=== PATIENT | female | born 1955 | race Caucasian/White ===

== ENCOUNTER 2016-11-29 21:16 | Emergency (ER) | payer MEDICAID ==
--- NOTE | 2016-11-29 21:49 | ED Physician Documentation ---
PD HPI NVD - Stated complaint Stated Complaint: NAUSEA/VOMITING - Chief complaint Chief Complaint: Abd Pain - History obtained from History obtained from: Patient - History of Present Illness Timing - onset: How many days ago (2) Timing - duration: Days (2) Timing - details: Gradual onset, Constant, Waxing and waning Pain level max: 10 Pain level now: 10 Associated symptoms: Abdominal pain. No: Fever Improved by: Laying still Worsened by: Eating, Moving, Palpation Similar symptoms before: Has not had sx before Recently seen: Not recently seen - Additonal information Additional information: c/o nausea, vomiting since 10 AM Tuesday (2 days ago). Today, unable to keep anything down (PO intake results in vomiting and cramping abd. pain). Also c/o epigastric pain Review of Systems Constitutional: denies: Fever, Chills, Sweats Eyes: reports: Reviewed and negative Ears: reports: Reviewed and negative Nose: reports: Reviewed and negative Throat: reports: Reviewed and negative Cardiac: reports: Reviewed and negative Respiratory: reports: Reviewed and negative GI: reports: Abdominal Pain, Nausea, Vomiting. denies: Abdominal Swelling, Constipation, Diarrhea : denies: Dysuria, Frequency Skin: reports: Reviewed and negative Musculoskeletal: reports: Reviewed and negative Neurologic: reports: Reviewed and negative PD PAST MEDICAL HISTORY - Past Medical History Past Medical History: Yes Cardiovascular: Hypertension Psych: Anxiety - Past Surgical History Past Surgical History: Yes - Allergies Allergies/Adverse Reactions: Allergies Allergy/AdvReac Type Severity Reaction Status Date / Time No Known Drug Allergies Allergy Verified 11/29/16 21:30 PD ED PE NORMAL - Vitals Vital signs reviewed: Yes - General General: Alert and oriented X 3, Well developed/nourished, Other (appears uncomfortable; nauseas and painful discomfort) - HEENT HEENT: Other (dry mucous membranes) - Neck Neck: Supple, no meningeal sign - Cardiac Cardiac: RRR, No murmur - Respiratory Respiratory: No respiratory distress, Clear bilaterally - Abdomen Abdomen: Normal bowel sounds, Soft - Back Back: No CVA TTP - Derm Derm: Normal color, Warm and dry - Extremities Extremities: No edema - Neuro Neuro: Alert and oriented X 3 PD ED PE EXPANDED - Abdomen Abdomen: Tender to palpation, Epigastric. No: Rebound Results - Vitals Vitals: Vital Signs - 24 hr 1011/29/16 11/29/16 21:26 22:49 23:23 Temperature 36.1 C L Heart Rate 59 L 58 L 58 L Respiratory 17 19 20 Rate Blood Pressure 91/66 127/81 H 111/67 O2 Saturation 99 99 98 11/30/16 11/30/16 11/30/16 00:01 00:20 00:49 Temperature Heart Rate 57 L 56 L 57 L Respiratory 19 19 19 Rate Blood Pressure 133/74 H 134/77 H 109/70 O2 Saturation 100 100 100 11/30/16 11/30/16 11/30/16 01:07 01:10 01:19 Temperature Heart Rate 57 L 57 L 58 L Respiratory 19 19 19 Rate Blood Pressure 113/82 H 121/67 122/67 O2 Saturation 100 100 100 11/30/16 11/30/16 01:42 02:01 Temperature Heart Rate 60 58 L Respiratory 19 18 Rate Blood Pressure 126/73 125/72 O2 Saturation 99 99 Oxygen O2 Source Nasal cannula - EKG (time done) No standard instances Rate: Rate (enter#) (54) Rhythm: Sinus bradycardia, LAE [place]: Normal Intervals: Normal [place], Prolonged QT QRS: LVH Ischemia: ST elevation c/w ischemia (V2, V3), Q waves (V2, V3), T wave inversion (V2-V6, I, aVL) - Labs Labs: Laboratory Tests 11/29/16 11/29/16 11/29/16 21:40 22:00 22:00 WBC 20.9 H RBC 5.54 H Hgb 17.0 H Hct 51.8 H MCV 93.4 MCH 30.7 MCHC 32.8 RDW 12.8 Plt Count 224 MPV 11.5 H Neut # Not Reportable Lymph # Not Reportable [place] # Not Reportable Eos # Not Reportable Baso # Not Reportable Absolute Nucleated RBC Not Reportable Total Counted 100 Band Neuts % (Manual) 3 Nucleated RBC % Not Reportable Neutrophils # (Manual) 17.3 H Lymphocytes # (Manual) 2.1 Monocytes # (Manual) 1.5 H Differential Comment MANUAL DIFFERENTIAL Manual Slide Review Indicated Platelet Estimate NORMAL (130-450,000) Platelet Morphology NORMAL APPEARANCE RBC Morph Micro Appear NORMAL APPEARANCE VBG pH VBG pCO2 VBG pO2 VBG HCO3 VBG Total CO2 VBG O2 Saturation VBG Base Excess Sodium 125 L Potassium 3.6 Chloride 92 L Carbon Dioxide 9 L* Anion Gap 24.0 H BUN 34 H Creatinine 1.1 H Estimated GFR (MDRD) 51 L Glucose 469 H Calcium 8.7 Total Bilirubin 2.5 H AST 43 H ALT 59 Alkaline Phosphatase 73 Troponin I Total Protein 7.6 Albumin 3.8 Globulin 3.8 Albumin/Globulin Ratio 1.0 Amylase 90 Lipase 20 L Urine Color Urine Clarity Urine pH Ur Specific [place] Urine Protein Urine Glucose (UA) Urine Ketones Urine Occult Blood Urine Nitrite Urine Bilirubin Urine Urobilinogen Ur Leukocyte Esterase Urine RBC Urine WBC Ur Squamous Epith Cells Urine Bacteria Urine Casts Ur Microscopic Review Urine Culture Comments Serum Ketones Group A Strep Rapid Negative 11/29/16 11/29/16 11/29/16 22:00 22:00 22:55 WBC RBC Hgb Hct MCV MCH MCHC RDW Plt Count MPV Neut # Lymph # [place] # Eos # Baso # Absolute Nucleated RBC Total Counted Band Neuts % (Manual) Nucleated RBC % Neutrophils # (Manual) Lymphocytes # (Manual) Monocytes # (Manual) Differential Comment Manual Slide Review Platelet Estimate Platelet Morphology RBC Morph Micro Appear VBG pH 7.254 L VBG pCO2 21.0 L VBG pO2 59.8 H VBG HCO3 9.1 L VBG Total CO2 9.7 L VBG O2 Saturation 90.4 H VBG Base Excess -15.4 L Sodium Potassium Chloride Carbon Dioxide Anion Gap BUN Creatinine Estimated GFR (MDRD) Glucose Calcium Total Bilirubin AST ALT Alkaline Phosphatase Troponin I 1.26 H* Total Protein Albumin Globulin Albumin/Globulin Ratio Amylase Lipase Urine Color Urine Clarity Urine pH Ur Specific [place] Urine Protein Urine Glucose (UA) Urine Ketones Urine Occult Blood Urine Nitrite Urine Bilirubin Urine Urobilinogen Ur Leukocyte Esterase Urine RBC Urine WBC Ur Squamous Epith Cells Urine Bacteria Urine Casts Ur Microscopic Review Urine Culture Comments Serum Ketones MODERATE H Group A Strep Rapid 11/30/16 01:00 WBC RBC Hgb Hct MCV MCH MCHC RDW Plt Count MPV Neut # Lymph # [place] # Eos # Baso # Absolute Nucleated RBC Total Counted Band Neuts % (Manual) Nucleated RBC % Neutrophils # (Manual) Lymphocytes # (Manual) Monocytes # (Manual) Differential Comment Manual Slide Review Platelet Estimate Platelet Morphology RBC Morph Micro Appear VBG pH VBG pCO2 VBG pO2 VBG HCO3 VBG Total CO2 VBG O2 Saturation VBG Base Excess Sodium Potassium Chloride Carbon Dioxide Anion Gap BUN Creatinine Estimated GFR (MDRD) Glucose Calcium Total Bilirubin AST ALT Alkaline Phosphatase Troponin I Total Protein Albumin Globulin Albumin/Globulin Ratio Amylase Lipase Urine Color YELLOW Urine Clarity CLEAR Urine pH 6.0 Ur Specific [place] >=1.030 H Urine Protein 30 H Urine Glucose (UA) 500 H Urine Ketones >=80 H Urine Occult Blood TRACE-INTA Urine Nitrite NEGATIVE Urine Bilirubin NEGATIVE Urine Urobilinogen 0.2 (NORMAL) Ur Leukocyte Esterase NEGATIVE Urine RBC 0-5 Urine WBC 4-5 Ur Squamous Epith Cells MOD Squamous H Urine Bacteria Rare Urine Casts 6-10 Hyaline Casts Ur Microscopic Review INDICATED Urine Culture Comments NOT INDICATED Serum Ketones Group A Strep Rapid PD MEDICAL DECISION MAKING - ED course Complexity details: reviewed results, re-evaluated patient, considered differential, d/w patient ED course: D/W Dr. Garcia (cardiology at [facility]), recommends transfer to [facility] to hospitalist' s service. D/W Dr. Vuong, accepts patient although she asks that I enter both her name and Dr. Garcia as accepting physicians. Dr. Garcia had recommended heparin, aspirin, metoprolol PO, and plavix. Aspirin was given IL, heparin initiated in ED. Patient tolerated the Plavix. I held the metoprolol, as her heart rate was mid/upper 50s. - Critical Care Time(min): 60 Time Includes: Direct patient care, Reassess patient, Document care, Coordinate care, See progress note Data interpretation: Labs, Pulse ox, CXR, See progress note Procedures included in critical care time: See progress note Procedures excluded from critical care time: See progress note Departure - Departure Disposition: 02 Transfer Acute Care Hosp Clinical Impression: STEMI (ST elevation myocardial infarction) Qualifiers: Involved coronary artery: unspecified coronary artery Qualified Code(s): I21.3 - ST elevation (STEMI) myocardial infarction of unspecified site Condition: Stable Discharge Date/Time: 11/30/16 02:40
[2016-11-29 21:56] LABS: RAPID STREP SCREEN REAGENT QC YELLOW (YELLOW)
[2016-11-29] MEDS ORDERED: ONDANSETRON 4 MG/2 ML VIAL IVP STA ×2 (22:05→22:56)
[2016-11-29] MEDS ORDERED: SODIUM CHLORIDE 0.9% 1,000 ML IV STA ×2 (22:05→23:36)
[2016-11-29 22:17] LABS: BASOPHILS % (AUTO) 0.5 %; HCT - HEMATOCRIT 51.8 % (37.0-47.0); LYMPHOCYTES % (AUTO) 10.5 %; MEAN CORPUSCULAR HEMOGLOBIN 30.7 pg (27.0-31.0); MEAN CORPUSCULAR HGB CONC 32.8 g/dL (32.0-36.0); MEAN CORPUSCULAR VOLUME 93.4 fL (81.0-99.0); MEAN PLATELET VOLUME 11.5 fL (7.9-10.8); MONOCYTES % (AUTO) 8.1 %; NEUTROPHILS % (AUTO) 80.9 %; RED BLOOD COUNT 5.54 10^6/uL (4.20-5.40); RED CELL DISTRIBUTION WIDTH 12.8 % (12.0-15.0); UNCORRECTED WHITE BLOOD COUNT 20.9 x10^3/uL; WHITE BLOOD COUNT 20.9 x10^3/uL (4.8-10.8)
[2016-11-29] MEDS ORDERED: ONDANSETRON 4 MG/2 ML VIAL ONE ×2 (22:21→23:05)
[2016-11-29 22:31] LABS: BILIRUBIN,TOTAL 2.5 mg/dL (0.2-1.0); CALCIUM 8.7 mg/dL (8.5-10.3); CREATININE 1.1 mg/dL (0.4-1.0); POTASSIUM 3.6 mmol/L (3.5-5.0); TOTAL PROTEIN 7.6 g/dL (6.7-8.2)
[2016-11-29 22:40] LABS: BAND NEUTROPHILS % (MANUAL) 3 %; LYMPHOCYTES % (MANUAL) 10 %; NEUTROPHILS % (MANUAL) 80 %; NP AUTO DIFFERENTIAL? YES; NP MAN DIFFERENTIAL? NO; PLATELET ESTIMATE, MANUAL NORMAL (130-450,000) (NORMAL); PLATELET MORPHOLOGY NORMAL APPEARANCE (NORMAL); TOTAL CELLS COUNTED 100
[2016-11-29] MEDS ORDERED: MORPHINE 2 MG/ML SYRINGE IVP STA (22:57)
[2016-11-29] MEDS ORDERED: SODIUM CHLORIDE FLUSH 0.9% 10 ML SYRINGE IVP ONE (23:05)
[2016-11-29] MEDS ORDERED: MORPHINE 2 MG/ML SYRINGE ONE (23:05)
[2016-11-29 23:09] LABS: VBG BASE EXCESS -15.4 mmol/L (-2 - +2); VBG OXYGEN SATURATION 90.4 % (60-80); VBG PH 7.254 (7.31-7.41); VBG TOTAL CO2 9.7 mmol/L (24-29)
[2016-11-30] MEDS ORDERED: NITROGLYCERIN 2% PASTE TOP STA (00:20)
[2016-11-30] MEDS ORDERED: NITROGLYCERIN 2% PASTE TOP ONE (00:28)
[2016-11-30] MEDS ORDERED: ONDANSETRON 4 MG/2 ML VIAL IVP STA (00:29)
[2016-11-30] MEDS ORDERED: HEPARIN 5,000 UNIT/ML VIAL IVP STA (00:29)
[2016-11-30] MEDS ORDERED: HEPARIN 25,000 UNITS/500 ML NS 25,000 UNIT/500 ML BAG IV STA (00:30)
[2016-11-30] MEDS ORDERED: ONDANSETRON 4 MG/2 ML VIAL ONE (00:37)
[2016-11-30] MEDS ORDERED: HEPARIN 5,000 UNIT/ML VIAL ONE (00:37)
[2016-11-30] MEDS ORDERED: HEPARIN 25,000 UNITS/500 ML NS 25,000 UNIT/500 ML BAG IV ONE (00:38)
[2016-11-30] MEDS ORDERED: SODIUM CHLORIDE FLUSH 0.9% 10 ML SYRINGE IVP ONE (00:38)
[2016-11-30] MEDS ORDERED: NITROGLYCERIN 50 MG/250 ML 50 MG/250 ML BOTTLE IV STA (00:48)
[2016-11-30] MEDS ORDERED: ASPIRIN 300 MG SUPP PR STA (00:49)
[2016-11-30] MEDS ORDERED: CLOPIDOGREL 300 MG TABLET PO STA (00:49)
--- NOTE | 2016-11-30 00:51 | XRAY Preliminary Report ---
Exam: XR CHEST 1 VIEW IMPRESSION: Normal single view chest. [facility] SITE ID: [id number]
--- NOTE | 2016-11-30 00:54 | XRAY Report ---
EXAM: CHEST RADIOGRAPHY EXAM DATE: 11/30/2016 12:41 AM. CLINICAL HISTORY: Chest pain. COMPARISON: None. TECHNIQUE: 1 view. FINDINGS: Lungs/Pleura: No focal opacities evident. No pleural effusion. No pneumothorax. Mediastinum: Within exam limitations, the cardiomediastinal contour is normal. Other: None. IMPRESSION: Normal single view chest. [facility] Referring Provider Line: [phone] SITE ID: [id number]
[2016-11-30] MEDS ORDERED: NITROGLYCERIN 50 MG/250 ML 50 MG/250 ML BOTTLE IV ONE (00:57)
[2016-11-30] MEDS ORDERED: CLOPIDOGREL 300 MG TABLET PO ONE (00:57)
[2016-11-30] MEDS ORDERED: ASPIRIN 300 MG SUPP PR ONE (00:58)
[2016-11-30 01:08] LABS: BILIRUBIN,URINE NEGATIVE (NEGATIVE); UA w/ MICROSCOPIC CHARGE YES
[2016-11-30 01:11] LABS: UR CULTURE IF IND NOT INDICATED
[2016-11-30 02:02] VITALS: BP 125/72
== END 2016-11-30 02:40 | disposition short-term general hospital (02) ==
LOC: ED 21:16
DX: I21.3 ST elevation (STEMI) myocardial infarction of unspecified site (principal); I10 Essential (primary) hypertension; R94.31 Abnormal electrocardiogram [ECG] [EKG]
CPT/HCPCS: 36415; 71010; 80053; 81001; 82009; 82150; 82803; 83690; 84484; 85025; 87070; 87430; 93005; 96361; 96365; 96368; 96375; 96376; 99285; 99291; A9270; J2270; 81003; 87086

== ENCOUNTER 2016-11-30 02:29 | Outpatient (CLI) | payer MEDICAID | END 2016-11-30 02:30 | disposition short-term general hospital (02) | LOC: EMS 02:29 | PROVIDERS: ATTEND Surgery | DX: I21.3 ST elevation (STEMI) myocardial infarction of unspecified site (principal) | CPT/HCPCS: A0425; A0426 ==

== ENCOUNTER 2017-01-03 14:20 | Outpatient (CLI) | payer MEDICAID | END 2017-01-03 14:21 | disposition home or self-care (01) | LOC: RT.S 14:20 | PROVIDERS: ATTEND Nurse Practitioner Family | DX: I21.3 ST elevation (STEMI) myocardial infarction of unspecified site (principal); I10 Essential (primary) hypertension | CPT/HCPCS: 93005 ==

== ENCOUNTER 2017-05-28 11:52 | Emergency (ER) | payer MEDICAID ==
[2017-05-28] MEDS ORDERED: SODIUM CHLORIDE 0.9% 1,000 ML IV ONE ×2 (12:04)
--- NOTE | 2017-05-28 12:21 | ED Physician Documentation ---
History of Present Illness - Stated complaint Stated Complaint: HIGH BS/VOMITING - Chief complaint Chief Complaint: Abd Pain - History obtained from History obtained from: Patient - History of Present Illness Timing: Today Pain level max: 0 Pain level now: 0 Improved by: nothing Worsened by: nothing - Additonal information Additional information: states blood sugar of 500 this am. Emesis x 1. States had an MT approx 6 months ago, no stents placed. no interventions. Has mild dyspnea over the past few days. States has an inhaler. Mild chest pain with palpation or moving. Takes Lantus 30 units midday. States dx with DM in 11/30. No diarrhea. Doesn' t know her home meds. No urinary symptoms. No headache. No cough. no travel. no recent abx. Review of Systems Ten Systems: 10 systems reviewed and negative Constitutional: denies: Fever, Chills Nose: denies: Rhinorrhea / runny nose, Congestion Throat: denies: Sore throat Cardiac: denies: Palpitations Respiratory: denies: Dyspnea, Cough, Wheezing GI: reports: Vomiting. denies: Diarrhea : denies: Dysuria, Frequency, Hesitancy Skin: denies: Rash Musculoskeletal: denies: Neck pain, Back pain Neurologic: denies: Headache PD PAST MEDICAL HISTORY - Past Medical History Past Medical History: Yes Cardiovascular: Hypertension Respiratory: None Neuro: None Endocrine/Autoimmune: None GI: None CHANNELER: None : None HEENT: None Psych: Anxiety Musculoskeletal: None Derm: None - Past Surgical History Past Surgical History: Yes /CHANNELER: section HEENT: Tonsil/Adenoidectomy - Present Medications Home Medications: Ambulatory Orders Medication Instructions Recorded Confirmed Furosemide [Furosemide] 05/28/17 05/28/17 Insulin Glargine [Lantus Solostar] 05/28/17 05/28/17 Insulin Lispro [Humalog] 05/28/17 Lisinopril [Lisinopril] 05/28/17 PARoxetine HCl [Paroxetine HCl] 05/28/17 Spironolactone [Spironolactone] 05/28/17 - Allergies Allergies/Adverse Reactions: Allergies Allergy/AdvReac Type Severity Reaction Status Date / Time No Known Drug Allergies Allergy Verified 11/29/16 21:30 - Social History Does the pt smoke?: Yes Smoking Status: Current every day smoker Does the pt drink ETOH?: Yes Does the pt have substance abuse?: No - POLST Patient has POLST: No PD ED PE NORMAL - Vitals Vital signs reviewed: Yes - General General: Alert and oriented X 3, No acute distress, Well developed/nourished - HEENT HEENT: PERRL, Moist mucous membranes - Neck Neck: Supple, no meningeal sign - Cardiac Cardiac: RRR, Strong equal pulses, Other (mild TTP over the anterior chest wall. ) - Respiratory Respiratory: No respiratory distress, Clear bilaterally - Abdomen Abdomen: Soft, Non tender, Non distended - Back Back: No CVA TTP - Derm Derm: Warm and dry - Extremities Extremities: No edema - Neuro Neuro: Alert and oriented X 3 - Psych Psych: Normal mood, Normal affect Results - Vitals Vitals: Vital Signs - 24 hr 05/28/17 05/28/17 05/28/17 12:00 13:17 13:30 Temperature 36.8 C Heart Rate 60 62 72 Respiratory 18 19 18 Rate Blood Pressure 174/54 H 163/97 H O2 Saturation 97 97 95 05/28/17 14:39 Temperature Heart Rate 70 Respiratory 18 Rate Blood Pressure 143/78 H O2 Saturation 96 Oxygen O2 Source Room air - EKG (time done) 1208 Rate: Rate (enter#) (66) Rhythm: NSR [place]: Normal Intervals: Normal [place], Prolonged QT (borderline) QRS: Normal Ischemia: Normal ST segments - Labs Labs: Laboratory Tests 05/28/17 05/28/17 05/28/17 12:00 12:23 12:23 WBC 13.7 H RBC 4.32 Hgb 13.0 Hct 38.4 MCV 88.9 MCH 30.0 MCHC 33.7 RDW 12.9 Plt Count 182 MPV 10.5 Neut # 11.6 H Lymph # 1.5 [place] # 0.5 Eos # 0.0 Baso # 0.1 Absolute Nucleated RBC 0.01 Nucleated RBC % 0.0 VBG pH VBG pCO2 VBG pO2 VBG HCO3 VBG Total CO2 VBG O2 Saturation VBG Base Excess Sodium 131 L Potassium 4.7 Chloride 96 L Carbon Dioxide 23 Anion Gap 12.0 BUN 31 H Creatinine 1.0 Estimated GFR (MDRD) 57 L Glucose 474 H POC Whole Bld Glucose 470 H Calcium 9.5 Total Bilirubin 0.8 AST 20 ALT 23 Alkaline Phosphatase 68 Troponin I Total Protein 7.8 Albumin 4.0 Globulin 3.8 Albumin/Globulin Ratio 1.1 Lipase 14 L Urine Color Urine Clarity Urine pH Ur Specific [place] Urine Protein Urine Glucose (UA) Urine Ketones Urine Occult Blood Urine Nitrite Urine Bilirubin Urine Urobilinogen Ur Leukocyte Esterase Ur Microscopic Review Urine Culture Comments Serum Ketones NEGATIVE 05/28/17 05/28/17 05/28/17 12:23 12:23 13:25 WBC RBC Hgb Hct MCV MCH MCHC RDW Plt Count MPV Neut # Lymph # [place] # Eos # Baso # Absolute Nucleated RBC Nucleated RBC % VBG pH 7.361 VBG pCO2 41.9 VBG pO2 35.0 VBG HCO3 23.2 VBG Total CO2 24.5 VBG O2 Saturation 68.4 VBG Base Excess -2.2 L Sodium Potassium Chloride Carbon Dioxide Anion Gap BUN Creatinine Estimated GFR (MDRD) Glucose POC Whole Bld Glucose Calcium Total Bilirubin AST ALT Alkaline Phosphatase Troponin I < 0.04 Total Protein Albumin Globulin Albumin/Globulin Ratio Lipase Urine Color YELLOW Urine Clarity CLEAR Urine pH 5.0 Ur Specific [place] 1.010 Urine Protein NEGATIVE Urine Glucose (UA) >=1000 H Urine Ketones 15 H Urine Occult Blood NEGATIVE Urine Nitrite NEGATIVE Urine Bilirubin NEGATIVE Urine Urobilinogen 0.2 (NORMAL) Ur Leukocyte Esterase NEGATIVE Ur Microscopic Review NOT INDICATED Urine Culture Comments NOT INDICATED Serum Ketones 05/28/17 05/28/17 14:00 14:35 WBC RBC Hgb Hct MCV MCH MCHC RDW Plt Count MPV Neut # Lymph # [place] # Eos # Baso # Absolute Nucleated RBC Nucleated RBC % VBG pH VBG pCO2 VBG pO2 VBG HCO3 VBG Total CO2 VBG O2 Saturation VBG Base Excess Sodium Potassium Chloride Carbon Dioxide Anion Gap BUN Creatinine Estimated GFR (MDRD) Glucose POC Whole Bld Glucose 425 H 350 H Calcium Total Bilirubin AST ALT Alkaline Phosphatase Troponin I Total Protein Albumin Globulin Albumin/Globulin Ratio Lipase Urine Color Urine Clarity Urine pH Ur Specific [place] Urine Protein Urine Glucose (UA) Urine Ketones Urine Occult Blood Urine Nitrite Urine Bilirubin Urine Urobilinogen Ur Leukocyte Esterase Ur Microscopic Review Urine Culture Comments Serum Ketones PD MEDICAL DECISION MAKING - ED course Complexity details: reviewed results, re-evaluated patient, considered differential, d/w patient, d/w family ED course: Patient is a 61-year-old female who presents to the emergency department with elevated blood sugars and vomiting 1. States she is not feeling well in general. Given IV fluids as well as insulin. Blood sugar decreased and she feels much improved. Tolerating p.o. without difficulty. Counseled at length regarding the importance of checking her blood sugar at home, taking her Lantus as prescribed and following up closely with her doctor so they can adjust her medications. Patient also counseled at length regarding the complications of diabetes. Patient counseled regarding signs and symptoms for which I believe and urgent re-evaluation would be necessary. Patient with good understanding of and agreement to plan and is comfortable going home at this time This document was made in part using voice recognition software. While efforts are made to proofread this document, sound alike and grammatical errors may occur. Departure - Departure Disposition: 01 Home, Self Care Clinical Impression: Hyperglycemia Condition: Good Instructions: ED Hyperglycemia Diabetic Follow-Up: Cici Hill ARNP [Primary Care Provider] - Within 1 week Comments: You need to take your lantus on a regular schedule and keep track of your blood sugars so your doctor can adjust your medications. Return if you worsen. Discharge Date/Time: 05/28/17 14:39
[2017-05-28 12:30] LABS: BASOPHILS # (AUTO) 0.1 10^3/uL (0.0-0.1); BASOPHILS % (AUTO) 0.6 %; EOSINOPHILS % (AUTO) 0.2 %; LYMPHOCYTES # (AUTO) 1.5 10^3/uL (1.5-3.5); LYMPHOCYTES % (AUTO) 10.9 %; MEAN CORPUSCULAR HGB CONC 33.7 g/dL (32.0-36.0); MEAN CORPUSCULAR VOLUME 88.9 fL (81.0-99.0); MEAN PLATELET VOLUME 10.5 fL (7.9-10.8); MONOCYTES # (AUTO) 0.5 10^3/uL (0.0-1.0); MONOCYTES % (AUTO) 3.7 %; NEUTROPHILS # (AUTO) 11.6 10^3/uL (1.5-6.6); NEUTROPHILS % (AUTO) 84.6 %; PLT - PLATELET COUNT 182 10^3/uL (130-450); RED BLOOD COUNT 4.32 10^6/uL (4.20-5.40); RED CELL DISTRIBUTION WIDTH 12.9 % (12.0-15.0); WHITE BLOOD COUNT 13.7 x10^3/uL (4.8-10.8)
[2017-05-28 12:33] LABS: VBG BASE EXCESS -2.2 mmol/L (-2 - +2); VBG PCO2 41.9 mmHg (41-51); VBG PH 7.361 (7.31-7.41); VBG TOTAL CO2 24.5 mmol/L (24-29)
[2017-05-28 12:41] LABS: ALBUMIN/GLOBULIN RATIO 1.1 (1.0-2.2); ALKALINE PHOSPHATASE 68 IU/L (42-121); ALT ALANINE AMINOTRANSFERASE 23 IU/L (10-60); AST ASPARTATE AMINOTRANSFERASE 20 IU/L (10-42); BILIRUBIN,TOTAL 0.8 mg/dL (0.2-1.0); BUN - BLOOD UREA NITROGEN 31 mg/dL (6-20); CALCIUM 9.5 mg/dL (8.5-10.3); CARBON DIOXIDE - CO2 23 mmol/L (21-32); CHLORIDE 96 mmol/L (101-111); GFR - MDRD 57 (>89); GLUCOSE 474 mg/dL (70-100); LIPASE 14 U/L (22-51); SODIUM 131 mmol/L (135-145); TOTAL PROTEIN 7.8 g/dL (6.7-8.2)
[2017-05-28] MEDS ORDERED: INSULIN REGULAR HUMAN 100 UNIT/1 ML 10 ML MDV IVP STA (12:51)
[2017-05-28] MEDS ORDERED: INSULIN REGULAR HUMAN 100 UNIT/1 ML 10 ML MDV SUBQ STA (12:51)
[2017-05-28 13:10] LABS: KETONES, SERUM (ACETEST) NEGATIVE (NEGATIVE)
[2017-05-28 13:39] LABS: BILIRUBIN,URINE NEGATIVE (NEGATIVE); GLUCOSE, URINE (UA) >=1000 mg/dL (NEGATIVE); KETONES,URINE (UA) 15 mg/dL (NEGATIVE); LEUKOCYTE ESTERASE, URINE NEGATIVE (NEGATIVE); NITRITE,URINE NEGATIVE (NEGATIVE); OCCULT BLOOD,URINE NEGATIVE (NEGATIVE); PROTEIN,URINE NEGATIVE (NEGATIVE); UROBILINOGEN,URINE 0.2 (NORMAL) E.U./dL (NORMAL)
[2017-05-28 13:40] LABS: CLARITY,URINE CLEAR (CLEAR)
[2017-05-28] MEDS ORDERED: PROMETHAZINE INJ 12.5 MG in SODIUM CHLORIDE 0.9% 50 ML IV STA (13:47)
[2017-05-28 14:39] VITALS: BP 143/78
== END 2017-05-28 14:39 | disposition home or self-care (01) ==
LOC: ED 11:52
DX: E11.65 Type 2 diabetes mellitus with hyperglycemia (principal); I25.2 Old myocardial infarction; I10 Essential (primary) hypertension; F17.200 Nicotine dependence, unspecified, uncomplicated; Z79.4 Long term (current) use of insulin
CPT/HCPCS: 36415; 80053; 81003; 82009; 82803; 83690; 84484; 85025; 96365; 99284; J1815; J7040; 81001; 87086; 93005

== ENCOUNTER 2017-11-11 06:51 | Emergency (ER) | payer MEDICAID ==
[2017-11-11] MEDS ORDERED: NITROGLYCERIN SL 0.4 MG TABLET SL STA (07:12)
[2017-11-11] MEDS ORDERED: SODIUM CHLORIDE 0.9% 1,000 ML IV ONE ×2 (07:12→08:47)
[2017-11-11] MEDS ORDERED: ASPIRIN CHEW 81 MG TABLET PO STA (07:12)
--- NOTE | 2017-11-11 07:18 | ED Physician Documentation ---
PD HPI CHEST PAIN - Stated complaint Stated Complaint: CHEST PX/VOMITING - Chief complaint Chief Complaint: Cardiac - History obtained from History obtained from: Patient - History of Present Illness Timing - onset: How many hours ago (2) Timing - onset during: Rest Timing - details: Still present Pain level max: 10 Pain level now: 7 Quality: Tightness Location: Substernal Associated symptoms: Shortness of air, Nausea, Vomiting Similar symptoms before: Diagnosis (History of similar symptoms with anterior CT in November 2016.), Work up / diagnostics (Cardiac cath in November 2016 showed normal coronary arteries. Spasm of proximal LAD suspected.) - Additional information Additional information: Patient is a 62-year-old insulin-dependent diabetic female who presents with chest tightness that started about 2 hours prior to arrival. She has been feeling ill for the past 2 days, with nausea and vomiting. She reports air hunger and occasional diaphoresis. She reports history of similar symptoms and review of her medical record reveals anterior CT in November 2016. Cardiac catheterization at that time revealed no significant coronary artery occlusion, and the suspected culprit was spasm of the proximal LAD. Review of Systems Constitutional: reports: Sweats. denies: Fever, Chills Ears: denies: Tinnitus/ringing Nose: denies: Congestion Throat: denies: Sore throat Cardiac: reports: Chest pain / pressure Respiratory: reports: Dyspnea. denies: Cough GI: reports: Nausea, Vomiting. 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 HEENT: Tonsil/Adenoidectomy - Present Medications Home Medications: Ambulatory Orders Medication Instructions Recorded Confirmed Furosemide 05/28/17 05/28/17 Insulin Glargine [Lantus Solostar] 05/28/17 05/28/17 Insulin Lispro [Humalog] 05/28/17 Lisinopril 05/28/17 PARoxetine HCl [Paroxetine HCl] 05/28/17 Spironolactone 05/28/17 Aspirin 81 mg PO 11/11/17 Metoprolol Succinate 25 mg PO DAILY 11/11/17 11/11/17 hydrOXYzine pamoate [Hydroxyzine 1 cap PO Q4H PRN 11/11/17 11/11/17 Pamoate] - Allergies Allergies/Adverse Reactions: Allergies Allergy/AdvReac Type Severity Reaction Status Date / Time No Known Drug Allergies Allergy Verified 11/11/17 07:23 - Social History Does the pt smoke?: Yes Smoking Status: Current every day smoker Does the pt drink ETOH?: Yes Does the pt have substance abuse?: No - POLST Patient has POLST: No PD ED PE NORMAL - Vitals Vital signs reviewed: Yes (hypertensive) - General General: Alert and oriented X 3, Well developed/nourished, Other (Appears distressed.) - HEENT HEENT: Atraumatic, Other (Dry mucous membranes.) - Neck Neck: Supple, no meningeal sign, No adenopathy, No JVD - Cardiac Cardiac: RRR, No murmur - Respiratory Respiratory: No respiratory distress, Clear bilaterally - Abdomen Abdomen: Soft, Non tender - Back Back: No CVA TTP - Derm Derm: No rash - Extremities Extremities: No edema, No calf tenderness / cord - Neuro Neuro: Alert and oriented X 3, No motor deficit, No sensory deficit Results - Vitals Vitals: Vital Signs - 24 hr 11/11/17 11/11/17 11/11/17 06:54 07:25 07:30 Temperature 36.8 C Heart Rate 73 70 83 Respiratory 24 24 20 Rate Blood Pressure 212/118 H 181/159 H 186/99 H O2 Saturation 100 99 99 11/11/17 11/11/17 11/11/17 07:49 08:10 08:57 Temperature Heart Rate 63 64 64 Respiratory 23 20 16 Rate Blood Pressure 185/106 H 185/106 H 198/111 H O2 Saturation 99 100 99 11/11/17 11/11/17 11/11/17 10:23 11:58 12:09 Temperature Heart Rate 81 82 75 Respiratory 20 23 20 Rate Blood Pressure 161/101 H 191/123 H 192/104 H O2 Saturation 99 97 96 11/11/17 11/11/17 11/11/17 12:21 12:30 12:45 Temperature Heart Rate 74 75 70 Respiratory 19 20 22 Rate Blood Pressure 184/108 H 172/103 H 181/103 H O2 Saturation 96 97 93 11/11/17 11/11/17 13:50 14:00 Temperature Heart Rate 86 82 Respiratory 18 18 Rate Blood Pressure 113/78 132/73 H O2 Saturation 99 99 Oxygen O2 Source Room air - EKG (time done) 06:56 Rate: Rate (enter#) (66) Rhythm: NSR [place]: Normal Intervals: Normal [place] Ischemia: Q waves (in V2 and V3, consistent with previous anterior CT.) Compare to prior EKG: Changed from prior EKG (Q waves in V2-3 are new compared to prior tracing of 05/28/17.) Computer interpretation: Agree with computer 12:11 Rate: Rate (enter#) (74) Rhythm: NSR [place]: LAD (borderline LAD) Intervals: Normal [place], Prolonged QT Ischemia: Q waves (in V2) Compare to prior EKG: Changed from prior EKG (Slight ST depression in V3 is new since prior tracing of 6:56 today.) Computer interpretation: Agree with computer - Labs Labs: Laboratory Tests 11/11/17 11/11/17 11/11/17 07:25 07:25 07:25 WBC 14.7 H RBC 4.35 Hgb 12.9 Hct 39.1 MCV 89.9 MCH 29.7 MCHC 33.1 RDW 13.6 Plt Count 203 MPV 11.0 H Neut # (Auto) 12.4 H Lymph # (Auto) 1.7 [place] # (Auto) 0.6 Eos # (Auto) 0.0 Baso # (Auto) 0.0 Absolute Nucleated RBC 0.00 Nucleated RBC % 0.0 VBG pH VBG pCO2 VBG pO2 VBG HCO3 VBG Total CO2 VBG O2 Saturation VBG Base Excess Sodium 128 L Potassium 3.8 Chloride 98 L Carbon Dioxide 16 L Anion Gap 14.0 H BUN 33 H Creatinine 1.1 H Estimated GFR (MDRD) 50 L Glucose 620 H* POC Whole Bld Glucose Calcium 8.7 Total Bilirubin 1.0 AST 26 ALT 26 Alkaline Phosphatase 84 Troponin I 0.05 Total Protein 7.0 Albumin 3.5 Globulin 3.5 Albumin/Globulin Ratio 1.0 Lipase 28 Urine Color Urine Clarity Urine pH Ur Specific [place] Urine Protein Urine Glucose (UA) Urine Ketones Urine Occult Blood Urine Nitrite Urine Bilirubin Urine Urobilinogen Ur Leukocyte Esterase Ur Microscopic Review Urine Culture Comments 09/11/11/17 11/11/17 07:35 08:05 08:24 WBC RBC Hgb Hct MCV MCH MCHC RDW Plt Count MPV Neut # (Auto) Lymph # (Auto) [place] # (Auto) Eos # (Auto) Baso # (Auto) Absolute Nucleated RBC Nucleated RBC % VBG pH 7.436 H VBG pCO2 25.5 L VBG pO2 146.1 H VBG HCO3 16.8 L VBG Total CO2 17.6 L VBG O2 Saturation 98.6 H VBG Base Excess -5.7 L Sodium Potassium Chloride Carbon Dioxide Anion Gap BUN Creatinine Estimated GFR (MDRD) Glucose POC Whole Bld Glucose 531 H* Calcium Total Bilirubin AST ALT Alkaline Phosphatase Troponin I Total Protein Albumin Globulin Albumin/Globulin Ratio Lipase Urine Color YELLOW Urine Clarity CLEAR Urine pH 5.5 Ur Specific [place] <=1.005 Urine Protein NEGATIVE Urine Glucose (UA) >=1000 H Urine Ketones 15 H Urine Occult Blood NEGATIVE Urine Nitrite NEGATIVE Urine Bilirubin NEGATIVE Urine Urobilinogen 0.2 (NORMAL) Ur Leukocyte Esterase NEGATIVE Ur Microscopic Review NOT INDICATED Urine Culture Comments NOT INDICATED 11/11/17 11/11/17 11/11/17 09:41 10:38 10:58 WBC RBC Hgb Hct MCV MCH MCHC RDW Plt Count MPV Neut # (Auto) Lymph # (Auto) [place] # (Auto) Eos # (Auto) Baso # (Auto) Absolute Nucleated RBC Nucleated RBC % VBG pH VBG pCO2 VBG pO2 VBG HCO3 VBG Total CO2 VBG O2 Saturation VBG Base Excess Sodium Potassium Chloride Carbon Dioxide Anion Gap BUN Creatinine Estimated GFR (MDRD) Glucose POC Whole Bld Glucose 465 H 430 H Calcium Total Bilirubin AST ALT Alkaline Phosphatase Troponin I 0.22 Total Protein Albumin Globulin Albumin/Globulin Ratio Lipase Urine Color Urine Clarity Urine pH Ur Specific [place] Urine Protein Urine Glucose (UA) Urine Ketones Urine Occult Blood Urine Nitrite Urine Bilirubin Urine Urobilinogen Ur Leukocyte Esterase Ur Microscopic Review Urine Culture Comments 11/11/17 11/11/17 11:52 12:59 WBC RBC Hgb Hct MCV MCH MCHC RDW Plt Count MPV Neut # (Auto) Lymph # (Auto) [place] # (Auto) Eos # (Auto) Baso # (Auto) Absolute Nucleated RBC Nucleated RBC % VBG pH VBG pCO2 VBG pO2 VBG HCO3 VBG Total CO2 VBG O2 Saturation VBG Base Excess Sodium Potassium Chloride Carbon Dioxide Anion Gap BUN Creatinine Estimated GFR (MDRD) Glucose POC Whole Bld Glucose 418 H 353 H Calcium Total Bilirubin AST ALT Alkaline Phosphatase Troponin I Total Protein Albumin Globulin Albumin/Globulin Ratio Lipase Urine Color Urine Clarity Urine pH Ur Specific [place] Urine Protein Urine Glucose (UA) Urine Ketones Urine Occult Blood Urine Nitrite Urine Bilirubin Urine Urobilinogen Ur Leukocyte Esterase Ur Microscopic Review Urine Culture Comments - Rads (name of study) Portable CXR Radiology: Prelim report reviewed, EMP read contemporaneously, See rad report (Mildly prominent diffuse bilateral interstitial markings may be due to mild edema or fibrotic changes. No pulmonary vascular congestion or other acute change.) PD MEDICAL DECISION MAKING - ED course Complexity details: reviewed old records, reviewed results, re-evaluated patient, considered differential, d/w patient, d/w family, d/w hospice consultant ED course: The patient's presentation is most consistent with non-ST elevation CT, with a mildly elevated troponin of 0.22. Her EKG revealed less than [address] elevation in precordial leads V2 and V3. In addition she is an insulin-dependent diabetic who presents with a blood sugar of 620. She appears significantly dehydrated with dry buccal mucosa. She does not appear to be in diabetic ketoacidosis. Venous blood gas reveals a pH of 7.43. Serum bicarb is low at 16. Treatment in the emergency department included administration of 4 baby aspirin orally, sublingual nitroglycerin x3, normal saline 2 L IV, insulin 10 units IV followed by insulin drip. Her chest pain improved slightly with the above treatment but she continued to feel anxious and dyspneic. Ativan 0.5 mg was administered IV, along with morphine 2 mg IV. She felt subjectively much improved. Repeat insulin improved to 539. Repeat troponin increased from 0.05 initially to 0.22 three hours after the initial troponin. Although her chest pain initially almost completely resolved with the previously administered nitroglycerin and morphine, the pain recurred. She was started on a nitroglycerin drip, as well as heparin bolus and infusion as per cardiac protocol. Clopidogrel 300 mg administered orally. The patient's chest pain subsequently resolved, and her blood pressure improved to 129/73. I discussed her condition with Dr. Steven, membership advisor at [facility]. He agrees to accept her for Cardiology, but asks that the hospitalist be the accepting transfer physician. I discussed her condition with Dr. Ramirez, who will accept her in transfer. Transfer forms were completed. Recent blood sugar is 353, BP 129/73, HR 70, and pulse oximetry 96% on RA. - Critical Care Time(min): 70 Time Includes: Direct patient care, Review records, Reassess patient, Document care, Coordinate care Data interpretation: Labs, Pulse ox, CXR, Prior EKG Procedures excluded from critical care time: EKG - Sepsis Event Vital Signs: Vital Signs - 24 hr 11/11/17 11/11/17 11/11/17 06:54 07:25 07:30 Temperature 36.8 C Heart Rate 73 70 83 Respiratory 24 24 20 Rate Blood Pressure 212/118 H 181/159 H 186/99 H O2 Saturation 100 99 99 11/11/17 11/11/17 11/11/17 07:49 08:10 08:57 Temperature Heart Rate 63 64 64 Respiratory 23 20 16 Rate Blood Pressure 185/106 H 185/106 H 198/111 H O2 Saturation 99 100 99 11/11/17 11/11/17 11/11/17 10:23 11:58 12:09 Temperature Heart Rate 81 82 75 Respiratory 20 23 20 Rate Blood Pressure 161/101 H 191/123 H 192/104 H O2 Saturation 99 97 96 11/11/17 11/11/17 11/11/17 12:21 12:30 12:45 Temperature Heart Rate 74 75 70 Respiratory 19 20 22 Rate Blood Pressure 184/108 H 172/103 H 181/103 H O2 Saturation 96 97 93 11/11/17 11/11/17 13:50 14:00 Temperature Heart Rate 86 82 Respiratory 18 18 Rate Blood Pressure 113/78 132/73 H O2 Saturation 99 99 Oxygen O2 Source Room air Departure - Departure Disposition: 02 Transfer Acute Care Hosp Clinical Impression: Non-ST elevated myocardial infarction, Dehydration Diabetes mellitus with hyperglycemia, with long-term current use of insulin Qualifiers: Diabetes mellitus type: type 2 Qualified Code(s): E11.65 - Type 2 diabetes mellitus with hyperglycemia Condition: Fair Discharge Date/Time: 11/11/17 14:32
[2017-11-11 07:30] LABS: BASOPHILS % (AUTO) 0.3 %; HGB - HEMOGLOBIN 12.9 g/dL (12.0-16.0); LYMPHOCYTES # (AUTO) 1.7 10^3/uL (1.5-3.5); LYMPHOCYTES % (AUTO) 11.3 %; MEAN CORPUSCULAR HEMOGLOBIN 29.7 pg (27.0-31.0); MEAN CORPUSCULAR HGB CONC 33.1 g/dL (32.0-36.0); MEAN CORPUSCULAR VOLUME 89.9 fL (81.0-99.0); MONOCYTES # (AUTO) 0.6 10^3/uL (0.0-1.0); MONOCYTES % (AUTO) 3.9 %; NEUTROPHILS # (AUTO) 12.4 10^3/uL (1.5-6.6); NEUTROPHILS % (AUTO) 84.5 %; PLT - PLATELET COUNT 203 10^3/uL (130-450); RED BLOOD COUNT 4.35 10^6/uL (4.20-5.40); RED CELL DISTRIBUTION WIDTH 13.6 % (12.0-15.0); WHITE BLOOD COUNT 14.7 x10^3/uL (4.8-10.8)
[2017-11-11] MEDS ORDERED: LORazepam 2 MG/ML VIAL IVP STA (07:41)
[2017-11-11] MEDS ORDERED: ONDANSETRON 4 MG/2 ML VIAL IVP STA ×2 (07:41→10:26)
[2017-11-11] MEDS ORDERED: INSULIN REGULAR HUMAN 100 UNIT in SODIUM CHLORIDE 0.9% 100ML 99 ML IV STA (07:46)
[2017-11-11] MEDS ORDERED: INSULIN REGULAR HUMAN 100 UNIT/1 ML 10 ML MDV IVP STA (07:46)
[2017-11-11 07:47] LABS: ALBUMIN 3.5 g/dL (3.2-5.5); CALCIUM 8.7 mg/dL (8.5-10.3); CREATININE 1.1 mg/dL (0.4-1.0)
[2017-11-11 07:51] LABS: BILIRUBIN,URINE NEGATIVE (NEGATIVE); GLUCOSE, URINE (UA) >=1000 mg/dL (NEGATIVE); KETONES,URINE (UA) 15 mg/dL (NEGATIVE); LEUKOCYTE ESTERASE, URINE NEGATIVE (NEGATIVE); NITRITE,URINE NEGATIVE (NEGATIVE); OCCULT BLOOD,URINE NEGATIVE (NEGATIVE); PH,URINE 5.5 PH (5.0-7.5); PROTEIN,URINE NEGATIVE (NEGATIVE); UROBILINOGEN,URINE 0.2 (NORMAL) E.U./dL (NORMAL)
[2017-11-11 07:54] LABS: CLARITY,URINE CLEAR (CLEAR)
--- NOTE | 2017-11-11 08:09 | XRAY Report ---
Reason: chest pain Procedure Date: 11/11/2017 Accession Number: [id number] / [id number] Procedure: XR - Chest 1 View X-Ray CPT Code: 93184 FULL RESULT: EXAM: CHEST RADIOGRAPHY EXAM DATE: 11/11/2017 07:37 AM. CLINICAL HISTORY: Chest pain. Nausea. COMPARISON: CHEST 1 VIEW 11/30/2016 12:38 AM. TECHNIQUE: 1 view. FINDINGS: Lungs/Pleura: There are mildly prominent diffuse bilateral interstitial opacities. No pulmonary vascular congestion. No focal opacities evident. No pleural effusion. No pneumothorax. Mediastinum: Within exam limitations, the cardiomediastinal contour is normal. There is mild atherosclerotic calcification of the aortic arch. Other: No acute osseous abnormality. IMPRESSION: Mildly prominent diffuse bilateral interstitial markings may be due to mild edema or fibrotic changes. No pulmonary vascular congestion or other acute change. RADIA
[2017-11-11 08:23] LABS: VBG PH 7.436 (7.31-7.41)
[2017-11-11 08:24] LABS: VBG BASE EXCESS -5.7 mmol/L (-2 - +2); VBG PCO2 25.5 mmHg (41-51); VBG PO2 146.1 mmHg (25-47); VBG TOTAL CO2 17.6 mmol/L (24-29)
[2017-11-11] MEDS ORDERED: CLOPIDOGREL 300 MG TABLET PO STA (11:34)
[2017-11-11] MEDS ORDERED: HEPARIN 25000UNITS/500ML (D5W) 25,000 UNIT/500 ML BAG IV STA (11:34)
[2017-11-11] MEDS ORDERED: NITROGLYCERIN 50 MG/250 ML 50 MG/250 ML BOTTLE IV SCH (12:00)
[2017-11-11 14:55] VITALS: BP 132/73
== END 2017-11-11 14:32 | disposition short-term general hospital (02) ==
LOC: ED 06:51
DX: I21.4 Non-ST elevation (NSTEMI) myocardial infarction (principal); E86.0 Dehydration; E11.65 Type 2 diabetes mellitus with hyperglycemia; R94.31 Abnormal electrocardiogram [ECG] [EKG]; I10 Essential (primary) hypertension; Z79.4 Long term (current) use of insulin; F17.200 Nicotine dependence, unspecified, uncomplicated
CPT/HCPCS: 36415; 71045; 80053; 81003; 82803; 83690; 84484; 85025; 93005; 96361; 96365; 96368; 96375; 96376; 99291; A9270; J1815; J2060; 81001; 87086; 99285

== ENCOUNTER 2017-11-11 14:34 | Outpatient (CLI) | payer MEDICAID | END 2017-11-11 14:35 | disposition short-term general hospital (02) | LOC: EMS 14:34 | PROVIDERS: ATTEND Surgery | DX: R07.9 Chest pain, unspecified (principal) | CPT/HCPCS: A0425; A0426; A0999 ==

== ENCOUNTER 2018-08-12 12:32 | Observation (INO) | payer MEDICAID ==
[2018-08-12 14:04] LABS: BASOPHILS # (AUTO) 0.1 10^3/uL (0.0-0.1); BASOPHILS % (AUTO) 0.5 %; HGB - HEMOGLOBIN 12.4 g/dL (12.0-16.0); LYMPHOCYTES # (AUTO) 1.4 10^3/uL (1.5-3.5); MEAN CORPUSCULAR HEMOGLOBIN 29.6 pg (27.0-31.0); MEAN CORPUSCULAR HGB CONC 34.3 g/dL (32.0-36.0); MEAN CORPUSCULAR VOLUME 86.2 fL (81.0-99.0); MEAN PLATELET VOLUME 12.9 fL (7.9-10.8); MONOCYTES # (AUTO) 0.6 10^3/uL (0.0-1.0); MONOCYTES % (AUTO) 3.7 %; NEUTROPHILS # (AUTO) 13.2 10^3/uL (1.5-6.6); NEUTROPHILS % (AUTO) 85.1 %; PLT - PLATELET COUNT 197 10^3/uL (130-450); RED BLOOD COUNT 4.19 10^6/uL (4.20-5.40); WHITE BLOOD COUNT 15.5 x10^3/uL (4.8-10.8)
--- NOTE | 2018-08-12 14:11 | ED Physician Documentation ---
History of Present Illness - Stated complaint Stated Complaint: WEAKNESS - Chief complaint Chief Complaint: General - History obtained from History obtained from: Patient - Additonal information Additional information: Feels weak with FSBS "high," central chest tightness, anxious and dyspneic. Started today around 9am. Takes insulin. Preceded by vomiting and diarrhea x 2 days. Of note she does use marijuana products daily. Potential coronary disease, 2 minor heart attacks but negative angiography per her both times. Also she is on Eliquis and although she does not specifically recognize the term atrial fibrillation but does admit to an irregular heartbeat in the past. No history of DVT or PE per her. She is been running low on her insulins and initially says she is been taking them as prescribed but then admits to trying to stretch them out and taking a lower dose last night. Review of Systems Ten Systems: 10 systems reviewed and negative Constitutional: reports: Chills, Fatigue. denies: Weight Loss Cardiac: reports: Chest pain / pressure. denies: Palpitations Respiratory: reports: Dyspnea. 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 HEENT: Tonsil/Adenoidectomy - Present Medications Home Medications: Ambulatory Orders Medication Instructions Recorded Confirmed Furosemide 05/28/17 05/28/17 Insulin Glargine [Lantus Solostar] 05/28/17 05/28/17 Insulin Lispro [Humalog] 05/28/17 Lisinopril 05/28/17 PARoxetine HCl [Paroxetine HCl] 05/28/17 Spironolactone 05/28/17 Aspirin 81 mg PO 11/11/17 Metoprolol Succinate 25 mg PO DAILY 11/11/17 11/11/17 hydrOXYzine pamoate [Hydroxyzine 1 cap PO Q4H PRN 11/11/17 11/11/17 Pamoate] - Allergies Allergies/Adverse Reactions: Allergies Allergy/AdvReac Type Severity Reaction Status Date / Time No Known Drug Allergies Allergy Verified 11/11/17 07:23 - Social History Does the pt smoke?: Yes Smoking Status: Current every day smoker Does the pt drink ETOH?: Yes Does the pt have substance abuse?: No - Family History Family history: reports: Non contributory - POLST Patient has POLST: No PD ED PE NORMAL - Vitals Vital signs reviewed: Yes - General General: Alert and oriented X 3, Other (dyspneic/hyperventilating) - HEENT HEENT: PERRL, EOMI, Other (dry MM) - Neck Neck: Supple, no meningeal sign, No bony TTP - Cardiac Cardiac: RRR, No murmur - Respiratory Respiratory: No respiratory distress, Clear bilaterally - Abdomen Abdomen: Normal bowel sounds, Soft, Non tender - Back Back: No CVA TTP, No spinal TTP - Extremities Extremities: No edema, No calf tenderness / cord - Neuro Neuro: Alert and oriented X 3, Normal speech Results - Vitals Vitals: Vital Signs - 24 hr 08/12/18 08/12/18 12:43 14:23 Temperature 36.6 C Heart Rate 88 57 L Respiratory 24 24 Rate Blood Pressure 205/88 H O2 Saturation 100 100 Oxygen O2 Source Room air - EKG (time done) 1248 Rate: Rate (enter#) (57) Rhythm: NSR, LAE [place]: LAD Intervals: Normal [place], Prolonged QT QRS: Normal Ischemia: No: ST elevation c/w ischemia Computer interpretation: Agree with computer - Labs Labs: Laboratory Tests 08/12/18 08/12/18 08/12/18 13:55 13:55 13:55 WBC 15.5 H RBC 4.19 L Hgb 12.4 Hct 36.1 L MCV 86.2 MCH 29.6 MCHC 34.3 RDW 12.0 Plt Count 197 MPV 12.9 H Neut # (Auto) 13.2 H Lymph # (Auto) 1.4 L [place] # (Auto) 0.6 Eos # (Auto) 0.0 Baso # (Auto) 0.1 Absolute Nucleated RBC 0.00 Nucleated RBC % 0.0 PT 12.5 INR 1.1 VBG pH VBG pCO2 VBG pO2 VBG HCO3 VBG Total CO2 VBG O2 Saturation VBG Base Excess Sodium 132 L Potassium 3.9 Chloride 93 L Carbon Dioxide 17 L Anion Gap 22.0 H BUN 42 H Creatinine 1.5 H Estimated GFR (MDRD) 35 L Glucose 725 H* Lactic Acid Calcium 10.0 Total Bilirubin 1.5 H AST 29 ALT 38 Alkaline Phosphatase 84 Total Creatine Kinase 123 CK-MB (CK-2) Troponin I Total Protein 8.0 Albumin 3.9 Globulin 4.1 Albumin/Globulin Ratio 1.0 Lipase 28 Serum Ketones SMALL H 08/12/18 08/12/18 08/12/18 13:55 13:55 13:55 WBC RBC Hgb Hct MCV MCH MCHC RDW Plt Count MPV Neut # (Auto) Lymph # (Auto) [place] # (Auto) Eos # (Auto) Baso # (Auto) Absolute Nucleated RBC Nucleated RBC % PT INR VBG pH 7.491 H VBG pCO2 25.5 L VBG pO2 47.6 H VBG HCO3 19.0 L VBG Total CO2 19.8 L VBG O2 Saturation 86.3 H VBG Base Excess -2.7 L Sodium Potassium Chloride Carbon Dioxide Anion Gap BUN Creatinine Estimated GFR (MDRD) Glucose Lactic Acid 3.1 H* Calcium Total Bilirubin AST ALT Alkaline Phosphatase Total Creatine Kinase CK-MB (CK-2) 2.3 Troponin I < 0.04 Total Protein Albumin Globulin Albumin/Globulin Ratio Lipase Serum Ketones PD MEDICAL DECISION MAKING - ED course ED course: This is a 62-year-old woman with late onset type 1 diabetes who presents with vomiting and abdominal pain which also was associated with taking the lower insulin dose because of poor access to primary care and daily marijuana use potentially causing some episode of cannabinoid hyperemesis who now presents with significantly uncontrolled blood sugars and mild acute renal insufficiency which is treated with insulin and fluids. She also needed some calming down with some Ativan and antiemetics. Departure - Departure Disposition: ED Place in Observation Clinical Impression: Dehydration Diabetes mellitus with hyperglycemia, with long-term current use of insulin Qualifiers: Diabetes mellitus type: other specified (including MELANY) Qualified Code(s): E13.65 - Other specified diabetes mellitus with hyperglycemia; Z79.4 - care home (current) use of insulin ARF (acute renal failure) Qualifiers: Acute renal failure type: unspecified Qualified Code(s): N17.9 - Acute kidney failure, unspecified Condition: Serious
[2018-08-12 14:12] LABS: KETONES, SERUM (ACETEST) SMALL (NEGATIVE); VBG BASE EXCESS -2.7 mmol/L (-2 - +2); VBG PCO2 25.5 mmHg (41-51); VBG PH 7.491 (7.31-7.41); VBG PO2 47.6 mmHg (25-47); VBG TOTAL CO2 19.8 mmol/L (24-29)
[2018-08-12 14:14] LABS: INR 1.1 (0.8-1.2); PT - PROTHROMBIN TIME 12.5 secs (9.9-12.6)
[2018-08-12 14:18] LABS: ALBUMIN 3.9 g/dL (3.2-5.5); ALKALINE PHOSPHATASE 84 IU/L (42-121); ALT ALANINE AMINOTRANSFERASE 38 IU/L (10-60); AST ASPARTATE AMINOTRANSFERASE 29 IU/L (10-42); BILIRUBIN,TOTAL 1.5 mg/dL (0.2-1.0); BUN - BLOOD UREA NITROGEN 42 mg/dL (6-20); CARBON DIOXIDE - CO2 17 mmol/L (21-32); CHLORIDE 93 mmol/L (101-111); CK- CREATINE KINASE 123 IU/L (22-269); CREATININE 1.5 mg/dL (0.4-1.0); GFR - MDRD 35 (>89); LIPASE 28 U/L (22-51); SODIUM 132 mmol/L (135-145)
[2018-08-12 14:20] LABS: GLUCOSE 725 mg/dL (70-100)
[2018-08-12 14:22] LABS: TROPONIN I < 0.04 ng/mL (<0.49)
[2018-08-12 14:24] LABS: CREATINE KINASE MB 2.3 ng/mL (0.6-6.3)
[2018-08-12] MEDS ORDERED: ONDANSETRON 4 MG/2 ML VIAL IVP STA (14:28)
[2018-08-12] MEDS ORDERED: LORazepam 2 MG/ML VIAL IVP STA (14:28)
[2018-08-12] MEDS ORDERED: MORPHINE 10 MG/ML VIAL IVP STA (14:28)
[2018-08-12] MEDS ORDERED: INSULIN REGULAR HUMAN 100 UNIT/1 ML 10 ML MDV IVP STA (14:30)
[2018-08-12] MEDS ORDERED: oxyCODONE 5 MG TABLET PO PRN (14:53)
[2018-08-12] MEDS ORDERED: SODIUM CHLORIDE FLUSH 0.9% 10 ML SYRINGE IVP PRN (14:53)
[2018-08-12] MEDS ORDERED: ACETAMINOPHEN 325 MG TABLET PO PRN (14:53)
[2018-08-12] MEDS ORDERED: ONDANSETRON ODT 4 MG TABLET TL PRN (14:53)
[2018-08-12] MEDS ORDERED: INSULIN REGULAR HUMAN 100 UNIT in SODIUM CHLORIDE 0.9% 100ML 99 ML IV SCH (15:00)
[2018-08-12] MEDS ORDERED: NS W/20 MEQ KCL 1,000 ML IV SCH ×2 (15:00→19:23)
[2018-08-12] MEDS: NS W/40 MEQ KCL 1,000 ML IV SCH ×2 (15:45→21:12)
[2018-08-12 16:12] LABS: CALCIUM 9.5 mg/dL (8.5-10.3); CREATININE 1.4 mg/dL (0.4-1.0); MAGNESIUM 1.8 mg/dL (1.7-2.8)
[2018-08-12 16:15] LABS: HB2 TOTAL 12.7 g/dL; HEMOGLOBIN A1C 1.8 g/dL; HEMOGLOBIN A1C % 15.1 % (4.6-6.2)
[2018-08-12] MEDS: INSULIN REGULAR HUMAN 100 UNIT in SODIUM CHLORIDE 0.9% 100ML 99 ML IV SCH (16:45)
[2018-08-12 17:06] LABS: CALCIUM 9.5 mg/dL (8.5-10.3); CREATININE 1.4 mg/dL (0.4-1.0); MAGNESIUM 1.7 mg/dL (1.7-2.8)
[2018-08-12] MEDS: SODIUM CHLORIDE FLUSH 0.9% 10 ML SYRINGE IVP SCH (17:49)
[2018-08-12 18:23] LABS: CALCIUM 9.5 mg/dL (8.5-10.3); CREATININE 1.3 mg/dL (0.4-1.0); MAGNESIUM 1.6 mg/dL (1.7-2.8)
[2018-08-12 19:31] LABS: BILIRUBIN,URINE NEGATIVE (NEGATIVE); GLUCOSE, URINE (UA) >=1000 mg/dL (NEGATIVE); KETONES,URINE (UA) 15 mg/dL (NEGATIVE); LEUKOCYTE ESTERASE, URINE NEGATIVE (NEGATIVE); MUDS CUTOFF CONCENTRATIONS CUTOFF CONC BELOW:; NITRITE,URINE NEGATIVE (NEGATIVE); OCCULT BLOOD,URINE TRACE-LYSE (NEGATIVE); PROTEIN,URINE NEGATIVE (NEGATIVE); UROBILINOGEN,URINE 0.2 (NORMAL) E.U./dL (NORMAL)
[2018-08-12 19:32] LABS: CLARITY,URINE CLEAR (CLEAR)
[2018-08-12] MEDS: ONDANSETRON 4 MG/2 ML VIAL IVP PRN (20:00)
[2018-08-12 20:19] LABS: AMPHETAMINE SCREEN,URINE NEGATIVE (NEGATIVE); BENZODIAZEPINES SCREEN, URINE NEGATIVE (NEGATIVE); COCAINE SCREEN URINE NEGATIVE (NEGATIVE); HCG UR QUAL NEGATIVE; METHAMPHETAMINES SCREEN, URINE NEGATIVE (NEGATIVE); OPIATE SCREEN, URINE POSITIVE (NEGATIVE); TRICYCLIC ANTIDEPRESSANT,URINE NEGATIVE (NEGATIVE)
[2018-08-12 20:20] LABS: METHADONE SCREEN, URINE NEGATIVE (NEGATIVE); OXYCODONE SCREEN, URINE NEGATIVE (NEGATIVE); PROPOXYPHENE SCREEN, URINE NEGATIVE (NEGATIVE)
[2018-08-12] MEDS: LORazepam 1 MG TABLET PO PRN (20:22)
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
[2018-08-12 21:40] LABS: VBG BASE EXCESS 0.6 mmol/L (-2 - +2); VBG PCO2 41.8 mmHg (41-51); VBG PH 7.402 (7.31-7.41); VBG PO2 39.9 mmHg (25-47); VBG TOTAL CO2 26.7 mmol/L (24-29)
[2018-08-12 21:45] LABS: CALCIUM 9.4 mg/dL (8.5-10.3); CREATININE 1.2 mg/dL (0.4-1.0); MAGNESIUM 1.7 mg/dL (1.7-2.8)
[2018-08-12 23:02] LABS: CALCIUM 9.3 mg/dL (8.5-10.3); CREATININE 1.2 mg/dL (0.4-1.0); MAGNESIUM 1.7 mg/dL (1.7-2.8)
[2018-08-12] MEDS: D5NS W/20 MEQ KCL 1,000 ML IV SCH (23:40)
[2018-08-12] MEDS ORDERED: KCL IV SCH (23:45)
[2018-08-12] MEDS ORDERED: D5NS W IV SCH (23:45)
[2018-08-13] MEDS: INSULIN GLARGINE 300 UNIT/3 ML PEN SUBQ SCH ×2 (00:02→09:20)
[2018-08-13 01:17] LABS: CALCIUM 9.2 mg/dL (8.5-10.3); CREATININE 1.2 mg/dL (0.4-1.0); MAGNESIUM 1.9 mg/dL (1.7-2.8)
[2018-08-13 04:48] LABS: BASOPHILS % (AUTO) 0.2 %; LYMPHOCYTES # (AUTO) 2.6 10^3/uL (1.5-3.5); LYMPHOCYTES % (AUTO) 15.7 %; MEAN CORPUSCULAR HEMOGLOBIN 29.8 pg (27.0-31.0); MEAN CORPUSCULAR VOLUME 87.8 fL (81.0-99.0); MEAN PLATELET VOLUME 12.9 fL (7.9-10.8); MONOCYTES # (AUTO) 1.2 10^3/uL (0.0-1.0); MONOCYTES % (AUTO) 7.2 %; NEUTROPHILS # (AUTO) 12.3 10^3/uL (1.5-6.6); NEUTROPHILS % (AUTO) 75.7 %; PLT - PLATELET COUNT 171 10^3/uL (130-450); RED BLOOD COUNT 3.69 10^6/uL (4.20-5.40); RED CELL DISTRIBUTION WIDTH 12.6 % (12.0-15.0); WHITE BLOOD COUNT 16.3 x10^3/uL (4.8-10.8)
[2018-08-13 04:50] LABS: VBG BASE EXCESS -0.4 mmol/L (-2 - +2); VBG PCO2 31.8 mmHg (41-51); VBG PH 7.469 (7.31-7.41); VBG PO2 141.6 mmHg (25-47); VBG TOTAL CO2 23.5 mmol/L (24-29)
[2018-08-13 04:55] LABS: KETONES, SERUM (ACETEST) NEGATIVE (NEGATIVE)
[2018-08-13 05:05] LABS: BUN - BLOOD UREA NITROGEN 32 mg/dL (6-20); CALCIUM 8.9 mg/dL (8.5-10.3); CARBON DIOXIDE - CO2 23 mmol/L (21-32); CHLORIDE 110 mmol/L (101-111); CREATININE 1.1 mg/dL (0.4-1.0); GFR - MDRD 50 (>89); GLUCOSE 287 mg/dL (70-100); PHOSPHORUS 4.1 mg/dL (2.5-4.6); SODIUM 144 mmol/L (135-145)
[2018-08-13] MEDS: SODIUM CHLORIDE FLUSH 0.9% 10 ML SYRINGE IVP SCH ×2 (05:10→09:20)
[2018-08-13] MEDS: D5NS W/20 MEQ KCL 1,000 ML IV SCH (07:43)
[2018-08-13] MEDS: LORazepam 1 MG TABLET PO PRN (09:19)
[2018-08-13] MEDS: INSULIN ASPART 300 UNIT/3 ML PEN SUBQ SCH ×2 (09:19→12:20)
[2018-08-13] MEDS: ONDANSETRON 4 MG/2 ML VIAL IVP PRN (09:19)
[2018-08-13] MEDS ORDERED: HALOPERIDOL 5 MG/ML VIAL IVP ONE (11:49)
[2018-08-13] MEDS ORDERED: PROCHLORPERAZINE 10 MG/2 ML VIAL IVP PRN (11:50)
[2018-08-13] MEDS ORDERED: SODIUM CHLORIDE 0.9% 1,000 ML IV SCH ×2 (12:00→13:35)
[2018-08-13] MEDS ORDERED: INSULIN ASPART 300 UNIT/3 ML PEN SUBQ ONE (12:16)
[2018-08-13] MEDS: INSULIN REGULAR HUMAN 100 UNIT in SODIUM CHLORIDE 0.9% 100ML 99 ML IV SCH (12:21)
[2018-08-13] MEDS ORDERED: HEPARIN BOLUS PRN PER PROTOCOL IVP (14:00)
[2018-08-13] MEDS ORDERED: HEPARIN CARDIAC INITIAL BOLUS IVP ONE (14:00)
[2018-08-13] MEDS ORDERED: HEPARIN DRIP CARDIAC @ 12 UNITS/KG/HR IV SCH (14:00)
--- NOTE | 2018-08-13 14:11 | XRAY Report ---
Reason: chest tightness Procedure Date: 08/13/2018 Accession Number: [id number] / [id number] Procedure: XR - Chest 1 View X-Ray CPT Code: 31505 FULL RESULT: EXAM: CHEST RADIOGRAPHY EXAM DATE: 08/13/2018 12:23 PM. CLINICAL HISTORY: Chest pain. COMPARISON: CHEST 1 VIEW 11/11/2017 7:27 AM. TECHNIQUE: 1 view. FINDINGS: Lungs/Pleura: No focal opacities evident. No pleural effusion. No pneumothorax. Mediastinum: Heart and mediastinal contours are notable for aortic calcification. Other: None. IMPRESSION: No acute cardiopulmonary abnormality demonstrated. RADIA
[2018-08-13 14:19] LABS: HGB - HEMOGLOBIN 11.4 g/dL (12.0-16.0); MEAN CORPUSCULAR HEMOGLOBIN 29.7 pg (27.0-31.0); MEAN CORPUSCULAR HGB CONC 33.2 g/dL (32.0-36.0); MEAN CORPUSCULAR VOLUME 89.3 fL (81.0-99.0); MEAN PLATELET VOLUME 12.9 fL (7.9-10.8); RED BLOOD COUNT 3.84 10^6/uL (4.20-5.40); RED CELL DISTRIBUTION WIDTH 13.1 % (12.0-15.0); WHITE BLOOD COUNT 15.9 x10^3/uL (4.8-10.8)
[2018-08-13 15:04] VITALS: BP 118/63
--- NOTE | 2018-08-13 19:27 | Discharge Plan ---
Discharge Plan Problem Reviewed?: Yes Disposition: 02 Transfer Acute Care Hosp Condition: Serious No Smoking: If you smoke, Please STOP! Call for help. Follow-up with: Michaela Garsia ARNP [Primary Care Provider] -
--- NOTE | 2018-08-13 21:46 | DISCHARGE SUMMARY ---
Physician: Audrey Seymour MD DATE OF ADMISSION: 08/12/2018 DATE OF DISCHARGE: 08/13/2018 DISCHARGE DIAGNOSES 1. Ame-GL-veeybwzvq myocardial infarction. 2. Diabetic ketoacidosis, type 1, uncontrolled. 3. Noncompliance with diabetes treatment. 4. Lactic acidosis. 5. Severe dehydration. 6. Chest pain. 7. Hypertension. 8. Acute kidney injury, superimposed on chronic kidney disease. 9. Chronic atrial fibrillation history, currently sinus. 10. Severe anxiety. MEDICATIONS From home were: 1. Eliquis 5 p.o. b.i.d. 2. Aspirin 81 mg daily. 3. Chlorthalidone 25 mg daily. 4. Flonase nasal spray. 5. Hydroxyzine 25 mg capsule every 4 hours as needed. 6. Lantus 30 units subcutaneous b.i.d., not being used on a regular basis because running out of medicine. 7. Insulin Lispro 6 units subcutaneous t.i.d., not been using on a regular basis because running out of insulin. 8. Lisinopril 40 mg daily. 9. Metoprolol XL100 mg daily. 10. Protonix 40 mg daily. 11. Paxil 40 mg a day. During the stay, her medications were Tylenol, Haldol once, insulin, NovoLog, Lantus Solo Star, regular insulin drip, Ativan p.r.n., Zofran p.r.n., potassium riders, aggressive normal saline resuscitation. PRINCIPAL PROCEDURES 1. Chest x-ray with no acute cardiopulmonary process. 2. Troponin #1 was 0.04., #2 was 0.23, # 4 was 1.21. 3. Urine drug screen positive for opiates, cannabinoids, small ketones. 4. Urine hCG negative. HOSPITAL COURSE: This is an unfortunate female who at the age of 62 is 92 kilograms and 5 feet 4 inches tall. She was diagnosed with type 1 diabetes mellitus in association with an NSTEMI back in the fall of 2017. She already had a mild peripheral neuropathy that has progressed to very dense peripheral neuropathy, especially around her feet. She was then hospitalized again in the fall of 2017 with a STEMI and another episode of diabetic ketoacidosis type 1. This patient seems to have a high level of anxiety and very, very poor coping. When we speak to her about her conditions, an attempt to educate her about the severity of her illness and stress the importance of compliance with treatment regime, she becomes histrionic, sobbing. She states that she cannot bear to listen to this type of news and only wants us to approach her when she has "achieved her happy place." Spouse seems to be very supportive and pats her on the back, and rubs it, and uses a baby tone of voice to try and support her and calls her "Pagie. " He tells us that "Pagie" does not deal well with bad news and gets very anxious and cannot process. She returned to our hospital with history of nausea, vomiting. Some diarrhea. She was found to be in diabetic ketoacidosis type 1 in the emergency room with only a small amount of ketones, but a high level of glucose at 750. She was placed on an IV insulin drip after being put in the unit. Also received aggressive electrolyte replacement. Aggressive fluid resuscitation. Initial troponins were negative. As the observation stay went on, the patient stated that she was still having more anxiety, more chest tightness. As such, we trended her troponins and troponin finally bumped to 1.21. She is felt to be having an NSTEMI with the EKG showing normal sinus rhythm. No acute ST-T wave changes. Occasionally, she did have bigeminy on telemetry. It should be noted that with her first NSTEMI, her ejection fraction returned to normal. With her second NSTEMI, an echocardiogram showed an ejection fraction down to 30%. She has not had a followup echocardiogram. She has not been compliant with a followup cardiology visit that she can remember. She was seen by endocrinology the first year she was diagnosed, and they note that she was noncompliant with the use of medications. She states that she has not been able to follow up with endocrinology for quite some time. She was last seen in the PCP office in 12/2017 and then 04/2018. She feels like she has not had time to get into the office. Her primary care provider's office explained to her that they would not be refilling her medication if she did not come in. As such, she states she started running out of insulin and started spacing out her therapy in order to continue to treat herself. During her stay, she kept putting her fingers down her throat to make herself vomit. She states that she was nauseated, her abdomen did not feel good, and inducing emesis with her fingers down her throat made her feel better. This was in spite of numerous interventions on the part of RN and myself, to ask her to please stop doing that. With the diagnosis of the NSTEMI, it was felt prudent to transfer her to a higher level of care to a critical access hospital. She is on heparin drip. By now her lactic acidosis had resolved, her dehydration had resolved, hypertension was intermittent. When at rest and emotionally stable, blood pressure would go down into the 120s. When agitated and crying, blood pressure would go as high as 179. At one point, she was 213/94. Her chronic atrial fibrillation was not in evidence. She is on Eliquis for this, but she is in normal sinus rhythm. It was strongly suggested to her and her significant other that the patient seek help with counseling, or mental health professional to help control her anxiety. Her level of anxiety seems to appear to be interfering with her ability to successfully manage her disease status and comorbidities. Dr. Jonnathan Cho accepted the patient in transfer to [facility]. Dr. Childress will be the showroom consultant that sees her. PHYSICAL EXAMINATION VITAL SIGNS: After Haldol and Ativan, the temperature is now 37.1, pulse of 70, blood pressure 118/63, respirations 20, 98% on 2 liters. GENERAL: She is much much calmer. Sleeping more comfortably, but eyes open when you walk in the room to address her and she answers questions. Significant other is at the bedside. NECK: Supple. LUNGS: Clear to auscultation and percussion. She has a regular rate and rhythm. ABDOMEN: With generalized achiness, but normal bowel sounds, nontender. She complains of bloating and gas. She is able to get up out of bed, go to the bathroom with standby assist. Heparin drip was started. The patient has already been on her aspirin, but did not receive an aspirin during this stay. TD: 08/13/2018 19:16 MTDD
== END 2018-08-13 16:28 | disposition short-term general hospital (02) ==
LOC: ED 12:32 → ICU 14:53
PROVIDERS: ADMIT Specialist; ATTEND Specialist
DX: E10.10 Type 1 diabetes mellitus with ketoacidosis without coma (principal); T38.3X6A Underdosing of insulin and oral hypoglycemic [antidiabetic] drugs, initial encounter; Z91.128 Patient's intentional underdosing of medication regimen for other reason; N17.9 Acute kidney failure, unspecified; E86.0 Dehydration; I21.4 Non-ST elevation (NSTEMI) myocardial infarction; E10.22 Type 1 diabetes mellitus with diabetic chronic kidney disease; I12.9 Hypertensive chronic kidney disease with stage 1 through stage 4 chronic kidney disease, or unspecified chronic kidney disease; N18.9 Chronic kidney disease, unspecified; E10.42 Type 1 diabetes mellitus with diabetic polyneuropathy; E10.39 Type 1 diabetes mellitus with other diabetic ophthalmic complication; F41.1 Generalized anxiety disorder; F34.1 Dysthymic disorder; E66.01 Morbid (severe) obesity due to excess calories; I25.111 Atherosclerotic heart disease of native coronary artery with angina pectoris with documented spasm; I48.2 Chronic atrial fibrillation; I25.2 Old myocardial infarction; Z79.01 Long term (current) use of anticoagulants; Z79.899 Other long term (current) drug therapy; Z79.82 Long term (current) use of aspirin; Z91.19 Patient's noncompliance with other medical treatment and regimen; Z68.35 Body mass index [BMI] 35.0-35.9, adult; Z87.891 Personal history of nicotine dependence
CPT/HCPCS: 36415; 71045; 80048; 80053; 80306; 81003; 81025; 82009; 82550; 82553; 82803; 82947; 83036; 83605; 83690; 83735; 83930; 84100; 84478; 84484; 85025; 85027; 85520; 85610; 87150; 93005; 96361; 96365; 96366; 96372; 96375; 96376; 99284; A9270; G0378; J1815; J2060; J8499; Q0162; 81001; 87086

== ENCOUNTER 2020-01-17 08:00 | Outpatient (CLI) | payer MEDICAID | END 2020-01-17 23:59 | disposition home or self-care (01) | LOC: LAB.R 08:00 | PROVIDERS: ATTEND Physician Assistant Medical | DX: R30.0 Dysuria (principal) | CPT/HCPCS: 87086 ==

== ENCOUNTER 2020-07-14 11:08 | Outpatient (CLI) | payer MEDICAID | END 2020-07-14 11:09 | disposition critical access hospital (66) | LOC: EMS 11:08 | DX: R00.2 Palpitations (principal); R10.9 Unspecified abdominal pain; R11.2 Nausea with vomiting, unspecified | CPT/HCPCS: A0425; A0429; A0999 ==

== ENCOUNTER 2020-07-14 11:32 | Emergency (ER) | payer MEDICAID ==
[2020-07-14] MEDS ORDERED: SODIUM CHLORIDE 0.9% 1,000 ML IV STA ×2 (11:49→13:48)
[2020-07-14] MEDS ORDERED: ONDANSETRON 4 MG/2 ML VIAL IVP STA (11:51)
[2020-07-14] MEDS ORDERED: HYDROmorphone 1 MG/ML CARPUJECT IVP STA ×3 (11:51→15:04)
[2020-07-14 12:01] LABS: BASOPHILS # (AUTO) 0.1 10^3/uL (0.0-0.1); BASOPHILS % (AUTO) 0.3 %; EOSINOPHILS % (AUTO) 0.1 %; HCT - HEMATOCRIT 33.9 % (37.0-47.0); HGB - HEMOGLOBIN 11.5 g/dL (12.0-16.0); LYMPHOCYTES # (AUTO) 2.1 10^3/uL (1.5-3.5); MEAN CORPUSCULAR HEMOGLOBIN 28.6 pg (27.0-31.0); MEAN CORPUSCULAR HGB CONC 33.9 g/dL (32.0-36.0); MEAN CORPUSCULAR VOLUME 84.3 fL (81.0-99.0); MEAN PLATELET VOLUME 11.6 fL (7.9-10.8); MONOCYTES # (AUTO) 1.1 10^3/uL (0.0-1.0); MONOCYTES % (AUTO) 5.5 %; NEUTROPHILS # (AUTO) 15.9 10^3/uL (1.5-6.6); NEUTROPHILS % (AUTO) 81.9 %; PLT - PLATELET COUNT 261 10^3/uL (130-450); RED BLOOD COUNT 4.02 10^6/uL (4.20-5.40); RED CELL DISTRIBUTION WIDTH 12.4 % (12.0-15.0); WHITE BLOOD COUNT 19.3 x10^3/uL (4.8-10.8)
[2020-07-14 12:11] LABS: INR 1.3 (0.8-1.2); PT - PROTHROMBIN TIME 14.8 secs (9.9-12.6)
[2020-07-14 12:17] LABS: ALBUMIN 3.2 g/dL (3.2-5.5); ALBUMIN/GLOBULIN RATIO 0.8 (1.0-2.2); BILIRUBIN,TOTAL 1.5 mg/dL (0.2-1.0); CALCIUM 8.9 mg/dL (8.5-10.3); CREATININE 1.9 mg/dL (0.4-1.0); POTASSIUM 2.7 mmol/L (3.5-5.0); TOTAL PROTEIN 7.2 g/dL (6.7-8.2)
--- NOTE | 2020-07-14 12:19 | XRAY Report ---
PROCEDURE: Chest 1 View X-Ray INDICATIONS: Chest Pain TECHNIQUE: One view of the chest was acquired. COMPARISON: 08/13/2018, 11/11/2017, 11/30/2016 FINDINGS: Surgical changes and devices: None. Lungs and pleura: No pleural effusions or pneumothorax. Lungs are clear. Mediastinum: Mediastinal contours appear normal. Heart size is at the upper limits of normal. Bones and chest wall: No suspicious bony lesions. Age-appropriate degenerative changes are seen. Mi ld levoconvex scoliotic curvature is seen. Overlying soft tissues appear unremarkable. IMPRESSION: Portable chest within normal limits for age. Reviewed by: Adolfo Jones MD on 07/14/2020 11:18 AM RUMA Approved by: Adolfo Jones MD on 07/14/2020 11:18 AM RUMA Station ID: [id number]
--- OUTSIDE RECORDS SUMMARY | 2020-07-14 12:19 | EXTERNAL MEDICAL SUMMARY RPT | Continuity of Care Document ---
:1955 Demographics Phone Unavailable Preferred Language Unknown Marital Status Unknown Voodoo Affiliation Unknown Race Unknown Ethnic Group Unknown Author Organization [facility] Address [address] [phone] Phone Allergies Encounters Medications Problems Results
--- NOTE | 2020-07-14 13:06 | CT Report ---
PROCEDURE: Abdomen/Pelvis WO INDICATIONS: L flank pain TECHNIQUE: Noncontrast 5 mm thick sections acquired from the diaphragms to the symphysis. 5 mm coronal and sagi ttal reformats were then performed. For radiation dose reduction, the following was used: automated exposure control, adjustment of mA and/or kV according to patient size. COMPARISON: Correlation is made with chest radiograph, 07/14/2020 FINDINGS: Image quality: Excellent. ABDOMEN: Lung bases: Lung bases are clear. Heart size is normal. Solid organs: Liver and spleen are normal in size. Increased liver echogenicity is seen. This is no nspecific, yet it is most commonly attributed to fatty infiltration. Gallbladder wall does not appear thickened. Pancreas is normal in contours. No adrenal nodules. There is an obstructing stone seen within the left proximal ureter, just beyond the ureteropelvic epi ction, as on series 3 image 67 and on series 6 image 48 that measures 11 mm craniocaudally. There is associated moderate left-sided hydroureter and hydronephrosis, perinephric fat stranding. No nonobstructing stones are seen on either side. No right-sided hydronephrosis. Water density left r enal cysts are seen. Peritoneum and bowel: Unenhanced bowel loops demonstrate normal wall thickness and caliber. No free fluid or air. Diverticulosis can be seen, without lynne findings of active diverticulitis. Nodes and vessels: No retroperitoneal or mesenteric adenopathy by size criteria. Aorta and inferior vena cava are normal in caliber. Miscellaneous: No ventral hernias. PELVIS: Genitourinary: Bladder wall thickness is normal. The uterus demonstrates an unremarkable appearance for age. No adnexal masses are seen.Miscellaneous: No inguinal hernias or adenopathy. Bones: No suspicious bony lesions. No vertebral body compression fractures. Age-appropriate degene rative changes are seen. IMPRESSION: 11 mm obstructing stone seen within the left proximal ureter, with associated left-sided hydroureter, hydronephrosis, and perinephric fat stranding. No nonobstructing kidney stones are seen. Incidental note is made of: Fatty liver infiltration Water density left renal cysts Diverticulosis, without diverticulitis. Reviewed by: Adolfo Jones MD on 07/14/2020 12:04 PM AKDT Approved by: Adolfo Jones MD on 07/14/2020 12:04 PM RUMA Station ID: [id number]
[2020-07-14 14:30] LABS: BILIRUBIN,URINE NEGATIVE (NEGATIVE); GLUCOSE, URINE (UA) >=1000 mg/dL (NEGATIVE); KETONES,URINE (UA) 40 mg/dL (NEGATIVE); LEUKOCYTE ESTERASE, URINE NEGATIVE (NEGATIVE); NITRITE,URINE NEGATIVE (NEGATIVE); OCCULT BLOOD,URINE TRACE-INTA (NEGATIVE); PH,URINE 5.5 PH (5.0-7.5); PROTEIN,URINE TRACE mg/dL (NEGATIVE); UROBILINOGEN,URINE 0.2 (NORMAL) E.U./dL (NORMAL)
[2020-07-14 14:32] LABS: CLARITY,URINE HAZY (CLEAR)
[2020-07-14] MEDS ORDERED: TAMSULOSIN 0.4 MG CAPSULE PO STA (14:46)
[2020-07-14 14:49] LABS: AMORPHOUS SEDIMENT,UR Few /LPF; BACTERIA,URINE Many /HPF (None Seen); RBC,URINE 0-5 /HPF (0-5); SQUAMOUS EPITHELIAL CELL,UR MANY Squamous (<= Few)
--- NOTE | 2020-07-14 14:49 | ED Physician Documentation ---
History of Present Illness - Stated complaint Stated Complaint: CP - Chief complaint Chief Complaint: Cardiac - History obtained from History obtained from: Patient - Additonal information Additional information: Patient comes emergency department chief complaint of left flank pain that started a few hours ago. She states that she has had some nausea and vomiting, as well. Patient denies any dysuria. No shortness of breath or cough. She states the pain feels little bit like it goes into her chest but is mostly in her flank and mid abdomen. No fevers or chills. No gross hematuria. No other complaints at this time. Patient has a history of coronary artery disease and has had both non-ST elevation [place] and a STEMI. Review of Systems Ten Systems: 10 systems reviewed and negative Constitutional: reports: Reviewed and negative Eyes: reports: Reviewed and negative Ears: reports: Reviewed and negative Nose: reports: Reviewed and negative Throat: reports: Reviewed and negative Cardiac: reports: Reviewed and negative Respiratory: reports: Reviewed and negative GI: reports: Abdominal Pain, Nausea, Vomiting : reports: Reviewed and negative Skin: reports: Reviewed and negative Musculoskeletal: reports: Reviewed and negative Neurologic: reports: Reviewed and negative Psychiatric: reports: Reviewed and negative Endocrine: reports: Reviewed and negative Immunocompromised: reports: Reviewed and negative PD PAST MEDICAL HISTORY - Past Medical History Cardiovascular: Hypertension, [place], Arrhythmia Respiratory: None Endocrine/Autoimmune: Type 2 diabetes GI: None 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 : None HEENT: None Psych: Anxiety Musculoskeletal: None Derm: None - Past Surgical History Past Surgical History: Yes /HEALTHCARE CORPORATE ACCOUNT DIRECTOR: section HEENT: Tonsil/Adenoidectomy - Present Medications Home Medications: Ambulatory Orders Medication Instructions Recorded Confirmed Insulin Glargine [Lantus Solostar] 30 units SUBQ BID 05/28/17 07/14/20 Insulin Lispro [Humalog] 6 units SUBQ TIDWM 05/28/17 07/14/20 lisinopriL [Lisinopril] 40 mg PO DAILY 05/28/17 07/14/20 hydrOXYzine pamoate [Hydroxyzine 1 cap PO Q4H PRN 11/11/17 07/14/20 Pamoate] Apixaban [Eliquis] 5 mg PO BID 08/12/18 07/14/20 Chlorthalidone 25 mg PO DAILY 08/12/18 07/14/20 Fluticasone [Flonase] 1 sprays NEGRITA BID 08/12/18 07/14/20 Metoprolol Succinate [Toprol Xl] 100 mg PO DAILY 08/12/18 07/14/20 PARoxetine HCL [Paroxetine HCl] 40 mg PO DAILY 08/12/18 07/14/20 Pantoprazole Sodium [Protonix] 40 mg PO DAILY 08/12/18 07/14/20 Ondansetron Odt [Zofran Odt] 4 mg TL Q6H PRN #10 tablet 07/14/20 Tamsulosin [Flomax] 0.4 mg PO DAILY #7 07/14/20 oxyCODONE/ACET 5/325 [Percocet 5 1 each PO Q4-6H #14 tablet 07/14/20 mg/325 mg] - Allergies Allergies/Adverse Reactions: Allergies Allergy/AdvReac Type Severity Reaction Status Date / Time No Known Drug Allergies Allergy Verified 07/14/20 11:50 - Social History Does the pt smoke?: No Smoking Status: Former smoker Does the pt drink ETOH?: Yes Does the pt have substance abuse?: Yes Substance Use and Type: Marijuana - POLST Patient has POLST: No PD ED PE NORMAL - Vitals Vital signs reviewed: Yes - General General: Alert and oriented X 3, Well developed/nourished, Other (Patient appears to be in pain and is in some distress from this.) - HEENT HEENT: Atraumatic, PERRL, EOMI, Moist mucous membranes - Neck Neck: Supple, no meningeal sign - Cardiac Cardiac: RRR, No murmur - Respiratory Respiratory: No respiratory distress, Clear bilaterally - Abdomen Abdomen: Soft, Non distended, Other (Moderate left flank tenderness extending to CVA. No rebound or guarding.) - Back Back: Other (Left CVA, mild) - Derm Derm: Normal color, Warm and dry, No rash - Extremities Extremities: No deformity, No edema, No calf tenderness / cord - Neuro Neuro: Alert and oriented X 3, vocational aide 2-12 intact, Normal speech, Other (Grossly normal) - Psych Psych: Normal mood, Normal affect Results - Vitals Vitals: Vital Signs - 24 hr 07/14/20 07/14/20 07/14/20 11:38 12:15 13:01 Temperature 36.4 C L Heart Rate 82 75 71 Respiratory 26 H 23 19 Rate Blood Pressure 193/109 H 157/120 H O2 Saturation 100 100 07/14/20 07/14/20 07/14/20 14:49 15:23 16:02 Temperature 36.2 C L 36.7 C Heart Rate 69 68 69 Respiratory 9 L 17 14 Rate Blood Pressure 107/64 104/69 138/77 H O2 Saturation 93 94 96 Oxygen O2 Source Room air - Labs Labs: Laboratory Tests 07/14/20 07/14/20 07/14/20 11:55 11:55 11:55 WBC 19.3 H RBC 4.02 L Hgb 11.5 L Hct 33.9 L MCV 84.3 MCH 28.6 MCHC 33.9 RDW 12.4 Plt Count 261 MPV 11.6 H Neut # (Auto) 15.9 H Lymph # (Auto) 2.1 [place] # (Auto) 1.1 H Eos # (Auto) 0.0 Baso # (Auto) 0.1 Absolute Nucleated RBC 0.00 Nucleated RBC % 0.0 PT 14.8 H INR 1.3 H Sodium 132 L Potassium 2.7 L Chloride 92 L Carbon Dioxide 20 L Anion Gap 20.0 H BUN 35 H Creatinine 1.9 H Estimated GFR (MDRD) 27 L Glucose 392 H Calcium 8.9 Total Bilirubin 1.5 H AST 18 ALT 23 Alkaline Phosphatase 80 Troponin I High Sens Total Protein 7.2 Albumin 3.2 Globulin 4.0 Albumin/Globulin Ratio 0.8 L Lipase 27 Urine Color Urine Clarity Urine pH Ur Specific [place] Urine Protein Urine Glucose (UA) Urine Ketones Urine Occult Blood Urine Nitrite Urine Bilirubin Urine Urobilinogen Ur Leukocyte Esterase Urine RBC Urine WBC Ur Squamous Epith Cells Amorphous Sediment Urine Bacteria Ur Microscopic Review Urine Culture Comments 07/14/20 07/14/20 11:55 13:50 WBC RBC Hgb Hct MCV MCH MCHC RDW Plt Count MPV Neut # (Auto) Lymph # (Auto) [place] # (Auto) Eos # (Auto) Baso # (Auto) Absolute Nucleated RBC Nucleated RBC % PT INR Sodium Potassium Chloride Carbon Dioxide Anion Gap BUN Creatinine Estimated GFR (MDRD) Glucose Calcium Total Bilirubin AST ALT Alkaline Phosphatase Troponin I High Sens 14.2 Total Protein Albumin Globulin Albumin/Globulin Ratio Lipase Urine Color YELLOW Urine Clarity HAZY Urine pH 5.5 Ur Specific [place] 1.020 Urine Protein TRACE Urine Glucose (UA) >=1000 H Urine Ketones 40 H Urine Occult Blood TRACE-INTA Urine Nitrite NEGATIVE Urine Bilirubin NEGATIVE Urine Urobilinogen 0.2 (NORMAL) Ur Leukocyte Esterase NEGATIVE Urine RBC 0-5 Urine WBC 6-10 H Ur Squamous Epith Cells MANY Squamous H Amorphous Sediment Few Urine Bacteria Many H Ur Microscopic Review INDICATED Urine Culture Comments NOT INDICATED - Rads (name of study) CT abd/pelvis Radiology: Final report received, EMP read indepedently, See rad report (11 mm L proximal ureteral stone with hydrenophrosis and perinephric stranding.) chest XR Radiology: Final report received, EMP read indepedently, See rad report (neg) PD MEDICAL DECISION MAKING - ED course Complexity details: reviewed old records, reviewed results, re-evaluated patient, considered differential, d/w patient ED course: The patient was treated symptomatically with 2 L of IV fluid, 3 doses of Dilaudid, Toradol, and Zofran. She was worked up with laboratory studies, which showed a normal troponin and a leukocytosis. Urinalysis was negative for infection. CT scan of the abdomen pelvis showed a large, 11 mm calculus in the proximal left ureter. I discussed with the patient that she has a rather large stone and that this may or may not pass spontaneously. I have discussed with her the importance of following up with urology, and have given her options with the encouragement to call first thing tomorrow morning. Patient is feeling much much better, and is stable for discharge home. We have discussed the usual indications for return. Departure - Departure Disposition: 01 Home, Self Care Clinical Impression: Kidney stone Condition: Stable Instructions: ED Stone Renal W Colic Follow-Up: Eulalia Stock MD [Physician No Access] - Shea Parisi MD [Physician No Access] - Prescriptions: Tamsulosin [Flomax] 0.4 mg PO DAILY #7 oxyCODONE/ACET 5/325 [Percocet 5 mg/325 mg] 1 each PO Q4-6H #14 tablet Ondansetron Odt [Zofran Odt] 4 mg TL Q6H PRN #10 tablet PRN Reason: Nausea / Vomiting Comments: Your labs look fairly good, but your CT scan showed a large kidney stone on the left. It is possible that this will pass on its own, but it may have some trouble, due to the size. As such, it is very important that you follow-up with urology for further evaluation. Your urine shows no signs of infection, this at this point, the focus will be symptom control at home and trying to help your stone pass. You may take the medicine for pain and nausea as needed. You should drink plenty of fluids. 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 Please call first thing tomorrow morning to set up a follow-up appointment with urology. Discharge Date/Time: 07/14/20 16:15
[2020-07-14 16:03] VITALS: BP 138/77
== END 2020-07-14 16:15 | disposition home or self-care (01) ==
LOC: EDBD → EDUNIT# → ED 11:32
DX: N13.2 Hydronephrosis with renal and ureteral calculous obstruction (principal); I10 Essential (primary) hypertension; E11.9 Type 2 diabetes mellitus without complications; Z79.4 Long term (current) use of insulin; Z87.891 Personal history of nicotine dependence
CPT/HCPCS: 36415; 71045; 74176; 80053; 81001; 83690; 84484; 85025; 85610; 93005; 96361; 96374; 96375; 96376; 99283; 99284; A9270; J1170; 81003; 87086

== ENCOUNTER 2020-10-31 05:41 | Outpatient (CLI) | payer MEDICAID | END 2020-10-31 05:42 | disposition critical access hospital (66) | LOC: EMS 05:41 | DX: R07.89 Other chest pain (principal); R11.0 Nausea | CPT/HCPCS: A0425; A0427; A0999 ==

== ENCOUNTER 2020-10-31 06:36 | Emergency (ER) | payer MEDICAID ==
[2020-10-31] MEDS ORDERED: SODIUM CHLORIDE 0.9% 1,000 ML IV STA ×2 (06:39→08:19)
[2020-10-31] MEDS ORDERED: ONDANSETRON 4 MG/2 ML VIAL IVP STA (06:40)
[2020-10-31] MEDS ORDERED: HYDROmorphone 1 MG/ML CARPUJECT IVP STA ×3 (06:40→09:18)
--- NOTE | 2020-10-31 06:56 | ED Physician Documentation ---
PD HPI NVD - Stated complaint Stated Complaint: N/V/CHEST PX - Chief complaint Chief Complaint: Cardiac - History obtained from History obtained from: Patient - History of Present Illness Timing - onset: How many days ago (5) Timing - duration: Days (5) Timing - details: Gradual onset, Still present Associated symptoms: Abdominal pain (epigastric/upper abd to lower chest), Loss of appetite. No: Fever, Hematemesis, Melena, Near syncope / syncope Contributing factors: Other (She states she ran out of her metoprolol 5 days ago and had not gotten a refill from her primary care as yet. No other med changes.). No: Sick contact, Bad food, Recent antibiotics, Alcohol use Improved by: No: Vomiting Worsened by: Eating. No: Moving, Breathing Similar symptoms before: Has not had sx before Recently seen: Not recently seen Review of Systems Constitutional: reports: Myalgias. denies: Fever, Chills Nose: denies: Rhinorrhea / runny nose, Congestion Throat: denies: Sore throat Cardiac: reports: Chest pain / pressure (lower chest/epigastric area) Respiratory: denies: Cough GI: reports: Abdominal Pain, Nausea, Vomiting. denies: Constipation, Diarrhea, Hematemesis : denies: Dysuria, Frequency Neurologic: reports: Generalized weakness. 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 : None HEENT: None Psych: Anxiety Musculoskeletal: None Derm: None - Past Surgical History Past Surgical History: Yes /DRYERMAN/WOMAN: section HEENT: Tonsil/Adenoidectomy - Present Medications Home Medications: Ambulatory Orders Medication Instructions Recorded Confirmed Insulin Glargine [Lantus Solostar] 30 units SUBQ BID 05/28/17 10/31/20 Insulin Lispro [Humalog] 6 units SUBQ TIDWM 05/28/17 10/31/20 lisinopriL [Lisinopril] 40 mg PO DAILY 05/28/17 10/31/20 hydrOXYzine pamoate [Hydroxyzine 1 cap PO Q4H PRN 11/11/17 10/31/20 Pamoate] Apixaban [Eliquis] 5 mg PO BID 08/12/18 10/31/20 Chlorthalidone 25 mg PO DAILY 08/12/18 10/31/20 Fluticasone [Flonase] 1 sprays NEGRITA BID 08/12/18 10/31/20 Metoprolol Succinate [Toprol Xl] 100 mg PO DAILY 08/12/18 10/31/20 PARoxetine HCL [Paroxetine HCl] 40 mg PO DAILY 08/12/18 10/31/20 Pantoprazole Sodium [Protonix] 40 mg PO DAILY 08/12/18 10/31/20 Ondansetron Odt [Zofran Odt] 4 mg TL Q6H PRN #10 tablet 07/14/20 10/31/20 Tamsulosin [Flomax] 0.4 mg PO DAILY #7 07/14/20 10/31/20 oxyCODONE/ACET 5/325 [Percocet 5 1 each PO Q4-6H #14 tablet 07/14/20 10/31/20 mg/325 mg] HYDROcod/ACETAM 5/325 [[place] 5/325] 1 ea PO Q6H PRN #15 tablet 10/31/20 Lidocaine Viscous 2% [Xylocaine 5 ml PO Q4H PRN #100 ml 10/31/20 Viscous 2%] Metoprolol Succinate 100 mg PO DAILY #10 10/31/20 Ondansetron Odt [Zofran] 4 mg TL Q6H PRN #20 tablet 10/31/20 Pantoprazole Sodium 20 mg PO DAILY #30 10/31/20 - Allergies Allergies/Adverse Reactions: Allergies Allergy/AdvReac Type Severity Reaction Status Date / Time No Known Drug Allergies Allergy Verified 07/14/20 11:50 - Social History Does the pt smoke?: No Smoking Status: Former smoker Does the pt drink ETOH?: Yes Does the pt have substance abuse?: Yes - POLST Patient has POLST: No PD ED PE NORMAL - Vitals Vital signs reviewed: Yes - General General: Alert and oriented X 3, Well developed/nourished, Other (Rest due to epigastric pain and also nausea with vomiting in the ER.) - HEENT HEENT: Pharynx benign. No: Moist mucous membranes - Neck Neck: Supple, no meningeal sign, No adenopathy - Cardiac Cardiac: RRR, No murmur - Respiratory Respiratory: Clear bilaterally, Other (no chestwall tenderness) - Abdomen Abdomen: Normal bowel sounds, Soft, Non distended, No organomegaly, Other (Is tender with some local guarding in the epigastric area. No percussion or r ebound tenderness. Lower abdomen is nontender.) - Female Female : Deferred - Rectal Rectal: Deferred - Back Back: No CVA TTP - Derm Derm: Warm and dry, No rash, Other (somewhat pale. ) - Extremities Extremities: No edema, No calf tenderness / cord - Neuro Neuro: Alert and oriented X 3, No motor deficit, Normal speech Eye Opening: Spontaneous Motor: Obeys Commands Verbal: Oriented GCS Score: 15 Results - Vitals Vitals: Vital Signs - 24 hr 10/31/20 10/31/20 10/31/20 06:48 07:20 10:46 Temperature 36.8 C 36.9 C Heart Rate 91 94 75 Respiratory 35 H 19 23 Rate Blood Pressure 159/105 H 155/81 H 130/81 H O2 Saturation 99 98 99 Oxygen O2 Source Room air - Labs Labs: Laboratory Tests 10/31/20 10/31/20 10/31/20 06:55 06:55 06:55 WBC 15.6 H RBC 4.86 Hgb 13.6 Hct 40.0 MCV 82.3 MCH 28.0 MCHC 34.0 RDW 12.1 Plt Count 282 MPV 11.7 H Neut # (Auto) 10.4 H Lymph # (Auto) 3.8 H [place] # (Auto) 1.3 H Eos # (Auto) 0.0 Baso # (Auto) 0.0 Absolute Nucleated RBC 0.00 Nucleated RBC % 0.0 PT 11.5 INR 1.0 APTT VBG pH VBG pCO2 VBG pO2 VBG HCO3 VBG Total CO2 VBG O2 Saturation VBG Base Excess Sodium 129 L Potassium 2.7 L Chloride 89 L Carbon Dioxide 19 L Anion Gap 21.0 H BUN 40 H Creatinine 1.7 H Estimated GFR (MDRD) 30 L Glucose 225 H Calcium 9.2 Magnesium Total Bilirubin 1.6 H AST 29 ALT 29 Alkaline Phosphatase 66 Troponin I High Sens B-Natriuretic Peptide Total Protein 7.7 Albumin 4.1 Globulin 3.6 Albumin/Globulin Ratio 1.1 Lipase 30 Serum Ketones 10/31/20 10/31/20 10/31/20 06:55 06:55 07:31 WBC RBC Hgb Hct MCV MCH MCHC RDW Plt Count MPV Neut # (Auto) Lymph # (Auto) [place] # (Auto) Eos # (Auto) Baso # (Auto) Absolute Nucleated RBC Nucleated RBC % PT INR APTT 16.1 L VBG pH VBG pCO2 VBG pO2 VBG HCO3 VBG Total CO2 VBG O2 Saturation VBG Base Excess Sodium Potassium Chloride Carbon Dioxide Anion Gap BUN Creatinine Estimated GFR (MDRD) Glucose Calcium Magnesium 1.6 L Total Bilirubin AST ALT Alkaline Phosphatase Troponin I High Sens 34.2 H* B-Natriuretic Peptide Total Protein Albumin Globulin Albumin/Globulin Ratio Lipase Serum Ketones NEGATIVE 10/31/20 10/31/20 07:31 07:31 WBC RBC Hgb Hct MCV MCH MCHC RDW Plt Count MPV Neut # (Auto) Lymph # (Auto) [place] # (Auto) Eos # (Auto) Baso # (Auto) Absolute Nucleated RBC Nucleated RBC % PT INR APTT VBG pH 7.523 H VBG pCO2 28.8 L VBG pO2 38.0 VBG HCO3 23.1 VBG Total CO2 24.0 VBG O2 Saturation 79.4 VBG Base Excess 1.5 Sodium Potassium Chloride Carbon Dioxide Anion Gap BUN Creatinine Estimated GFR (MDRD) Glucose Calcium Magnesium Total Bilirubin AST ALT Alkaline Phosphatase Troponin I High Sens B-Natriuretic Peptide 112 H Total Protein Albumin Globulin Albumin/Globulin Ratio Lipase Serum Ketones - Rads (name of study) chest angio Radiology: Prelim report reviewed (Normal aorta and pulmonary vessels. No other acute abnormality seen.), EMP read contemporaneously (Also noted is normal- appearing gallbladder and upper abdomen.), See rad report PD MEDICAL DECISION MAKING - ED course Complexity details: reviewed results (No acute process identified on lab tests or CT or EKG. Given the epigastric location with nausea and vomiting, I would presume some gastritis versus ulcer. She did have improvement with a GI cocktail. We will treat her as such.), re-evaluated patient (improved with IV fluids and meds. ), considered differential (Is in considerable distress with epigastric to chest pain into her back and is hypertensive. Concern for aortic process versus perforated ulcer versus gallbladder versus free air.), d/w patient Departure - Departure Disposition: 01 Home, Self Care Clinical Impression: Acute upper abdominal pain, Dehydration, Hypokalemia, Hypomagnesemia Acute gastritis Qualifiers: Gastritis type: unspecified gastritis Gastritis bleeding: without bleeding Qualified Code(s): K29.00 - Acute gastritis without bleeding Condition: Stable Record reviewed to determine appropriate education?: Yes Instructions: ED Diet High Potassium, ED PUD Vs Gastritis Prescriptions: Metoprolol Succinate 100 mg PO DAILY #10 HYDROcod/ACETAM 5/325 [[place] 5/325] 1 ea PO Q6H PRN #15 tablet PRN Reason: Pain Pantoprazole Sodium 20 mg PO DAILY #30 Lidocaine Viscous 2% [Xylocaine Viscous 2%] 5 ml PO Q4H PRN #100 ml PRN Reason: Pain Ondansetron Odt [Zofran] 4 mg TL Q6H PRN #20 tablet PRN Reason: Nausea / Vomiting Comments: Small frequent fluids and bland food for the next few days. Presume you have some gastritis or ulcer causing your symptoms and this will take a while for your stomach to heal up. Acid reducing medicine such as pantoprazole looks like it is on your medicine list better with your prescription for more in case) daily for the next month. Add antacid such as Maalox or Mylanta along with some lidocaine to help with the stomach pains. Tylenol every 4-6 hours if needed for pain or hydrocodone if needed for worse pain in the short-term. Ondansetron if needed for nausea. Continue your other medications. I wrote short-term prescription for your metoprolol until you are able to get a regular refill from your provider. Recheck if not improved well over the next few days and return if worse again. [facility] transmitted [facility] in [place]. Your potassium was also low so add some dietary potassium supplements (high potassium foods over the next week as well. Discharge Date/Time: 10/31/20 11:14
[2020-10-31 07:01] LABS: BASOPHILS % (AUTO) 0.3 %; EOSINOPHILS % (AUTO) 0.1 %; HGB - HEMOGLOBIN 13.6 g/dL (12.0-16.0); LYMPHOCYTES # (AUTO) 3.8 10^3/uL (1.5-3.5); LYMPHOCYTES % (AUTO) 24.4 %; MEAN CORPUSCULAR VOLUME 82.3 fL (81.0-99.0); MEAN PLATELET VOLUME 11.7 fL (7.9-10.8); MONOCYTES # (AUTO) 1.3 10^3/uL (0.0-1.0); MONOCYTES % (AUTO) 8.3 %; NEUTROPHILS # (AUTO) 10.4 10^3/uL (1.5-6.6); NEUTROPHILS % (AUTO) 66.3 %; PLT - PLATELET COUNT 282 10^3/uL (130-450); RED BLOOD COUNT 4.86 10^6/uL (4.20-5.40); RED CELL DISTRIBUTION WIDTH 12.1 % (12.0-15.0); WHITE BLOOD COUNT 15.6 x10^3/uL (4.8-10.8)
[2020-10-31] MEDS ORDERED: METOPROLOL 5 MG/5 ML VIAL IVP STA (07:07)
[2020-10-31] MEDS ORDERED: DROPERIDOL 5 MG/2 ML VIAL IVP STA (07:07)
[2020-10-31 07:21] LABS: ALBUMIN 4.1 g/dL (3.2-5.5); ALBUMIN/GLOBULIN RATIO 1.1 (1.0-2.2); BILIRUBIN,TOTAL 1.6 mg/dL (0.2-1.0); CALCIUM 9.2 mg/dL (8.5-10.3); CREATININE 1.7 mg/dL (0.4-1.0); POTASSIUM 2.7 mmol/L (3.5-5.0); TOTAL PROTEIN 7.7 g/dL (6.7-8.2)
[2020-10-31] MEDS ORDERED: IOPAMIDOL-300 100 ML VIAL ONE (07:30)
[2020-10-31 07:37] LABS: VBG HCO3 23.1 mmol/L (23-28); VBG PCO2 28.8 mmHg (41-51); VBG PH 7.523 (7.31-7.41)
[2020-10-31 07:38] LABS: VBG BASE EXCESS 1.5 mmol/L (-2 - +2); VBG OXYGEN SATURATION 79.4 % (60-80)
[2020-10-31 07:40] LABS: PT - PROTHROMBIN TIME 11.5 secs (9.9-12.6)
[2020-10-31 07:47] LABS: MAGNESIUM 1.6 mg/dL (1.7-2.8)
[2020-10-31] MEDS ORDERED: POTASSIUM CHLOR 10 MEQ/100 ML 10 MEQ/100 ML BAG IV ONE (07:48)
[2020-10-31 07:57] LABS: KETONES, SERUM (ACETEST) NEGATIVE (NEGATIVE)
--- NOTE | 2020-10-31 08:12 | XRAY Report ---
PROCEDURE: Chest 1 View X-Ray INDICATIONS: Chest Pain TECHNIQUE: One view of the chest was acquired. COMPARISON: 07/14/2020 FINDINGS: Surgical changes and devices: None. Lungs and pleura: No pleural effusions or pneumothorax. Lungs are clear. Mediastinum: Mediastinal contours appear normal. Heart size is normal. Bones and chest wall: No suspicious bony lesions. Overlying soft tissues appear unremarkable. IMPRESSION: No acute cardiopulmonary abnormality. Findings above correspond with preliminary findings by [facility]. Reviewed by: David Alejo on 10/31/2020 8:11 AM PDT Approved by: David Alejo on 10/31/2020 8:11 AM PDT Station ID: [id number]
[2020-10-31] MEDS ORDERED: IOPAMIDOL-300 100 ML VIAL IVP ONE (08:16)
[2020-10-31] MEDS ORDERED: MAGNESIUM SULFATE 2 GRAM 2 GM/50 ML BAG IV ONE (08:19)
--- NOTE | 2020-10-31 08:23 | CT Report ---
PROCEDURE: ANGIO CHEST W/WO INDICATIONS: epigastric/lower chest pain to back; htn CONTRAST: IV CONTRAST: Isovue 300 ml: 80 PO CONTRAST: *NO PO CONTRAST TECHNIQUE: After the administration of intravenous contrast, images were acquired from the pulmonary apices to t he posterior costophrenic angles. 3-dimensional maximum intensity projection (MIP) coronal and sagit aron reformats were then acquired through the thorax. For radiation dose reduction, the following was used: automated exposure control, adjustment of mA and/or kV according to patient size. COMPARISON: CT of the chest dated 07/14/2020 FINDINGS: Image quality: Excellent. Pulmonary arteries: Pulmonary arteries are normal in size, and demonstrate no intraluminal filling d efects to suggest central pulmonary embolism. Lungs and pleura: Lungs are clear. No pleural effusions or pneumothorax. Central and peripheral ai rways are patent. Mediastinum: Cardiac chambers are enlarged.. 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 No mediastinal or hilar adenopathy. Thoracic aorta is normal in caliber and enhancement. Esophagus is normal in caliber, without hiatal hernia. Bones and chest wall: No suspicious bony lesions. Ribs and thoracic spine appear intact throughout. No axillary or supraclavicular adenopathy. The thyroid is normal in size and there are no incident al findings. Abdomen: The upper abdomen was partially IMPRESSION: 1. No pulmonary embolism. 2. No acute abnormality of the chest. 3. Pericardial cyst as above. Unchanged compared to prior CT. Reviewed by: David Alejo on 10/31/2020 8:21 AM PDT Approved by: David Alejo on 10/31/2020 8:21 AM PDT Station ID: [id number]
[2020-10-31] MEDS ORDERED: LIDOCAINE VISCOUS 2% 15 ML UDC MM STA (09:18)
[2020-10-31] MEDS ORDERED: MAG HYDROX/AL HYDROX/SIMETH 30 ML UDC PO STA (09:18)
[2020-10-31 10:48] VITALS: BP 130/81
== END 2020-10-31 11:14 | disposition home or self-care (01) ==
LOC: EDUNIT# → ED 06:36
DX: K29.70 Gastritis, unspecified, without bleeding (principal); E86.0 Dehydration; E87.6 Hypokalemia; E83.42 Hypomagnesemia; Z87.891 Personal history of nicotine dependence
CPT/HCPCS: 36415; 71045; 71275; 80053; 82009; 82803; 83690; 83735; 83880; 84484; 85025; 85610; 85730; 93005; 96361; 96365; 96375; 96376; 99284; 99285; A9270; J1170; Q9967; 86850; 86900; 86901; 86920

== ENCOUNTER 2020-11-01 12:19 | Observation (INO) | payer MEDICAID ==
[2020-11-01] MEDS ORDERED: LACTATED RINGERS 1,000 ML IV STA (12:52)
[2020-11-01] MEDS ORDERED: HYDROmorphone 1 MG/ML CARPUJECT IVP STA (12:52)
[2020-11-01] MEDS ORDERED: HALOPERIDOL 5 MG/ML VIAL IVP ONE (12:52)
--- NOTE | 2020-11-01 12:55 | ED Physician Documentation ---
PD HPI ABD PAIN - Stated complaint Stated Complaint: NAUSEA/VOMITING - Chief complaint Chief Complaint: Abd Pain - History obtained from History obtained from: Patient - Additional information Additional information: 65-year-old woman with longstanding type 1 diabetes presents with 6 days of epigastric pain radiating to the shoulders and back associated with severe vomiting and nausea. She has had similar episodes before but also states that it "feels like a kidney stone," although it does not seem to lateralize. She was seen yesterday and had labs and a CT done without pertinent positive find ings. She admits to daily marijuana use and she does find relief from heat and hot baths although doubts that cannabinoid hyperemesis could be the problem since she has been smoking marijuana for quite some time on a daily basis and has never had that before. She does have a history of coronary disease with 2 MIs in the past. No history of abdominal surgeries. Yesterday lab work was notable for a CBC with a white count of 15.6, but noting that she has a chronic leukocytosis. Venous blood gas was notable for pH of 7.52 and a CO2 of 28 consistent with hyperventilation. Chemistries were notable for a potassium of 2.7, BUN of 40, creatinine of 1.9. She did have a modestly elevated troponin at 34. States that since discharge yesterday she is unable to keep anything down including the medications she was prescribed for symptomatic relief. She has no known history of gastroparesis per her. Review of Systems Ten Systems: 10 systems reviewed and negative Constitutional: reports: Chills, Fatigue, Sweats Nose: reports: Reviewed and negative Throat: reports: Reviewed and negative Cardiac: reports: Reviewed and negative PD PAST MEDICAL HISTORY - Past Medical History Cardiovascular: Hypertension, DC, Arrhythmia Respiratory: None Endocrine/Autoimmune: Type 2 diabetes GI: None CERTIFIED ATHLETIC TRAINER: None : None HEENT: None Psych: Anxiety Musculoskeletal: None Derm: None - Past Surgical History Past Surgical History: Yes /CERTIFIED ATHLETIC TRAINER: section HEENT: Tonsil/Adenoidectomy - Present Medications Home Medications: Ambulatory Orders Medication Instructions Recorded Confirmed Insulin Glargine [Lantus Solostar] 30 units SUBQ BID 05/28/17 10/31/20 Insulin Lispro [Humalog] 6 units SUBQ TIDWM 05/28/17 10/31/20 lisinopriL [Lisinopril] 40 mg PO DAILY 05/28/17 10/31/20 hydrOXYzine pamoate [Hydroxyzine 1 cap PO Q4H PRN 11/11/17 10/31/20 Pamoate] Apixaban [Eliquis] 5 mg PO BID 08/12/18 10/31/20 Chlorthalidone 25 mg PO DAILY 08/12/18 10/31/20 Fluticasone [Flonase] 1 sprays NEGRITA BID 08/12/18 10/31/20 Metoprolol Succinate [Toprol Xl] 100 mg PO DAILY 08/12/18 10/31/20 PARoxetine HCL [Paroxetine HCl] 40 mg PO DAILY 08/12/18 10/31/20 Pantoprazole Sodium [Protonix] 40 mg PO DAILY 08/12/18 10/31/20 Ondansetron Odt [Zofran Odt] 4 mg TL Q6H PRN #10 tablet 07/14/20 10/31/20 Tamsulosin [Flomax] 0.4 mg PO DAILY #7 07/14/20 10/31/20 oxyCODONE/ACET 5/325 [Percocet 5 1 each PO Q4-6H #14 tablet 07/14/20 10/31/20 mg/325 mg] HYDROcod/ACETAM 5/325 [[place] 5/325] 1 ea PO Q6H PRN #15 tablet 10/31/20 Lidocaine Viscous 2% [Xylocaine 5 ml PO Q4H PRN #100 ml 10/31/20 Viscous 2%] Metoprolol Succinate 100 mg PO DAILY #10 10/31/20 Ondansetron Odt [Zofran] 4 mg TL Q6H PRN #20 tablet 10/31/20 Pantoprazole Sodium 20 mg PO DAILY #30 10/31/20 - Allergies Allergies/Adverse Reactions: Allergies Allergy/AdvReac Type Severity Reaction Status Date / Time No Known Drug Allergies Allergy Verified 11/01/20 12:42 - Social History Does the pt smoke?: No Smoking Status: Former smoker Does the pt drink ETOH?: Yes Does the pt have substance abuse?: Yes - Immunizations Immunizations are current?: No Immunizations: TDAP >10years/unknown - POLST Patient has POLST: No PD ED PE NORMAL - Vitals Vital signs reviewed: Yes - General General: Alert and oriented X 3, Other (She is retching uncomfortable and hyperventilating) - HEENT HEENT: PERRL, EOMI - Neck Neck: Supple, no meningeal sign, No bony TTP - Cardiac Cardiac: RRR, No murmur - Respiratory Respiratory: No respiratory distress, Clear bilaterally - Abdomen Abdomen: Soft, Non tender - Derm Derm: Normal color, Warm and dry - Extremities Extremities: No deformity, No edema, No calf tenderness / cord - Neuro Neuro: Alert and oriented X 3, Normal speech Results - Vitals Vitals: Vital Signs - 24 hr 11/01/20 11/01/20 11/01/20 12:36 14:42 16:00 Temperature 36.6 C 36.6 C 36.5 C Heart Rate 82 73 65 Respiratory 20 24 16 Rate Blood Pressure 155/102 H 159/84 H 136/61 H O2 Saturation 99 99 93 Oxygen O2 Source Room air - EKG (time done) 1258 Rate: Rate (enter#) (84) Rhythm: Other (ectopic atrial with pac) Intervals: Prolonged QT (452) QRS: LVH Ischemia: Normal ST segments - Labs Labs: Laboratory Tests 11/01/20 11/01/20 11/01/20 13:33 13:33 13:33 WBC 11.6 H RBC 4.21 Hgb 12.1 Hct 34.4 L MCV 81.7 MCH 28.7 MCHC 35.2 RDW 12.1 Plt Count 207 MPV 11.9 H Neut # (Auto) 7.6 H Lymph # (Auto) 2.9 [place] # (Auto) 0.9 Eos # (Auto) 0.0 Baso # (Auto) 0.0 Absolute Nucleated RBC 0.00 Nucleated RBC % 0.0 Sodium 131 L Potassium 2.6 L Chloride 95 L Carbon Dioxide 23 Anion Gap 13.0 BUN 26 H Creatinine 1.1 H Estimated GFR (MDRD) 50 L Glucose 152 H Calcium 9.0 Magnesium 1.9 Total Bilirubin 0.9 AST 25 ALT 26 Alkaline Phosphatase 59 Troponin I High Sens 23.0 H* Total Protein 7.0 Albumin 3.8 Globulin 3.2 Albumin/Globulin Ratio 1.2 Lipase 53 H PD MEDICAL DECISION MAKING - ED course ED course: 65-year-old woman presents with intractable nausea and vomiting and failure of outpatient treatment yesterday. Likely due to cannabinoid hyperemesis. After 3 rounds of antiemetics here still unable to tolerate p.o. Potassium was repleted oral and IV although she did not tolerate the oral well either. Spoke with Dr. Seymour for observation at 5:10 PM. Departure - Departure Disposition: ED Place in Observation Clinical Impression: Hypokalemia, Cannabinoid hyperemesis syndrome Vomiting Qualifiers: Vomiting type: unspecified Vomiting Intractability: intractable Nausea presence: with nausea Qualified Code(s): R11.2 - Nausea with vomiting, unspecified Abdominal pain Qualifiers: Abdominal location: epigastric Qualified Code(s): R10.13 - Epigastric pain Condition: Serious
[2020-11-01 13:40] LABS: BASOPHILS % (AUTO) 0.3 %; EOSINOPHILS % (AUTO) 0.2 %; HCT - HEMATOCRIT 34.4 % (37.0-47.0); HGB - HEMOGLOBIN 12.1 g/dL (12.0-16.0); LYMPHOCYTES # (AUTO) 2.9 10^3/uL (1.5-3.5); LYMPHOCYTES % (AUTO) 25.3 %; MEAN CORPUSCULAR HEMOGLOBIN 28.7 pg (27.0-31.0); MEAN CORPUSCULAR HGB CONC 35.2 g/dL (32.0-36.0); MEAN CORPUSCULAR VOLUME 81.7 fL (81.0-99.0); MEAN PLATELET VOLUME 11.9 fL (7.9-10.8); MONOCYTES # (AUTO) 0.9 10^3/uL (0.0-1.0); MONOCYTES % (AUTO) 7.7 %; NEUTROPHILS # (AUTO) 7.6 10^3/uL (1.5-6.6); PLT - PLATELET COUNT 207 10^3/uL (130-450); RED BLOOD COUNT 4.21 10^6/uL (4.20-5.40); RED CELL DISTRIBUTION WIDTH 12.1 % (12.0-15.0); WHITE BLOOD COUNT 11.6 x10^3/uL (4.8-10.8)
[2020-11-01 13:52] LABS: ALBUMIN 3.8 g/dL (3.2-5.5); ALBUMIN/GLOBULIN RATIO 1.2 (1.0-2.2); BILIRUBIN,TOTAL 0.9 mg/dL (0.2-1.0); CREATININE 1.1 mg/dL (0.4-1.0); MAGNESIUM 1.9 mg/dL (1.7-2.8); POTASSIUM 2.6 mmol/L (3.5-5.0)
[2020-11-01] MEDS ORDERED: POTASSIUM CHLOR 10 MEQ/100 ML 10 MEQ/100 ML BAG IV STA (14:02)
--- NOTE | 2020-11-01 14:28 | CT Report ---
PROCEDURE: Abdomen/Pelvis WO INDICATIONS: L flank and abd pain TECHNIQUE: Noncontrast 5 mm thick sections acquired from the diaphragms to the symphysis. 5 mm coronal and sagi ttal reformats were then performed. For radiation dose reduction, the following was used: automated exposure control, adjustment of mA and/or kV according to patient size. COMPARISON: None. FINDINGS: Image quality: Excellent. ABDOMEN: Lung bases: The lung bases have mild atelectasis but are otherwise clear. Heart size is normal. Solid organs: Liver and spleen are normal in size. The liver is low density consistent with hepatic steatosis. Gallbladder contains layering high density, likely sludge. Pancreas is normal in contours . No adrenal nodules. The right kidney is normal. The left kidney has 2 cysts measuring 2.3 cm and 2 .4 cm. No solid mass. Peritoneum and bowel: Unenhanced bowel loops demonstrate normal wall thickness and caliber. No free fluid or air. There is diverticulosis without colitis. Nodes and vessels: No retroperitoneal or mesenteric adenopathy by size criteria. Aorta and inferior vena cava are normal in caliber. The aortic calcifications. The left renal artery has atherosclerot ic calcifications at the origin. Miscellaneous: No ventral hernias. PELVIS: Genitourinary: Bladder wall thickness is normal. Miscellaneous: No inguinal hernias or adenopathy. Bones: No suspicious bony lesions. No vertebral body compression fractures. IMPRESSION: 1. No acute abdominal or pelvic abnormality. 2. Diverticulosis without evidence of diverticulitis. 3. A stone seen in the left proximal ureter on 07/14/2020 is no longer present. Reviewed by: David Alejo on 11/01/2020 2:27 PM PDT Approved by: David Alejo on 11/01/2020 2:27 PM PDT Station ID: [id number]
[2020-11-01] MEDS ORDERED: METOCLOPRAMIDE 10 MG/2 ML VIAL IVP STA (14:36)
[2020-11-01] MEDS ORDERED: KETOROLAC 30 MG/ML VIAL IVP STA (14:36)
[2020-11-01] MEDS ORDERED: PROMETHAZINE INJ 12.5 MG in SODIUM CHLORIDE 0.9% 50 ML IV STA (15:30)
[2020-11-01] MEDS ORDERED: POTASSIUM CHLORIDE 20 MEQ TABLET PO STA (16:28)
[2020-11-01] MEDS ORDERED: SODIUM CHLORIDE FLUSH 0.9% 10 ML SYRINGE IVP PRN (17:42)
[2020-11-01] MEDS ORDERED: ONDANSETRON ODT 4 MG TABLET TL PRN (17:42)
[2020-11-01] MEDS ORDERED: PROMETHAZINE 25 MG/1 ML VIAL IM PRN (17:42)
--- NOTE | 2020-11-01 17:47 | HISTORY & PHYSICAL EXAMINATION ---
Chief Complaint - Chief Complaint Chief Complaint: Nausea, vomiting, abdominal pain History of Present Illness - Admitted From Admitted From:: Home - History Obtained From Records Reviewed: [facility] History obtained from: patient and Dr. Nuñez Exam Limitations: none. - History of Present Illness HPI Comment/Other: When she had her heart attack she had to stop smoking. So she took up smoking cannabis instead. She does it every day several times a day. She is seen occasionally in the emergency room with hyperemesis syndrome. We last admitted her in July 2018 for this. In reviewing today's visit, she was seen yesterday because of the nausea vomiting and abdominal pain. She had run out of her metoprolol and has not gotten a refill yet. When she was admitted in July 2018 she had run out of her insulin and was having severe hyperglycemia. Hypertensive. She had normal bowel sounds. Tender epigastric area that was mild. She was seen by Dr. Lambert and treated with IV fluids, antiemetics. Her labs showed an elevated white cell count to 15.6, hypokalemia to 2.7. Yesterday her troponin was 34.2. BNP 112. BUN 40, creatinine 1.7. For her this is not unusual. In June creatinine was 1.9. Her random glucose was 225. Her abdominal pain was severe enough and high enough that he did a CT angiogram of her chest looking for aneurysm and there was no pulmonary embolism, no acute abnormality of the chest, and a pericardial cyst that was unchanged from prior CT June 2020. (She was seen in the emergency room in June 2020 with left flank pain. She had a stone then. She had moderate left-sided hydroureter and hydronephrosis) She felt well enough after his interventions that she went home. However she returns with epigastric pain that radiates to the shoulders and to the back and continued nausea and vomiting. She does tell Dr. Nuñez that warm baths do make this pain better She is again hypertensive at 155/102. Afebrile. Heart rate 82. White cell count is 11.6. Hemoglobin 12.1. Platelets 207. Potassium is still low at 2.6. Repeat troponin is 23 today. Creatinine is come down to 1.1. Lipase is 53. Because of continued pain, Dr. Nuñez did a CT of the abdomen. The lung bases have mild atelectasis. Liver/spleen was normal in size. Liver had hepatic steatosis. Gallbladder had high density sludge. Pancreas was normal. Diverticulosis without diverticulitis. The stone that was seen in the left proximal ureter in June is gone. She was in the ER for about 5 hours. He gave her Haldol, Dilaudid, ketorolac, a liter of lactated Ringer's, Reglan, potassium, Phenergan and still continued to have epigastric pain and nausea and vomiting. As such she is requesting observation status to control her pain, nausea and vomiting. . History - Past Medical History Cardiovascular: reports: Congestive heart failure (Echo 2017 normal, repeat echo with AL 2018 now with EF 30 to 35%), Hypertension, Angina, AL (2017 with normal cath, second AL October 2017 with STEMI), Atrial fibrillation (With STEMI 2018, placed on Eliquis), Arrhythmia, Other (morbid obesity) Respiratory: reports: None Neuro: reports: Peripheral neuropathy, Other (retinopathy) Endocrine/Autoimmune: reports: Type 1 diabetes (Diagnosed with AL. By 2018 with neuropathy and retinopathy. 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 Mom was healthy. Siblings are all healthy without cancer, heart attack, stroke or diabetes. 2 children are healthy Living arrangement: At home Living Situation: With spouse/s.o. Social History Notes: . Has lived with a significant other for 22 years. 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 Has tried applying for disability and has been denied. She denies any history of cocaine, heroin, LSD, methamphetamines. She has no history of alcohol abuse. - Substance History Use Issues: Mood Disorder, Other Abuse: Recurrent use of substance despite neg consequences: Cannabis Abuse Issues: Other (hyperemesis) Dependence: Experiences withdrawal or developed tolerances: NONE - POLST Patient has POLST: No POLST Status: Full Code Meds/Allgy - Home Medications Home Medications: Ambulatory Orders Medication Instructions Recorded Confirmed Insulin Glargine [Lantus Solostar] 35 units SUBQ BID 05/28/17 11/01/20 Insulin Lispro [Humalog] 6 units SUBQ TIDWM 05/28/17 11/01/20 lisinopriL [Lisinopril] 40 mg PO DAILY 05/28/17 11/01/20 hydrOXYzine pamoate [Hydroxyzine 1 cap PO Q4H PRN 11/11/17 11/01/20 Pamoate] Apixaban [Eliquis] 5 mg PO BID 08/12/18 11/01/20 Chlorthalidone 25 mg PO DAILY 08/12/18 11/01/20 Fluticasone [Flonase] 1 sprays NEGRITA BID 08/12/18 11/01/20 PARoxetine HCL [Paroxetine HCl] 40 mg PO DAILY 08/12/18 11/01/20 HYDROcod/ACETAM 5/325 [[place] 5/325] 1 ea PO Q6H PRN #15 tablet 10/31/20 11/01/20 Lidocaine Viscous 2% [Xylocaine 5 ml PO Q4H PRN #100 ml 10/31/20 11/01/20 Viscous 2%] Ondansetron Odt [Zofran] 4 mg TL Q6H PRN #20 tablet 10/31/20 11/01/20 Nitroglycerin [Nitrostat] 0.4 mg SL PRN 11/01/20 Nystatin [Nystop] 1 applic TOP BID 11/01/20 11/01/20 Omeprazole Magnesium 20 mg PO DAILY 11/01/20 11/01/20 metFORMIN [Glucophage] 500 mg PO BID 11/01/20 11/01/20 - Allergies Allergies/Adverse Reactions: Allergies Allergy/AdvReac Type Severity Reaction Status Date / Time No Known Drug Allergies Allergy Verified 11/01/20 19:16 Prior Level of Functionality: Independent with activities of daily living. Drives a car. 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 Able to dress herself and feed herself. Exam - Vital Signs Reviewed Vital Signs: Yes Vital Signs: Vital Signs x48h Temp Pulse Resp BP Pulse Ox 11/01/20 16:00 36.5 C 65 16 136/61 H 93 11/01/20 14:42 36.6 C 73 24 159/84 H 99 11/01/20 12:36 36.6 C 82 20 155/102 H 99 - Physical Exam General Appearance: positive: Alert, Mild distress (from nausea and "bruised" epigastric residual pain), Other (5'4" obese 91.5 kg female sitting up in bed leaning forward w legs outstretched in front of her) Eyes Bilateral: positive: PERRL, EOMI ENT: positive: No signs of dehydration Neck: negative: Stiff neck, Carotid bruit Respiratory: positive: No respiratory distress. negative: Wheezes, Rales, Rhonchi, Other (diminisehd at bases) Cardiovascular: positive: Regular rate & rhythm, Systolic murmur. negative: Gal lop/S4, Friction rub Peripheral Pulses: positive: 1+ Abdomen: positive: Nml bowel sounds, No distention, Tenderness (mod 4/10 in epigastric area. non radiating right now like it was before,). negative: Guarding, Rebound Skin: positive: Warm, Dry Extremities: positive: Non-tender, Full ROM, No pedal edema Neurologic/Psychiatric: positive: Oriented x3, CN's nml (2-12), Motor nml Conclusion/Plan - Problem List (1) Epigastric abdominal pain Conclusion/Plan: And vomiting. Differential diagnosis would include gastric disease such as gastritis, duodenal ulcer. She could also have biliary dyskinesia secondary to gallbladder sludge. She could also have hyperemesis syndrome from her marijuana . Plan: Observation status Aggressive antiemesis medication Small doses of opioids as needed IV fluids for hydration Unfortunately we cannot do an MRCP on the weekend. That can be done in the outpatient settting as well as a possible CCK HIDA scan. Copy of this H&P is beign sent to her PCP GLORIA Carlos so that these can be ordered once the office opens on Tuesday. Proton pump inhibitors IV for 24 hours Clear liquids Outpatient EGD (2) Hypokalemia Conclusion/Plan: Recheck labs that she was in the emergency room. And see if she needs further supplementation (3) Type 1 diabetes mellitus on insulin therapy Conclusion/Plan: Resume her usual Lantus. I will not give her her short acting as than before meals since she is not eating very much. Check A1c. Sliding scale insulin if necessary (4) Chronic kidney disease in type 1 diabetes mellitus Conclusion/Plan: Review of her labs show her to be with chronic elevated BUN and creatinine. Difficult to say if she has acute exacerbation right now but I think not. She has she has better labs today than she did yesterday. Continue to hydrate Recheck tomorrow morning's labs Avoid nephrotoxic agents Qualifiers: Chronic kidney disease stage: stage 3 (moderate) (5) Generalized anxiety disorder Conclusion/Plan: Hydroxyzine pamoate 25 mg is every 4 hours as needed. Paxil is 40 mg daily. That will be resumed as long as she can tolerate p.o. (6) Atrial fibrillation Conclusion/Plan: She appears to have a regular rhythm on EKG. But no discrete P wave. Troponins are better today than they were yesterday. We will continue anticoagulation while she is in the hospital. She is not on a rate lowering drug. Qualifiers: Atrial fibrillation type: permanent Qualified Code(s): I48.21 - Permanent atrial fibrillation - Lab Results Lab results reviewed: Yes Fish Bones: 11/02/20 08:31 11/02/20 08:31 Other Lab Results: Laboratory Tests 11/01/20 11/01/20 11/01/20 13:33 13:33 13:33 WBC 11.6 H Hgb 12.1 Hct 34.4 L Plt Count 207 Sodium 131 L Potassium 2.6 L Chloride 95 L Carbon Dioxide 23 Anion Gap 13.0 BUN 26 H Creatinine 1.1 H Estimated GFR (MDRD) 50 L Glucose 152 H POC Whole Bld Glucose Calcium 9.0 Magnesium 1.9 Total Bilirubin 0.9 AST 25 ALT 26 Alkaline Phosphatase 59 Troponin I High Sens 23.0 H* Total Protein 7.0 Albumin 3.8 Globulin 3.2 Albumin/Globulin Ratio 1.2 Lipase 53 H 11/01/20 20:30 WBC Hgb Hct Plt Count Sodium Potassium Chloride Carbon Dioxide Anion Gap BUN Creatinine Estimated GFR (MDRD) Glucose POC Whole Bld Glucose 56 L* Calcium Magnesium Total Bilirubin AST ALT Alkaline Phosphatase Troponin I High Sens Total Protein Albumin Globulin Albumin/Globulin Ratio Lipase - Diagnostic Imaging Results Diagnostic Imaging Results: positive: Final report reviewed Diagnostic Imaging Results Comments: Lung bases with mild atelectasis. The liver and spleen are normal in size but she appears to have hepatic steatosis. The gallbladder has layering high density, likely sludge. Pancreas normal. She has diverticulosis without diverticulitis. Stone seen in the left proximal ureter on June [address] is no longer present. - EKG Results EKG Interpreted Independently: No EKG Comparison: Unchanged from prior EKG EKG Findings: EKG with an ectopic atrial rhythm. I do see a P wave in V2. It is a regular rate and rhythm. PAC. Probable left ventricular hypertrophy. Prolonged QT. Core Measures - Anticipated LOS I expect patient to be DC'd or transferred within 96 hours.: Yes - DVT/VTE - Prophylaxis VTE/DVT Device ordered at admit?: Yes
[2020-11-01 18:09] LABS: BILIRUBIN,URINE NEGATIVE (NEGATIVE); GLUCOSE, URINE (UA) NEGATIVE (NEGATIVE); KETONES,URINE (UA) TRACE mg/dL (NEGATIVE); LEUKOCYTE ESTERASE, URINE NEGATIVE (NEGATIVE); NITRITE,URINE NEGATIVE (NEGATIVE); OCCULT BLOOD,URINE NEGATIVE (NEGATIVE); PH,URINE 5.5 PH (5.0-7.5); PROTEIN,URINE NEGATIVE (NEGATIVE); UROBILINOGEN,URINE 0.2 (NORMAL) E.U./dL (NORMAL)
[2020-11-01 18:10] LABS: CLARITY,URINE CLEAR (CLEAR)
[2020-11-01] MEDS: LACTATED RINGERS 1,000 ML IV SCH (18:49)
[2020-11-01 19:03] LABS: B. PARAPERTUSSIS- RESP PCR PAN NOT DETECTED; B. PERTUSSIS- RESP PCR PANEL NOT DETECTED; C. PNEUMONIAE- RESP PCR PANEL NOT DETECTED; CORONAVIRUS 229E-RESP PCR NOT DETECTED; CORONAVIRUS HKU1-RESP PCR NOT DETECTED; CORONAVIRUS NL63-RESP PCR NOT DETECTED; CORONAVIRUS OC43-RESP PCR NOT DETECTED; HUMAN METAPNEUMOVIRUS NOT DETECTED; INFLUENZA A- RESP PCR PANEL NOT DETECTED; INFLUENZA B - RESP PCR PANEL NOT DETECTED; M. PNEUMONIAE- RESP PCR PANEL NOT DETECTED; PARAINFLUENZA VIRUS 1 NOT DETECTED; PARAINFLUENZA VIRUS 2 NOT DETECTED; PARAINFLUENZA VIRUS 3 NOT DETECTED; PARAINFLUENZA VIRUS 4 NOT DETECTED; RHINOVIRUS/ENTEROVIRUS NOT DETECTED; RSV- RESP PCR PANEL NOT DETECTED; SARS-CoV-2 -RESP PCR PANEL NOT DETECTED
[2020-11-01] MEDS: ONDANSETRON 4 MG/2 ML VIAL IVP PRN (19:17)
[2020-11-01] MEDS: oxyCODONE 5 MG TABLET PO PRN ×2 (19:17→23:43)
[2020-11-01] MEDS: ACETAMINOPHEN 325 MG TABLET PO PRN (19:17)
[2020-11-01] MEDS ORDERED: INSULIN GLARGINE 300 UNIT/3 ML PEN SUBQ SCH (21:00)
[2020-11-01] MEDS: PROCHLORPERAZINE 10 MG/2 ML VIAL IVP PRN (21:41)
[2020-11-01] MEDS: hydrOXYzine PAMOATE 25 MG CAPSULE PO PRN (21:41)
[2020-11-01] MEDS: APIXABAN 5 MG TABLET PO SCH (21:41)
[2020-11-01] MEDS: INSULIN ASPART 300 UNIT/3 ML PEN SUBQ SCH (21:55)
[2020-11-01] MEDS: SODIUM CHLORIDE FLUSH 0.9% 10 ML SYRINGE IVP SCH (23:17)
[2020-11-02] MEDS: ONDANSETRON 4 MG/2 ML VIAL IVP PRN ×4 (01:18→19:32)
[2020-11-02] MEDS: PROCHLORPERAZINE 10 MG/2 ML VIAL IVP PRN ×4 (03:46→22:51)
[2020-11-02] MEDS: oxyCODONE 5 MG TABLET PO PRN ×4 (03:46→19:32)
[2020-11-02] MEDS: LACTATED RINGERS 1,000 ML IV SCH (04:30)
--- NOTE | 2020-11-02 06:50 | PHARMACY PROGRESS NOTE ---
- Best Possible Medication History Admit Date and Time: 11/01/20 1742 Processed by: Nursing Medication History completed: Yes Patient Interview: Completed Secondary Source(s): Pharmacy records, Insurance records As the person ultimately responsible for medication therapy, providers are able to order a medication from an existing home medication list in [facility] via the "Reconcile Routine" prior to Confirmation of that medication by senior technical support analyst. Such practice is discouraged except when the physician, in their clinical judgment, deems that a medical need exists for a medication without regard to previous use.
[2020-11-02] MEDS: INSULIN ASPART 300 UNIT/3 ML PEN SUBQ SCH ×4 (07:55→20:54)
[2020-11-02 08:06] LABS: ESTIMATED AVERAGE GLUCOSE 235 mg/dL (70-100); HEMOGLOBIN A1c% 9.8 % (4.27-6.07)
[2020-11-02] MEDS: SODIUM CHLORIDE FLUSH 0.9% 10 ML SYRINGE IVP SCH ×2 (08:08→17:05)
[2020-11-02] MEDS ORDERED: hydrALAZINE INJ 20 MG/ML VIAL IVP ONE (08:17)
[2020-11-02] MEDS: APIXABAN 5 MG TABLET PO SCH ×2 (08:37→20:54)
[2020-11-02] MEDS: PARoxetine 10 MG TABLET PO SCH (08:37)
[2020-11-02] MEDS: lisinopriL 20 MG TABLET PO SCH (08:38)
[2020-11-02 08:41] LABS: BASOPHILS # (AUTO) 0.1 10^3/uL (0.0-0.1); BASOPHILS % (AUTO) 0.6 %; EOSINOPHILS # (AUTO) 0.3 10^3/uL (0.0-0.7); EOSINOPHILS % (AUTO) 2.7 %; HCT - HEMATOCRIT 35.6 % (37.0-47.0); HGB - HEMOGLOBIN 11.9 g/dL (12.0-16.0); LYMPHOCYTES # (AUTO) 4.8 10^3/uL (1.5-3.5); LYMPHOCYTES % (AUTO) 44.2 %; MEAN CORPUSCULAR HEMOGLOBIN 28.6 pg (27.0-31.0); MEAN CORPUSCULAR HGB CONC 33.4 g/dL (32.0-36.0); MEAN CORPUSCULAR VOLUME 85.6 fL (81.0-99.0); MEAN PLATELET VOLUME 11.7 fL (7.9-10.8); MONOCYTES # (AUTO) 0.9 10^3/uL (0.0-1.0); MONOCYTES % (AUTO) 7.9 %; NEUTROPHILS # (AUTO) 4.8 10^3/uL (1.5-6.6); PLT - PLATELET COUNT 187 10^3/uL (130-450); RED BLOOD COUNT 4.16 10^6/uL (4.20-5.40); RED CELL DISTRIBUTION WIDTH 12.6 % (12.0-15.0); WHITE BLOOD COUNT 10.8 x10^3/uL (4.8-10.8)
[2020-11-02] MEDS: INSULIN GLARGINE 300 UNIT/3 ML PEN SUBQ SCH ×2 (08:44→20:59)
[2020-11-02] MEDS: DEXTROSE 5%-LACTATED RINGERS 1,000 ML IV SCH ×2 (08:44→20:53)
[2020-11-02 08:56] LABS: CALCIUM 8.7 mg/dL (8.5-10.3); CREATININE 1.2 mg/dL (0.4-1.0); POTASSIUM 2.9 mmol/L (3.5-5.0)
[2020-11-02] MEDS: hydrOXYzine PAMOATE 25 MG CAPSULE PO PRN (11:10)
--- NOTE | 2020-11-02 14:30 | PROVIDER PROGRESS NOTE ---
Subjective - Prog Note Date Prog Note Date: 11/02/20 Prog Note Time: 14:26 - Subjective Pt reports feeling: No change Subjective: She has had one episode of emesis since coming into the hospital. She has been trying clear liquids because she is hungry and wants to eat but nausea is almost immediate. While she has mild epigastric pain it is not severe enough that is radiating to the shoulders or to her back. Positive flatus. Current Medications - Current Medications Current Medications: Active Medications Acetaminophen (Acetaminophen 325 Mg Tablet) 650 mg PO Q4HR PRN PRN Reason: Pain 1 to 4 Last Admin: 11/01/20 19:17 Dose: 650 mg Documented by: Apixaban (Apixaban 5 Mg Tablet) 5 mg PO BID [facility] Last Admin: 11/02/20 08:37 Dose: 5 mg Documented by: Hydroxyzine Pamoate (Hydroxyzine Pamoate 25 Mg Capsule) 25 mg PO Q4H PRN PRN Reason: Anxiety Last Admin: 11/02/20 11:10 Dose: 25 mg Documented by: Dextrose/Lactated Ringer's (D5lr) 1,000 mls @ 83.333 mls/hr IV .Q12H [facility] Last Admin: 11/02/20 08:44 Dose: 83.333 mls/hr Documented by: Potassium Chloride (Potassium Chloride) 10 meq in 100 mls @ 100 mls/hr IV Q1H [facility] Stop: 11/02/20 18:59 Insulin Aspart (Insulin Aspart 300 Unit/3 Ml Pen) 1 - 9 unit SUBQ 0800 ,1200,1700,2100 [facility]; Protocol Last Admin: 11/02/20 11:15 Dose: 5 unit Documented by: Insulin Glargine (Insulin Glargine 300 Unit/3 Ml Pen) 35 unit SUBQ BID [facility] Last Admin: 11/02/20 08:44 Dose: Not Given Documented by: Lisinopril (Lisinopril 20 Mg Tablet) 40 mg PO DAILY [facility] Last Admin: 11/02/20 08:38 Dose: 40 mg Documented by: Ondansetron HCl (Ondansetron Odt 4 Mg Tablet) 4 mg TL Q6HR PRN PRN Reason: Nausea / Vomiting Ondansetron HCl (Ondansetron 4 Mg/2 Ml Vial) 4 mg IVP Q6HR PRN PRN Reason: Nausea / Vomiting Last Admin: 11/02/20 13:27 Dose: 4 mg Documented by: Oxycodone HCl (Oxycodone 5 Mg Tablet) 5 mg PO Q4HR PRN PRN Reason: Pain 5 to 7 Last Admin: 11/02/20 11:02 Dose: 5 mg Documented by: Paroxetine HCl (Paroxetine 10 Mg Tablet) 40 mg PO DAILY [facility] Last Admin: 11/02/20 08:37 Dose: 40 mg Documented by: Prochlorperazine Edisylate (Prochlorperazine 10 Mg/2 Ml Vial) 10 mg IVP Q6HR PRN PRN Reason: Nausea / Vomiting Last Admin: 11/02/20 11:09 Dose: 10 mg Documented by: Promethazine HCl (Promethazine 25 Mg/1 Ml Vial) 25 mg IM Q6HR PRN PRN Reason: Nausea / Vomiting Sodium Chloride (Sodium Chloride Flush 0.9% 10 Ml Syringe) 10 ml IVP PRN PRN PRN Reason: NEEDED PER PROVIDER ORDERS Sodium Chloride (Sodium Chloride Flush 0.9% 10 Ml Syringe) 10 ml IVP 0100,0900,1700 [facility] Last Admin: 11/02/20 08:08 Dose: 10 ml Documented by: Insulin Glargine [Lantus Solostar] 35 units SUBQ BID 05/28/17 Insulin Lispro [Humalog] 6 units SUBQ TIDWM 05/28/17 lisinopriL [Lisinopril] 40 mg PO DAILY 05/28/17 hydrOXYzine pamoate [Hydroxyzine Pamoate] 1 cap PO Q4H PRN 11/11/17 Apixaban [Eliquis] 5 mg PO BID 08/12/18 Chlorthalidone 25 mg PO DAILY 08/12/18 Fluticasone [Flonase] 1 sprays NEGRITA BID 08/12/18 PARoxetine HCL [Paroxetine HCl] 40 mg PO DAILY 08/12/18 Nitroglycerin [Nitrostat] 0.4 mg SL PRN 11/01/20 Nystatin [Nystop] 1 applic TOP BID 11/01/20 Omeprazole Magnesium 20 mg PO DAILY 11/01/20 metFORMIN [Glucophage] 500 mg PO BID 11/01/20 Objective - Vital Signs/Intake & Output Reviewed Vital Signs: Yes Vital Signs: Vital Signs x48h Temp Pulse Resp BP Pulse Ox 11/02/20 11:15 37.0 C 86 20 167/82 H 99 11/02/20 09:15 79 131/69 H 11/02/20 09:10 72 165/70 H 11/02/20 09:05 76 195/89 H 11/02/20 09:03 37.0 C 71 18 207/90 H 98 Intake & Output: Intake & Output 10/30/20 10/31/20 11/01/20 11/02/20 23:59 23:59 23:59 23:59 Intake Total 1250.5 2368.333 Balance 1250.5 2368.333 - Objective General Appearance: positive: No acute distress, Alert, Other (Laying back comfortably in bed.) Eyes Bilateral: positive: PERRL, EOMI ENT: positive: No signs of dehydration Neck: negative: Stiff neck Respiratory: positive: No respiratory distress, Other (quiet lung sounds in a large chest w diminished sounds at bases). negative: Wheezes, Rales, Rhonchi Cardiovascular: positive: Regular rate & rhythm. negative: Gallop/S4, Friction rub Abdomen: positive: Tenderness (mild at epigastrium), Abnml bowel sounds (hypoactive bowel sounds). negative: Guarding, Rebound Skin: positive: Warm, Dry Extremities: positive: Full ROM, No pedal edema Neurologic/Psychiatric: positive: Oriented x3, CN's nml (2-12), Motor nml, Mood/affect nml - Lab Results Fish Bones: 11/02/20 08:31 11/02/20 08:31 Other Labs: Lab Results x24hrs 11/02/20 11/02/20 11/02/20 Range/Units 11:07 08:31 08:31 WBC 10.8 (4.8-10.8) x10^3/uL RBC 4.16 L (4.20-5.40) 10^6/uL Hgb 11.9 L (12.0-16.0) g/dL Hct 35.6 L (37.0-47.0) % MCV 85.6 (81.0-99.0) fL MCH 28.6 (27.0-31.0) pg MCHC 33.4 (32.0-36.0) g/dL RDW 12.6 (12.0-15.0) % Plt Count 187 (130-450) 10^3/uL MPV 11.7 H (7.9-10.8) fL Neut # (Auto) 4.8 (1.5-6.6) 10^3/uL Lymph # (Auto) 4.8 H (1.5-3.5) 10^3/uL [place] # (Auto) 0.9 (0.0-1.0) 10^3/uL Eos # (Auto) 0.3 (0.0-0.7) 10^3/uL Baso # (Auto) 0.1 (0.0-0.1) 10^3/uL Absolute Nucleated RBC 0.00 x10^3/uL Nucleated RBC % 0.0 /100WBC Sodium 137 (135-145) mmol/L Potassium 2.9 L (3.5-5.0) mmol/L Chloride 100 L (101-111) mmol/L Carbon Dioxide 27 (21-32) mmol/L Anion Gap 10.0 (6-13) BUN 18 (6-20) mg/dL Creatinine 1.2 H (0.4-1.0) mg/dL Estimated GFR (MDRD) 45 L (>89) Glucose 140 H (70-100) mg/dL POC Whole Bld Glucose 247 H (70 - 100) mg/dL Estimat Average Glucose (70-100) mg/dL Hemoglobin A1c % (4.27-6.07) % Calcium 8.7 (8.5-10.3) mg/dL Urine Color Urine Clarity (CLEAR) Urine pH (5.0-7.5) PH Ur Specific [place] (1.002-1.030) Urine Protein (NEGATIVE) mg/dL Urine Glucose (UA) (NEGATIVE) mg/dL Urine Ketones (NEGATIVE) mg/dL Urine Occult Blood (NEGATIVE) Urine Nitrite (NEGATIVE) Urine Bilirubin (NEGATIVE) Urine Urobilinogen (NORMAL) E.U./dL Ur Leukocyte Esterase (NEGATIVE) Ur Microscopic Review Urine Culture Comments Nasal Adenovirus (PCR) Nasal B. parapertussis DNA (PCR) Nasal Coronavir 229E PCR Nasal Coronavir HKU1 PCR Nasal Coronavir NL63 PCR Nasal Coronavir OC43 PCR Nasal Enterovir/Rhinovir PCR Nasal Influenza B PCR Nasal Influenza A PCR Nasal Parainfluen 1 PCR Nasal Parainfluen 2 PCR Nasal Parainfluen 3 PCR Nasal Parainfluen 4 PCR Nasal RSV (PCR) Nasal B.pertussis DNA PCR Nasal C.pneumoniae (PCR) [place] Human Metapneumo PCR Nasal M.pneumoniae (PCR) Nasal SARS-CoV-2 (PCR) 11/02/20 11/02/20 11/01/20 Range/Units 07:51 05:40 20:54 WBC (4.8-10.8) x10^3/uL RBC (4.20-5.40) 10^6/uL Hgb (12.0-16.0) g/dL Hct (37.0-47.0) % MCV (81.0-99.0) fL MCH (27.0-31.0) pg MCHC (32.0-36.0) g/dL RDW (12.0-15.0) % Plt Count (130-450) 10^3/uL MPV (7.9-10.8) fL Neut # (Auto) (1.5-6.6) 10^3/uL Lymph # (Auto) (1.5-3.5) 10^3/uL [place] # (Auto) (0.0-1.0) 10^3/uL Eos # (Auto) (0.0-0.7) 10^3/uL Baso # (Auto) (0.0-0.1) 10^3/uL Absolute Nucleated RBC x10^3/uL Nucleated RBC % /100WBC Sodium (135-145) mmol/L Potassium (3.5-5.0) mmol/L Chloride (101-111) mmol/L Carbon Dioxide (21-32) mmol/L Anion Gap (6-13) BUN (6-20) mg/dL Creatinine (0.4-1.0) mg/dL Estimated GFR (MDRD) (>89) Glucose (70-100) mg/dL POC Whole Bld Glucose 84 73 (70 - 100) mg/dL Estimat Average Glucose 235 H (70-100) mg/dL Hemoglobin A1c % 9.8 H (4.27-6.07) % Calcium (8.5-10.3) mg/dL Urine Color Urine Clarity (CLEAR) Urine pH (5.0-7.5) PH Ur Specific [place] (1.002-1.030) Urine Protein (NEGATIVE) mg/dL Urine Glucose (UA) (NEGATIVE) mg/dL Urine Ketones (NEGATIVE) mg/dL Urine Occult Blood (NEGATIVE) Urine Nitrite (NEGATIVE) Urine Bilirubin (NEGATIVE) Urine Urobilinogen (NORMAL) E.U./dL Ur Leukocyte Esterase (NEGATIVE) Ur Microscopic Review Urine Culture Comments Nasal Adenovirus (PCR) Nasal B. parapertussis DNA (PCR) Nasal Coronavir 229E PCR Nasal Coronavir HKU1 PCR Nasal Coronavir NL63 PCR Nasal Coronavir OC43 PCR Nasal Enterovir/Rhinovir PCR Nasal Influenza B PCR Nasal Influenza A PCR Nasal Parainfluen 1 PCR Nasal Parainfluen 2 PCR Nasal Parainfluen 3 PCR Nasal Parainfluen 4 PCR Nasal RSV (PCR) Nasal B.pertussis DNA PCR Nasal C.pneumoniae (PCR) [facility] Human Metapneumo PCR Nasal M.pneumoniae (PCR) Nasal SARS-CoV-2 (PCR) 11/01/20 11/01/20 11/01/20 Range/Units 20:30 17:56 17:56 WBC (4.8-10.8) x10^3/uL RBC (4.20-5.40) 10^6/uL Hgb (12.0-16.0) g/dL Hct (37.0-47.0) % MCV (81.0-99.0) fL MCH (27.0-31.0) pg MCHC (32.0-36.0) g/dL RDW (12.0-15.0) % Plt Count (130-450) 10^3/uL MPV (7.9-10.8) fL Neut # (Auto) (1.5-6.6) 10^3/uL Lymph # (Auto) (1.5-3.5) 10^3/uL [place] # (Auto) (0.0-1.0) 10^3/uL Eos # (Auto) (0.0-0.7) 10^3/uL Baso # (Auto) (0.0-0.1) 10^3/uL Absolute Nucleated RBC x10^3/uL Nucleated RBC % /100WBC Sodium (135-145) mmol/L Potassium (3.5-5.0) mmol/L Chloride (101-111) mmol/L Carbon Dioxide (21-32) mmol/L Anion Gap (6-13) BUN (6-20) mg/dL Creatinine (0.4-1.0) mg/dL Estimated GFR (MDRD) (>89) Glucose (70-100) mg/dL POC Whole Bld Glucose 56 L* (70 - 100) mg/dL Estimat Average Glucose (70-100) mg/dL Hemoglobin A1c % (4.27-6.07) % Calcium (8.5-10.3) mg/dL Urine Color YELLOW Urine Clarity CLEAR (CLEAR) Urine pH 5.5 (5.0-7.5) PH Ur Specific [place] 1.020 (1.002-1.030) Urine Protein NEGATIVE (NEGATIVE) mg/dL Urine Glucose (UA) NEGATIVE (NEGATIVE) mg/dL Urine Ketones TRACE (NEGATIVE) mg/dL Urine Occult Blood NEGATIVE (NEGATIVE) Urine Nitrite NEGATIVE (NEGATIVE) Urine Bilirubin NEGATIVE (NEGATIVE) Urine Urobilinogen 0.2 (NORMAL) (NORMAL) E.U./dL Ur Leukocyte Esterase NEGATIVE (NEGATIVE) Ur Microscopic Review NOT INDICATED Urine Culture Comments NOT INDICATED Nasal Adenovirus (PCR) NOT DETECTED Nasal B. parapertussis DNA (PCR) NOT DETECTED Nasal Coronavir 229E PCR NOT DETECTED Nasal Coronavir HKU1 PCR NOT DETECTED Nasal Coronavir NL63 PCR NOT DETECTED Nasal Coronavir OC43 PCR NOT DETECTED Nasal Enterovir/Rhinovir PCR NOT DETECTED Nasal Influenza B PCR NOT DETECTED Nasal Influenza A PCR NOT DETECTED Nasal Parainfluen 1 PCR NOT DETECTED Nasal Parainfluen 2 PCR NOT DETECTED Nasal Parainfluen 3 PCR NOT DETECTED Nasal Parainfluen 4 PCR NOT DETECTED Nasal RSV (PCR) NOT DETECTED Nasal B.pertussis DNA PCR NOT DETECTED Nasal C.pneumoniae (PCR) NOT DETECTED [facility] Human Metapneumo PCR NOT DETECTED Nasal M.pneumoniae (PCR) NOT DETECTED Nasal SARS-CoV-2 (PCR) NOT DETECTED Assessment/Plan - Problem List (1) Epigastric abdominal pain Impression: with intractable nause And vomiting. Differential diagnosis would include gastric disease such as gastritis, duodenal ulcer. She could also have biliary dyskinesia secondary to gallbladder sludge. She could also have hyperemesis syndrome from her marijuana. Overnight , she says that her pain has definitely improved. It is still mild in the epigastrium but does not radiate to her shoulders anymore. Still with significant nausea even on clear liquids. Had one episode of emesis overnight. Clear liquid breakfast induced nausea but no emesis. Plan: Observation status to continue per Continue: Aggressive antiemesis medication, Small doses of opioids as needed, IV fluids for hydration Unfortunately we cannot do an MRCP Or CCK HIDA on the weekend. I had thought that she would improve overnight and would be able to be discharged today. However still with enough nausea vomiting that she cannot keep clear liquids down. Plan to keep her overnight again. Advance diet as needed. Obtain CCK HIDA and MRCP tomorrow. Proton pump inhibitors IV for 24 hours Clear liquids Outpatient EGD if the workup for biliary cause is negative. (2) Hypokalemia still present Conclusion/Plan: order IV rider and recheck in am (3) Type 1 diabetes mellitus on insulin therapy Conclusion/Plan: In the evening yesterday she was 56, 73, and back down to 56 before bedtime. This morning she is 84 and by lunchtime she is 247. She is on her Lantus 35 units subcu twice daily. Plus sliding scale insulin. Plan: Continue current regimen. If she is consistently high by later this afternoon, may add 5 units nutritional dosing. Plus continue the sliding scale (4) Chronic kidney disease in type 1 diabetes mellitus Conclusion/Plan: Review of her labs show her to be with chronic elevated BUN and creatinine. Difficult to say if she has acute exacerbation right now but I think not. She has she has better labs on admission than she did the day before BUN 26 >>18 Creatinine 1.1>>1.2 Continue to hydrate Recheck tomorrow morning's labs Avoid nephrotoxic agents Qualifiers: Chronic kidney disease stage: stage 3 (moderate) (5) Generalized anxiety disorder Conclusion/Plan: Hydroxyzine pamoate 25 mg is every 4 hours as needed. Paxil is 40 mg daily. That will be resumed as long as she can tolerate p.o. She has been doing well. Anxiety is not overwhelming. (6) Atrial fibrillation Conclusion/Plan: She appears to have a regular rhythm on EKG. But no discrete P wave. Troponins are better on admission than the day before. We will continue anticoagulation while she is in the hospital. She is not on a rate lowering drug. Qualifiers: Atrial fibrillation type: permanent Qualified Code(s): I48.21 - Permanent atrial fibrillation
[2020-11-02] MEDS: POTASSIUM CHLOR 10 MEQ/100 ML 10 MEQ/100 ML BAG IV SCH ×4 (14:37→20:05)
[2020-11-02] MEDS: ACETAMINOPHEN 325 MG TABLET PO PRN (14:37)
--- NOTE | 2020-11-02 15:38 | PROVIDER PROGRESS NOTE ---
Subjective - Prog Note Date Prog Note Date: 11/02/20 Prog Note Time: 15:38 - Subjective Pt reports feeling: Improved Subjective: We will nauseated. Ate clear liquids this morning. Trying to assess her to see if he could advance her to lunchtime regular diet but she could not. Epigastric pain was waxing and waning but near Fabrice gone Current Medications - Current Medications Current Medications: Active Medications Acetaminophen (Acetaminophen 325 Mg Tablet) 650 mg PO Q4HR PRN PRN Reason: Pain 1 to 4 Last Admin: 11/02/20 14:37 Dose: 650 mg Documented by: Apixaban (Apixaban 5 Mg Tablet) 5 mg PO BID [facility] Last Admin: 11/02/20 08:37 Dose: 5 mg Documented by: Hydroxyzine Pamoate (Hydroxyzine Pamoate 25 Mg Capsule) 25 mg PO Q4H PRN PRN Reason: Anxiety Last Admin: 11/02/20 11:10 Dose: 25 mg Documented by: Dextrose/Lactated Ringer's (D5lr) 1,000 mls @ 83.333 mls/hr IV .Q12H [facility] Last Infusion: 11/02/20 18:04 Dose: 83.333 mls/hr Documented by: Potassium Chloride (Potassium Chloride) 10 meq in 100 mls @ 100 mls/hr IV Q1H [facility] Stop: 11/02/20 18:59 Last Admin: 11/02/20 18:08 Dose: 75 mls/hr Documented by: Insulin Aspart (Insulin Aspart 300 Unit/3 Ml Pen) 1 - 9 unit SUBQ 0800,1200,1700,2100 [facility]; Protocol Last Admin: 11/02/20 17:11 Dose: 7 unit Documented by: Insulin Glargine (Insulin Glargine 300 Unit/3 Ml Pen) 35 unit SUBQ BID [facility] Last Admin: 11/02/20 08:44 Dose: Not Given Documented by: Lisinopril (Lisinopril 20 Mg Tablet) 40 mg PO DAILY [facility] Last Admin: 11/02/20 08:38 Dose: 40 mg Documented by: Ondansetron HCl (Ondansetron Odt 4 Mg Tablet) 4 mg TL Q6HR PRN PRN Reason: Nausea / Vomiting Ondansetron HCl (Ondansetron 4 Mg/2 Ml Vial) 4 mg IVP Q6HR PRN PRN Reason: Nausea / Vomiting Last Admin: 11/02/20 13:27 Dose: 4 mg Documented by: Oxycodone HCl (Oxycodone 5 Mg Tablet) 5 mg PO Q4HR PRN PRN Reason: Pain 5 to 7 Last Admin: 11/02/20 15:37 Dose: 5 mg Documented by: Paroxetine HCl (Paroxetine 10 Mg Tablet) 40 mg PO DAILY [facility] Last Admin: 11/02/20 08:37 Dose: 40 mg Documented by: Prochlorperazine Edisylate (Prochlorperazine 10 Mg/2 Ml Vial) 10 mg IVP Q6HR PRN PRN Reason: Nausea / Vomiting Last Admin: 11/02/20 17:05 Dose: 10 mg Documented by: Promethazine HCl (Promethazine 25 Mg/1 Ml Vial) 25 mg IM Q6HR PRN PRN Reason: Nausea / Vomiting Sodium Chloride (Sodium Chloride Flush 0.9% 10 Ml Syringe) 10 ml IVP PRN PRN PRN Reason: NEEDED PER PROVIDER ORDERS Sodium Chloride (Sodium Chloride Flush 0.9% 10 Ml Syringe) 10 ml IVP 0100,0900,1700 [facility] Last Admin: 11/02/20 17:05 Dose: 10 ml Documented by: Insulin Glargine [Lantus Solostar] 35 units SUBQ BID 05/28/17 Insulin Lispro [Humalog] 6 units SUBQ TIDWM 05/28/17 lisinopriL [Lisinopril] 40 mg PO DAILY 05/28/17 hydrOXYzine pamoate [Hydroxyzine Pamoate] 1 cap PO Q4H PRN 11/11/17 Apixaban [Eliquis] 5 mg PO BID 08/12/18 Chlorthalidone 25 mg PO DAILY 08/12/18 Fluticasone [Flonase] 1 sprays NEGRITA BID 08/12/18 PARoxetine HCL [Paroxetine HCl] 40 mg PO DAILY 08/12/18 Nitroglycerin [Nitrostat] 0.4 mg SL PRN 11/01/20 Nystatin [Nystop] 1 applic TOP BID 11/01/20 Omeprazole Magnesium 20 mg PO DAILY 11/01/20 metFORMIN [Glucophage] 500 mg PO BID 11/01/20 Objective - Vital Signs/Intake & Output Reviewed Vital Signs: Yes Vital Signs: Vital Signs x48h Temp Pulse Resp BP Pulse Ox 11/02/20 11:15 37.0 C 86 20 167/82 H 99 11/02/20 09:15 79 131/69 H 11/02/20 09:10 72 165/70 H 11/02/20 09:05 76 195/89 H 11/02/20 09:03 37.0 C 71 18 207/90 H 98 Intake & Output: Intake & Output 10/30/20 10/31/20 11/01/20 11/02/20 23:59 23:59 23:59 23:59 Intake Total 1250.5 2368.333 Balance 1250.5 2368.333 - Objective General Appearance: positive: Alert, Mild distress (From her nausea), Other (Morbidly obese female who is comfortable sitting in bed. Legs are semicrossed in front of her, she leans forward in the bed.) Eyes Bilateral: positive: PERRL, EOMI ENT: positive: No signs of dehydration Neck: negative: Stiff neck Respiratory: positive: No respiratory distress. negative: Wheezes, Rales, Rhonchi Cardiovascular: positive: Regular rate & rhythm. negative: Gallop/S4, Friction rub Abdomen: positive: Nml bowel sounds, No distention, Tenderness (Mild and epigastric.), Other (Large, large abdominal pannus). negative: Guarding, Rebound Skin: positive: Warm, Dry Extremities: positive: Full ROM, No pedal edema Neurologic/Psychiatric: positive: Oriented x3, CN's nml (2-12), Motor nml. negative: Mood/affect nml (Very anxious. Can get almost tearful with it.) - Lab Results Fish Bones: 11/02/20 08:31 11/02/20 08:31 Other Labs: Lab Results x24hrs 11/02/20 11/02/20 11/02/20 Range/Units 11:07 08:31 08:31 WBC 10.8 (4.8-10.8) x10^3/uL RBC 4.16 L (4.20-5.40) 10^6/uL Hgb 11.9 L (12.0-16.0) g/dL Hct 35.6 L (37.0-47.0) % MCV 85.6 (81.0-99.0) fL MCH 28.6 (27.0-31.0) pg MCHC 33.4 (32.0-36.0) g/dL RDW 12.6 (12.0-15.0) % Plt Count 187 (130-450) 10^3/uL MPV 11.7 H (7.9-10.8) fL Neut # (Auto) 4.8 (1.5-6.6) 10^3/uL Lymph # (Auto) 4.8 H (1.5-3.5) 10^3/uL Pepin # (Auto) 0.9 (0.0-1.0) 10^3/uL Eos # (Auto) 0.3 (0.0-0.7) 10^3/uL Baso # (Auto) 0.1 (0.0-0.1) 10^3/uL Absolute Nucleated RBC 0.00 x10^3/uL Nucleated RBC % 0.0 /100WBC Sodium 137 (135-145) mmol/L Potassium 2.9 L (3.5-5.0) mmol/L Chloride 100 L (101-111) mmol/L Carbon Dioxide 27 (21-32) mmol/L Anion Gap 10.0 (6-13) BUN 18 (6-20) mg/dL Creatinine 1.2 H (0.4-1.0) mg/dL Estimated GFR (MDRD) 45 L (>89) Glucose 140 H (70-100) mg/dL POC Whole Bld Glucose 247 H (70 - 100) mg/dL Estimat Average Glucose (70-100) mg/dL Hemoglobin A1c % (4.27-6.07) % Calcium 8.7 (8.5-10.3) mg/dL Urine Color Urine Clarity (CLEAR) Urine pH (5.0-7.5) PH Ur Specific [place] (1.002-1.030) Urine Protein (NEGATIVE) mg/dL Urine Glucose (UA) (NEGATIVE) mg/dL Urine Ketones (NEGATIVE) mg/dL Urine Occult Blood (NEGATIVE) Urine Nitrite (NEGATIVE) Urine Bilirubin (NEGATIVE) Urine Urobilinogen (NORMAL) E.U./dL Ur Leukocyte Esterase (NEGATIVE) Ur Microscopic Review Urine Culture Comments Nasal Adenovirus (PCR) Nasal B. parapertussis DNA (PCR) Nasal Coronavir 229E PCR Nasal Coronavir HKU1 PCR Nasal Coronavir NL63 PCR Nasal Coronavir OC43 PCR Nasal Enterovir/Rhinovir PCR Nasal Influenza B PCR Nasal Influenza A PCR Nasal Parainfluen 1 PCR Nasal Parainfluen 2 PCR Nasal Parainfluen 3 PCR Nasal Parainfluen 4 PCR Nasal RSV (PCR) Nasal B.pertussis DNA PCR Nasal C.pneumoniae (PCR) [facility] Human Metapneumo PCR Nasal M.pneumoniae (PCR) Nasal SARS-CoV-2 (PCR) 11/02/20 11/02/20 11/01/20 Range/Units 07:51 05:40 20:54 WBC (4.8-10.8) x10^3/uL RBC (4.20-5.40) 10^6/uL Hgb (12.0-16.0) g/dL Hct (37.0-47.0) % MCV (81.0-99.0) fL MCH (27.0-31.0) pg MCHC (32.0-36.0) g/dL RDW (12.0-15.0) % Plt Count (130-450) 10^3/uL MPV (7.9-10.8) fL Neut # (Auto) (1.5-6.6) 10^3/uL Lymph # (Auto) (1.5-3.5) 10^3/uL Pepin # (Auto) (0.0-1.0) 10^3/uL Eos # (Auto) (0.0-0.7) 10^3/uL Baso # (Auto) (0.0-0.1) 10^3/uL Absolute Nucleated RBC x10^3/uL Nucleated RBC % /100WBC Sodium (135-145) mmol/L Potassium (3.5-5.0) mmol/L Chloride (101-111) mmol/L Carbon Dioxide (21-32) mmol/L Anion Gap (6-13) BUN (6-20) mg/dL Creatinine (0.4-1.0) mg/dL Estimated GFR (MDRD) (>89) Glucose (70-100) mg/dL POC Whole Bld Glucose 84 73 (70 - 100) mg/dL Estimat Average Glucose 235 H (70-100) mg/dL Hemoglobin A1c % 9.8 H (4.27-6.07) % Calcium (8.5-10.3) mg/dL Urine Color Urine Clarity (CLEAR) Urine pH (5.0-7.5) PH Ur Specific [place] (1.002-1.030) Urine Protein (NEGATIVE) mg/dL Urine Glucose (UA) (NEGATIVE) mg/dL Urine Ketones (NEGATIVE) mg/dL Urine Occult Blood (NEGATIVE) Urine Nitrite (NEGATIVE) Urine Bilirubin (NEGATIVE) Urine Urobilinogen (NORMAL) E.U./dL Ur Leukocyte Esterase (NEGATIVE) Ur Microscopic Review Urine Culture Comments Nasal Adenovirus (PCR) Nasal B. parapertussis DNA (PCR) Nasal Coronavir 229E PCR Nasal Coronavir HKU1 PCR Nasal Coronavir NL63 PCR Nasal Coronavir OC43 PCR Nasal Enterovir/Rhinovir PCR Nasal Influenza B PCR Nasal Influenza A PCR Nasal Parainfluen 1 PCR Nasal Parainfluen 2 PCR Nasal Parainfluen 3 PCR Nasal Parainfluen 4 PCR Nasal RSV (PCR) Nasal B.pertussis DNA PCR Nasal C.pneumoniae (PCR) [place] Human Metapneumo PCR Nasal M.pneumoniae (PCR) Nasal SARS-CoV-2 (PCR) 11/01/20 11/01/20 11/01/20 Range/Units 20:30 17:56 17:56 WBC (4.8-10.8) x10^3/uL RBC (4.20-5.40) 10^6/uL Hgb (12.0-16.0) g/dL Hct (37.0-47.0) % MCV (81.0-99.0) fL MCH (27.0-31.0) pg MCHC (32.0-36.0) g/dL RDW (12.0-15.0) % Plt Count (130-450) 10^3/uL MPV (7.9-10.8) fL Neut # (Auto) (1.5-6.6) 10^3/uL Lymph # (Auto) (1.5-3.5) 10^3/uL Pepin # (Auto) (0.0-1.0) 10^3/uL Eos # (Auto) (0.0-0.7) 10^3/uL Baso # (Auto) (0.0-0.1) 10^3/uL Absolute Nucleated RBC x10^3/uL Nucleated RBC % /100WBC Sodium (135-145) mmol/L Potassium (3.5-5.0) mmol/L Chloride (101-111) mmol/L Carbon Dioxide (21-32) mmol/L Anion Gap (6-13) BUN (6-20) mg/dL Creatinine (0.4-1.0) mg/dL Estimated GFR (MDRD) (>89) Glucose (70-100) mg/dL POC Whole Bld Glucose 56 L* (70 - 100) mg/dL Estimat Average Glucose (70-100) mg/dL Hemoglobin A1c % (4.27-6.07) % Calcium (8.5-10.3) mg/dL Urine Color YELLOW Urine Clarity CLEAR (CLEAR) Urine pH 5.5 (5.0-7.5) PH Ur Specific [place] 1.020 (1.002-1.030) Urine Protein NEGATIVE (NEGATIVE) mg/dL Urine Glucose (UA) NEGATIVE (NEGATIVE) mg/dL Urine Ketones TRACE (NEGATIVE) mg/dL Urine Occult Blood NEGATIVE (NEGATIVE) Urine Nitrite NEGATIVE (NEGATIVE) Urine Bilirubin NEGATIVE (NEGATIVE) Urine Urobilinogen 0.2 (NORMAL) (NORMAL) E.U./dL Ur Leukocyte Esterase NEGATIVE (NEGATIVE) Ur Microscopic Review NOT INDICATED Urine Culture Comments NOT INDICATED Nasal Adenovirus (PCR) NOT DETECTED Nasal B. parapertussis DNA (PCR) NOT DETECTED Nasal Coronavir 229E PCR NOT DETECTED Nasal Coronavir HKU1 PCR NOT DETECTED Nasal Coronavir NL63 PCR NOT DETECTED Nasal Coronavir OC43 PCR NOT DETECTED Nasal Enterovir/Rhinovir PCR NOT DETECTED Nasal Influenza B PCR NOT DETECTED Nasal Influenza A PCR NOT DETECTED Nasal Parainfluen 1 PCR NOT DETECTED Nasal Parainfluen 2 PCR NOT DETECTED Nasal Parainfluen 3 PCR NOT DETECTED Nasal Parainfluen 4 PCR NOT DETECTED Nasal RSV (PCR) NOT DETECTED Nasal B.pertussis DNA PCR NOT DETECTED Nasal C.pneumoniae (PCR) NOT DETECTED [place] Human Metapneumo PCR NOT DETECTED Nasal M.pneumoniae (PCR) NOT DETECTED Nasal SARS-CoV-2 (PCR) NOT DETECTED ABX Reporting Has patient been on IV antibiotics over the past 48 hours?: No
[2020-11-03] MEDS: SODIUM CHLORIDE FLUSH 0.9% 10 ML SYRINGE IVP SCH ×3 (00:21→15:46)
[2020-11-03] MEDS: oxyCODONE 5 MG TABLET PO PRN ×3 (00:24→16:02)
[2020-11-03] MEDS: ACETAMINOPHEN 325 MG TABLET PO PRN ×2 (00:24→16:02)
[2020-11-03] MEDS: ONDANSETRON 4 MG/2 ML VIAL IVP PRN (03:47)
[2020-11-03 05:31] LABS: BASOPHILS # (AUTO) 0.1 10^3/uL (0.0-0.1); BASOPHILS % (AUTO) 0.6 %; EOSINOPHILS # (AUTO) 0.5 10^3/uL (0.0-0.7); EOSINOPHILS % (AUTO) 5.3 %; HCT - HEMATOCRIT 32.5 % (37.0-47.0); HGB - HEMOGLOBIN 10.8 g/dL (12.0-16.0); LYMPHOCYTES # (AUTO) 3.8 10^3/uL (1.5-3.5); LYMPHOCYTES % (AUTO) 42.2 %; MEAN CORPUSCULAR HEMOGLOBIN 28.4 pg (27.0-31.0); MEAN CORPUSCULAR HGB CONC 33.2 g/dL (32.0-36.0); MEAN CORPUSCULAR VOLUME 85.5 fL (81.0-99.0); MEAN PLATELET VOLUME 12.5 fL (7.9-10.8); MONOCYTES # (AUTO) 0.8 10^3/uL (0.0-1.0); MONOCYTES % (AUTO) 8.6 %; NEUTROPHILS # (AUTO) 3.8 10^3/uL (1.5-6.6); NEUTROPHILS % (AUTO) 42.7 %; PLT - PLATELET COUNT 171 10^3/uL (130-450); RED CELL DISTRIBUTION WIDTH 12.8 % (12.0-15.0); WHITE BLOOD COUNT 8.9 x10^3/uL (4.8-10.8)
[2020-11-03 05:42] LABS: CREATININE 1.2 mg/dL (0.4-1.0); POTASSIUM 3.2 mmol/L (3.5-5.0)
[2020-11-03] MEDS: PROCHLORPERAZINE 10 MG/2 ML VIAL IVP PRN (06:43)
[2020-11-03] MEDS: POTASSIUM CHLOR 10 MEQ/100 ML 10 MEQ/100 ML BAG IV SCH ×4 (06:44→11:43)
[2020-11-03] MEDS: DEXTROSE 5%-LACTATED RINGERS 1,000 ML IV SCH ×2 (07:44→20:49)
[2020-11-03] MEDS ORDERED: INSULIN REGULAR HUMAN 300 UNIT/3 ML VIAL SUBQ SCH (08:00)
[2020-11-03] MEDS ORDERED: MORPHINE 2 MG/ML CARPUJECT IVP STA (08:17)
[2020-11-03] MEDS: hydrOXYzine PAMOATE 25 MG CAPSULE PO PRN ×2 (09:16→18:38)
[2020-11-03] MEDS: lisinopriL 20 MG TABLET PO SCH (09:16)
[2020-11-03] MEDS: APIXABAN 5 MG TABLET PO SCH ×2 (09:16→20:47)
[2020-11-03] MEDS: INSULIN GLARGINE 300 UNIT/3 ML PEN SUBQ SCH ×2 (09:17→20:48)
[2020-11-03] MEDS: PARoxetine 10 MG TABLET PO SCH (09:20)
[2020-11-03] MEDS ORDERED: GADOBUTROL 15 MMOL/15 ML VIAL ONE (11:07)
[2020-11-03] MEDS ORDERED: LORazepam 2 MG/ML VIAL IVP STA (11:25)
[2020-11-03] MEDS: INSULIN ASPART 300 UNIT/3 ML PEN SUBQ SCH ×3 (12:53→20:48)
--- NOTE | 2020-11-03 14:09 | MRI Report ---
PROCEDURE: MRCP W/O INDICATIONS: SLUDGE IN GB, WITH CLASSIC EPIGASTRIC PAIN TECHNIQUE: Coronal ultra fast SE through the abdomen, axial 2-D spoiled GE in- and [id number], and breath-hold T2 FSE with fat saturation through the biliary system and pancreas. Oblique coronal and axial thin- slice ultra fast SE, radial thick-slab ultra fast SE centered on the extrahepatic bile ducts. COMPARISON: CT abdomen and pelvis without IV contrast 11/01/2020. CT pulmonary angiogram 10/31/2020. C T KUB 07/14/2020. FINDINGS: Image quality: Fair. Multiple sequences degrade by artifact. Pancreas and biliary system: Intra- and extra-hepatic biliary ducts are non dilated. CBD measures 0. 5 cm. Pancreas is normal in morphology, without adjacent soft tissue edema. Pancreatic duct is shade l in caliber, without developmental anomalies. Gallbladder is not significantly distended. No defini te intraluminal filling defect. Other solid organs: Liver and spleen are normal in size. Hepatic steatosis. No adrenal nodules. Bot h kidneys are normal in size, without hydronephrosis. T2 hyperintense unilocular cysts in the superio r pole the left kidney measuring 2.7 cm and 2.5 cm. Nodes and vessels: No retroperitoneal or mesenteric adenopathy by size criteria. Aorta and inferior vena cava are normal in size. Bowel and peritoneum: Unenhanced bowel loops are normal in caliber. No free fluid. Lung bases: No basal pleural effusions. Heart size is normal. Bones and soft tissues: No ventral hernias. Bone marrow is of normal overall signal. IMPRESSION: Image quality is somewhat dictated by artifact. 1. Gallbladder is not significantly distended. No pericholecystic fluid demonstrated. No intraluminal defect identified. The high density material on the prior CT could also be due to vicarious excretio n of IV contrast. Consider further evaluation for gallbladder sludge or stones with gallbladder ultra sound. 2. No biliary or pancreatic ductal dilatation. 3. Hepatic steatosis. Reviewed by: Lyle Robertson MD on 11/03/2020 2:07 PM PDT Approved by: Lyle Robertson MD on 11/03/2020 2:07 PM PDT Station ID: [id number]
--- NOTE | 2020-11-03 18:08 | PROVIDER PROGRESS NOTE ---
Subjective - Subjective Pt reports feeling: Improved Subjective: she's hungry and wants to eat real food. The nausea/vomitting/epigastric pain is gone. MRCP was difficult to accomplish. she just doesn't want to lay down. So I fear the CCK HIDA tomorrow will be the same Current Medications - Current Medications Current Medications: Active Medications Acetaminophen (Acetaminophen 325 Mg Tablet) 650 mg PO Q4HR PRN PRN Reason: Pain 1 to 4 Last Admin: 11/04/20 08:18 Dose: 650 mg Documented by: Apixaban (Apixaban 5 Mg Tablet) 5 mg PO BID [facility] Last Admin: 11/04/20 08:18 Dose: 5 mg Documented by: Hydralazine HCl (Hydralazine Inj 20 Mg/Ml Vial) 10 mg IVP Q6H PRN PRN Reason: PER PHYSICIAN ORDER Hydroxyzine Pamoate (Hydroxyzine Pamoate 25 Mg Capsule) 25 mg PO Q4H PRN PRN Reason: Anxiety Last Admin: 11/04/20 08:16 Dose: 25 mg Documented by: Dextrose/Lactated Ringer's ([id number]) 1,000 mls @ 83.333 mls/hr IV .Q12H [facility] Last Admin: 11/04/20 08:23 Dose: 83.333 mls/hr Documented by: Insulin Aspart (Insulin Aspart 300 Unit/3 Ml Pen) 1 - 9 unit SUBQ 0800,1200,1700,2100 [facility]; Protocol Last Admin: 11/04/20 08:15 Dose: 1 unit Documented by: Insulin Glargine (Insulin Glargine 300 Unit/3 Ml Pen) 35 unit SUBQ BID [facility] Last Admin: 11/04/20 08:20 Dose: 35 unit Documented by: Lisinopril (Lisinopril 20 Mg Tablet) 40 mg PO DAILY [facility] Last Admin: 11/04/20 08:17 Dose: 40 mg Documented by: Ondansetron HCl (Ondansetron Odt 4 Mg Tablet) 4 mg TL Q6HR PRN PRN Reason: Nausea / Vomiting Ondansetron HCl (Ondansetron 4 Mg/2 Ml Vial) 4 mg IVP Q6HR PRN PRN Reason: Nausea / Vomiting Last Admin: 11/04/20 08:18 Dose: 4 mg Documented by: Oxycodone HCl (Oxycodone 5 Mg Tablet) 5 mg PO Q4HR PRN PRN Reason: Pain 5 to 7 Last Admin: 11/04/20 08:16 Dose: 5 mg Documented by: Paroxetine HCl (Paroxetine 10 Mg Tablet) 40 mg PO DAILY [facility] Last Admin: 11/04/20 08:19 Dose: 40 mg Documented by: Prochlorperazine Edisylate (Prochlorperazine 10 Mg/2 Ml Vial) 10 mg IVP Q6HR PRN PRN Reason: Nausea / Vomiting Last Admin: 11/04/20 05:50 Dose: 10 mg Documented by: Promethazine HCl (Promethazine 25 Mg/1 Ml Vial) 25 mg IM Q6HR PRN PRN Reason: Nausea / Vomiting Sodium Chloride (Sodium Chloride Flush 0.9% 10 Ml Syringe) 10 ml IVP PRN PRN PRN Reason: NEEDED PER PROVIDER ORDERS Last Admin: 11/02/20 19:32 Dose: 10 ml Documented by: Sodium Chloride (Sodium Chloride Flush 0.9% 10 Ml Syringe) 10 ml IVP 0100,0900,1700 [facility] Last Admin: 11/04/20 08:22 Dose: 10 ml Documented by: Insulin Glargine [Lantus Solostar] 35 units SUBQ BID 05/28/17 Insulin Lispro [Humalog] 6 units SUBQ TIDWM 05/28/17 lisinopriL [Lisinopril] 40 mg PO DAILY 05/28/17 hydrOXYzine pamoate [Hydroxyzine Pamoate] 1 cap PO Q4H PRN 11/11/17 Apixaban [Eliquis] 5 mg PO BID 08/12/18 Chlorthalidone 25 mg PO DAILY 08/12/18 Fluticasone [Flonase] 1 sprays NEGRITA BID 08/12/18 PARoxetine HCL [Paroxetine HCl] 40 mg PO DAILY 08/12/18 Nitroglycerin [Nitrostat] 0.4 mg SL PRN 11/01/20 Nystatin [Nystop] 1 applic TOP BID 11/01/20 Omeprazole Magnesium 20 mg PO DAILY 11/01/20 metFORMIN [Glucophage] 500 mg PO BID 11/01/20 Objective - Vital Signs/Intake & Output Reviewed Vital Signs: Yes Vital Signs: Vital Signs x48h Temp Pulse Resp BP BP Pulse Ox 11/03/20 17:45 153/63 H 11/03/20 15:37 36.6 C 69 20 180/83 H 172/63 H 97 11/03/20 14:33 166/81 H 11/03/20 12:00 37 C 81 20 98 Intake & Output: Intake & Output 10/31/20 11/01/20 11/02/20 11/03/20 23:59 23:59 23:59 23:59 Intake Total 1250.5 4668.333 2787.495 Balance 1250.5 4668.333 2787.495 - Objective General Appearance: positive: No acute distress, Alert, Other (very anxious morbidly obese white female, sitting up in room chair, tearful about the MRCP. Claustrophobia was not a problem before so needed ativan 1 mg this time) Eyes Bilateral: positive: PERRL, EOMI ENT: positive: No signs of dehydration Neck: positive: No JVD Respiratory: positive: No respiratory distress. negative: Wheezes, Rales, Rhonchi Cardiovascular: positive: Regular rate & rhythm. negative: Gallop/S4, Friction rub Abdomen: positive: Non-tender, Nml bowel sounds, No distention, Other (very l arge abd panus, difficult to assess for organomegaly) Skin: positive: Warm, Dry Extremities: positive: Full ROM, No pedal edema Neurologic/Psychiatric: positive: Oriented x3, CN's nml (2-12), Motor nml - Lab Results Fish Bones: 11/04/20 09:10 11/04/20 09:10 Other Labs: Lab Results x24hrs 11/03/20 11/03/20 11/03/20 Range/Units 16:37 12:37 07:44 WBC (4.8-10.8) x10^3/uL RBC (4.20-5.40) 10^6/uL Hgb (12.0-16.0) g/dL Hct (37.0-47.0) % MCV (81.0-99.0) fL MCH (27.0-31.0) pg MCHC (32.0-36.0) g/dL RDW (12.0-15.0) % Plt Count (130-450) 10^3/uL MPV (7.9-10.8) fL Neut # (Auto) (1.5-6.6) 10^3/uL Lymph # (Auto) (1.5-3.5) 10^3/uL [place] # (Auto) (0.0-1.0) 10^3/uL Eos # (Auto) (0.0-0.7) 10^3/uL Baso # (Auto) (0.0-0.1) 10^3/uL Absolute Nucleated RBC x10^3/uL Nucleated RBC % /100WBC Sodium (135-145) mmol/L Potassium (3.5-5.0) mmol/L Chloride (101-111) mmol/L Carbon Dioxide (21-32) mmol/L Anion Gap (6-13) BUN (6-20) mg/dL Creatinine (0.4-1.0) mg/dL Estimated GFR (MDRD) (>89) Glucose (70-100) mg/dL POC Whole Bld Glucose 289 H 141 H 128 H (70 - 100) mg/dL Calcium (8.5-10.3) mg/dL 11/03/20 11/03/20 11/02/20 Range/Units 04:57 04:57 20:25 WBC 8.9 (4.8-10.8) x10^3/uL RBC 3.80 L (4.20-5.40) 10^6/uL Hgb 10.8 L (12.0-16.0) g/dL Hct 32.5 L (37.0-47.0) % MCV 85.5 (81.0-99.0) fL MCH 28.4 (27.0-31.0) pg MCHC 33.2 (32.0-36.0) g/dL RDW 12.8 (12.0-15.0) % Plt Count 171 (130-450) 10^3/uL MPV 12.5 H (7.9-10.8) fL Neut # (Auto) 3.8 (1.5-6.6) 10^3/uL Lymph # (Auto) 3.8 H (1.5-3.5) 10^3/uL [place] # (Auto) 0.8 (0.0-1.0) 10^3/uL Eos # (Auto) 0.5 (0.0-0.7) 10^3/uL Baso # (Auto) 0.1 (0.0-0.1) 10^3/uL Absolute Nucleated RBC 0.00 x10^3/uL Nucleated RBC % 0.0 /100WBC Sodium 140 (135-145) mmol/L Potassium 3.2 L (3.5-5.0) mmol/L Chloride 104 (101-111) mmol/L Carbon Dioxide 27 (21-32) mmol/L Anion Gap 9.0 (6-13) BUN 13 (6-20) mg/dL Creatinine 1.2 H (0.4-1.0) mg/dL Estimated GFR (MDRD) 45 L (>89) Glucose 135 H (70-100) mg/dL POC Whole Bld Glucose 133 H (70 - 100) mg/dL Calcium 9.0 (8.5-10.3) mg/dL Assessment/Plan - Problem List (1) Epigastric abdominal pain Impression: with intractable nause And vomiting. Differential diagnosis would include gastric disease such as gastritis, duodenal ulcer. She could also have biliary dyskinesia secondary to gallbladder sludge. She could also have hyperemesis syndrome from her marijuana. After the first night, she says that her pain has definitely improved. It is still mild in the epigastrium but does not radiate to her shoulders anymore. Still had significant nausea even on clear liquids. Had one episode of emesis overnight. Clear liquid breakfast induced nausea but no emesis. then as the second day progressed stayed on clear liquids with nausea but no severe emesis. this morning had MRCP and no significant abnormalities but now they recommend US. She could not get the CCK HIDA since reagent needed to be ordered today for tomorrow. The patient is hungry and wanted to eat even before the MRCP. Plan: Observation status to continue per Continue: Aggressive antiemesis medication, Small doses of opioids as needed, IV fluids for hydration Unfortunately we cannot do an MRCP Or CCK HIDA on the weekend. I had thought that she would improve overnight and would be able to be discharged Tuesday. However still with enough nausea vomiting yesterday that she could not keep clear liquids down. Kept in the hospital last night and tonight. Advance diet as needed. Obtain CCK HIDA tomorrow. Proton pump inhibitors IV Clear liquids advance to regular diet Outpatient EGD if the workup for biliary cause is negative. (2) Hypokalemia still present Conclusion/Plan: order IV rider and recheck in am (3) Type 1 diabetes mellitus on insulin therapy Conclusion/Plan: In the evening yesterday she was 56, 73, and back down to 56 before bedtime. This morning she is 84 and by lunchtime she is 247. She is on her Lantus 35 units subcu twice daily. Plus sliding scale insulin. Plan: Continue current regimen. If she is consistently high by later this afternoon, may add 5 units nutritional dosing. Plus continue the sliding scale (4) Chronic kidney disease in type 1 diabetes mellitus Conclusion/Plan: Review of her labs show her to be with chronic elevated BUN and creatinine. Difficult to say if she has acute exacerbation right now but I think not. She has she has better labs on admission than she did the day before BUN 26 >>18 Creatinine 1.1>>1.2 Continue to hydrate Recheck tomorrow morning's labs Avoid nephrotoxic agents Qualifiers: Chronic kidney disease stage: stage 3 (moderate) (5) Generalized anxiety disorder Conclusion/Plan: Hydroxyzine pamoate 25 mg is every 4 hours as needed. Paxil is 40 mg daily. Th at will be resumed as long as she can tolerate p.o. She has been doing well. Anxiety is not overwhelming. (6) Atrial fibrillation Conclusion/Plan: She appears to have a regular rhythm on EKG. But no discrete P wave. Troponins are better on admission than the day before. We will continue anticoagulation while she is in the hospital. She is not on a rate lowering drug. Qualifiers: Atrial fibrillation type: permanent Qualified Code(s): I48.21 - Permanent atrial fibrillation
[2020-11-04] MEDS: SODIUM CHLORIDE FLUSH 0.9% 10 ML SYRINGE IVP SCH ×2 (00:17→08:22)
[2020-11-04] MEDS: ACETAMINOPHEN 325 MG TABLET PO PRN ×3 (00:35→08:18)
[2020-11-04] MEDS: oxyCODONE 5 MG TABLET PO PRN ×3 (00:35→08:16)
[2020-11-04] MEDS: ONDANSETRON 4 MG/2 ML VIAL IVP PRN ×2 (00:36→08:18)
[2020-11-04] MEDS: PROCHLORPERAZINE 10 MG/2 ML VIAL IVP PRN (05:50)
[2020-11-04] MEDS: INSULIN ASPART 300 UNIT/3 ML PEN SUBQ SCH ×2 (08:15→14:10)
[2020-11-04] MEDS: hydrOXYzine PAMOATE 25 MG CAPSULE PO PRN (08:16)
[2020-11-04] MEDS: lisinopriL 20 MG TABLET PO SCH (08:17)
[2020-11-04] MEDS: APIXABAN 5 MG TABLET PO SCH (08:18)
[2020-11-04] MEDS: PARoxetine 10 MG TABLET PO SCH (08:19)
[2020-11-04] MEDS: INSULIN GLARGINE 300 UNIT/3 ML PEN SUBQ SCH (08:20)
[2020-11-04] MEDS: DEXTROSE 5%-LACTATED RINGERS 1,000 ML IV SCH (08:23)
[2020-11-04] MEDS ORDERED: hydrALAZINE INJ 20 MG/ML VIAL IVP PRN (08:37)
--- NOTE | 2020-11-04 08:49 | Ultrasound Report ---
PROCEDURE: Abdomen Limited INDICATIONS: epigastric pain TECHNIQUE: Real-time scanning was performed of the abdominal and retroperitoneal organs, with image documentatio n. COMPARISON: None. FINDINGS: Liver: Liver is normal in size and increased in echotexture. Gallbladder: L bladder demonstrate a nonmobile focus of increased echogenicity measuring approximatel y 4 mm. There is no wall thickening. Biliary ducts: Intrahepatic bile ducts are non-dilated. Extrahepatic bile duct caliber measures 3.7 mm. Normal is 6-7 mm or less in diameter, or 10 mm or less post-cholecystectomy. Pancreas: Visualized portions of the pancreas are sonographically normal. Kidneys: Kidneys are normal in size and echotexture. Right kidney measures 11.7 cm long. No hydron ephrosis or nephrolithiasis. No solid masses. Aorta: Visualized aorta is normal in caliber at less than 3 cm. Iliacs: Proximal common iliac arteries are normal in caliber at less than 2.5 cm. IVC: Intrahepatic inferior vena cava is patent. Miscellaneous: No free abdominal fluid. IMPRESSION: 1. Hepatic steatosis. 2. Adherent gallbladder stone versus polyp. No wall thickening. Reviewed by: Dunia Alnoso MD on 11/04/2020 8:47 AM PDT Approved by: Dunia Alonso MD on 11/04/2020 8:47 AM PDT Station ID: [id number]
[2020-11-04 09:16] LABS: BASOPHILS % (AUTO) 0.5 %; EOSINOPHILS # (AUTO) 0.6 10^3/uL (0.0-0.7); EOSINOPHILS % (AUTO) 7.3 %; HCT - HEMATOCRIT 33.2 % (37.0-47.0); LYMPHOCYTES # (AUTO) 3.7 10^3/uL (1.5-3.5); LYMPHOCYTES % (AUTO) 43.9 %; MEAN CORPUSCULAR HEMOGLOBIN 28.4 pg (27.0-31.0); MEAN CORPUSCULAR HGB CONC 33.1 g/dL (32.0-36.0); MEAN CORPUSCULAR VOLUME 85.8 fL (81.0-99.0); MEAN PLATELET VOLUME 11.6 fL (7.9-10.8); MONOCYTES # (AUTO) 0.7 10^3/uL (0.0-1.0); MONOCYTES % (AUTO) 8.8 %; NEUTROPHILS # (AUTO) 3.2 10^3/uL (1.5-6.6); PLT - PLATELET COUNT 167 10^3/uL (130-450); RED BLOOD COUNT 3.87 10^6/uL (4.20-5.40); RED CELL DISTRIBUTION WIDTH 12.6 % (12.0-15.0); WHITE BLOOD COUNT 8.3 x10^3/uL (4.8-10.8)
[2020-11-04 09:25] LABS: CALCIUM 8.8 mg/dL (8.5-10.3); POTASSIUM 3.5 mmol/L (3.5-5.0)
--- NOTE | 2020-11-04 12:55 | DISCHARGE SUMMARY ---
Discharge Summary Admit Date: 11/01/20 Discharge Date: 11/04/20 Discharging Provider: Vahid Edwards Primary Care Provider: Michaela Garsia Code Status: Attempt Resuscitation Condition at Discharge: Stable Discharge Disposition: 01 Home, Self Care - DIAGNOSES Admission Diagnoses: Epigastric abdominal pain Hypokalemia Type 1 diabetes mellitus on insulin therapy Chronic kidney disease in type 1 diabetes mellitus Generalized anxiety Atrial fibrillation Discharge Diagnoses with Status of Each Condition: Epigastric abdominal pain: Acute. Improved. Work-up unremarkable to date. Patient to follow-up for EGD in the outpatient setting. Hypokalemia: Acute. Resolved Type 1 diabetes mellitus on insulin therapy: Chronic. Stable. Continue home medication Chronic kidney disease in type 1 diabetes mellitus Generalized anxiety: Chronic. Continue home medication Atrial fibrillation: Chronic. On Eliquis. Continue home medication - HPI History of Present Illness: When she had her heart attack she had to stop smoking. So she took up smoking cannabis instead. She does it every day several times a day. She is seen occasionally in the emergency room with hyperemesis syndrome. We last admitted her in July 2018 for this. In reviewing today's visit, she was seen yesterday because of the nausea vomiting and abdominal pain. She had run out of her metoprolol and has not gotten a refill yet. When she was admitted in July 2018 she had run out of her insulin and was having severe hyperglycemia. Hypertensive. She had normal bowel sounds. Tender epigastric area that was mild. She was seen by Dr. Lambert and treated with IV fluids, antiemetics. Her labs showed an elevated white cell count to 15.6, hypokalemia to 2.7. Yesterday her troponin was 34.2. BNP 112. BUN 40, creatinine 1.7. For her this is not unusual. In June creatinine was 1.9. Her random glucose was 225. Her abdominal pain was severe enough and high enough that he did a CT angiogram of her chest looking for aneurysm and there was no pulmonary embolism, no acute abnormality of the chest, and a pericardial cyst that was unchanged from prior CT June 2020. (She was seen in the emergency room in June 2020 with left flank pain. She had a stone then. She had moderate left-sided hydroureter and hydronephrosis) She felt well enough after his interventions that she went home. However she returns with epigastric pain that radiates to the shoulders and to the back and continued nausea and vomiting. She does tell Dr. Nuñez that warm baths do make this pain better She is again hypertensive at 155/102. Afebrile. Heart rate 82. White cell count is 11.6. Hemoglobin 12.1. Platelets 207. Potassium is still low at 2.6. Repeat troponin is 23 today. Creatinine is come down to 1.1. Lipase is 53. Because of continued pain, Dr. Nuñez did a CT of the abdomen. The lung bases have mild atelectasis. Liver/spleen was normal in size. Liver had hepatic steatosis. Gallbladder had high density sludge. Pancreas was normal. Diverticulosis without diverticulitis. The stone that was seen in the left proximal ureter in June is gone. She was in the ER for about 5 hours. He gave her Haldol, Dilaudid, ketorolac, a liter of lactated Ringer's, Reglan, potassium, Phenergan and still continued to have epigastric pain and nausea and vomiting. As such she is requesting observation status to control her pain, nausea and vomiting. - HOSPITAL COURSE Hospital Course: She had a 3-day stay in the hospital. He abdominal pain was managed with morphine and oxycodone as needed. She also received Phenergan, Compazine and Zofran as needed for nausea. Further work-up included an MRCP and CCK HIDA scan which were unremarkable for any significant findings. Patient symptom of nausea/vomiting is suspected to be exacerbated by her marijuana use. She has been educated on this. She acknowledges and expresses understanding and is agreeable to modify her behavior. The rest of the patient's hospital stay was fairly unremarkable. She was discharged in stable condition. She was advised to follow-up with her primary care physician for referral for possible EGD. - ALLERGIES Allergies/Adverse Reactions: Allergies Allergy/AdvReac Type Severity Reaction Status Date / Time No Known Drug Allergies Allergy Verified 11/01/20 19:16 - MEDICATIONS Home Medications: Ambulatory Orders Medication Instructions Recorded Confirmed Insulin Glargine [Lantus Solostar] 35 units SUBQ BID 05/28/17 11/01/20 Insulin Lispro [Humalog] 6 units SUBQ TIDWM 05/28/17 11/01/20 lisinopriL [Lisinopril] 40 mg PO DAILY 05/28/17 11/01/20 hydrOXYzine pamoate [Hydroxyzine 1 cap PO Q4H PRN 11/11/17 11/01/20 Pamoate] Apixaban [Eliquis] 5 mg PO BID 08/12/18 11/01/20 Chlorthalidone 25 mg PO DAILY 08/12/18 11/01/20 Fluticasone [Flonase] 1 sprays NEGRITA BID 08/12/18 11/01/20 PARoxetine HCL [Paroxetine HCl] 40 mg PO DAILY 08/12/18 11/01/20 HYDROcod/ACETAM 5/325 [[place] 5/325] 1 ea PO Q6H PRN #15 tablet 10/31/20 11/01/20 Lidocaine Viscous 2% [Xylocaine 5 ml PO Q4H PRN #100 ml 10/31/20 11/01/20 Viscous 2%] Ondansetron Odt [Zofran Odt] 4 mg TL Q6H PRN #20 tablet 10/31/20 11/01/20 Nitroglycerin [Nitrostat] 0.4 mg SL PRN 11/01/20 Nystatin [Nystop] 1 applic TOP BID 11/01/20 11/01/20 Omeprazole Magnesium 20 mg PO DAILY 11/01/20 11/01/20 metFORMIN [Glucophage] 500 mg PO BID 11/01/20 11/01/20 - PHYSICAL EXAM AT DISCHARGE General Appearance: positive: No acute distress, Alert Eyes Bilateral: positive: PERRL, EOMI ENT: positive: No signs of dehydration Neck: positive: No JVD, Trachea midline Respiratory: positive: Chest non-tender, No respiratory distress, Breath sounds nml. negative: Wheezes, Rales, Rhonchi Cardiovascular: positive: Regular rate & rhythm, No murmur, No gallop Abdomen: positive: Non-tender, No organomegaly, Nml bowel sounds, No distention. negative: Guarding, Rebound Back: positive: Nml inspection Skin: positive: Color nml, No rash, Warm, Dry Extremities: positive: Non-tender, Full ROM, Nml appearance, No pedal edema Neurologic/Psychiatric: positive: Oriented x3, Mood/affect nml - LABS Result Diagrams: 11/04/20 09:10 11/04/20 09:10 - TIME SPENT Time Spent in Discharge (Minutes): 20
--- NOTE | 2020-11-04 13:02 | Discharge Plan ---
Discharge Plan Problem Reviewed?: Yes Disposition: Home, Self Care Condition: Stable Diet: Diabetic (Low Fat Diet) Activity Restrictions: Activity as Tolerated Health Concerns: You were admitted on 11/01/20 with abdominal pain and intractable nausea and vomiting. You underwent a CT of the abdomen/pelvis which showed the liver/spleen when normal in size. Fatty liver was noted on imaging. The gallbladder also had high density sludge. Over the course of your stay, your pain was managed appropriately with pain medications and you received antiemetics for nausea and vomiting. Further imaging included an MRCP and a CCK HIDA scan which have been unremarkable. It is suspected that your nausea and vomiting is likely related to marijuana use. You have been advised regarding this. You are being discharged in stable condition and advised to follow-up with your primary care physician for an outpatient EGD. You expressed understanding to the above plan and are in agreement. No Smoking: If you smoke, Please STOP! Call for help. Follow-up with: Michaela Garsia ARNP [Primary Care Provider] -
[2020-11-04] MEDS ORDERED: SINCALIDE 0.9 MCG in SODIUM CHLORIDE 0.9% 50 ML IV ONE (14:10)
[2020-11-04 14:30] VITALS: BP 164/98
--- NOTE | 2020-11-04 15:00 | Nuclear Medicine Report ---
PROCEDURE: Hepatobiliary HIDA w/ Rx INDICATIONS: biliary colic RADIOPHARMACEUTICAL: 5. mCi Tc-99m meprofenin i.v. and 1.85 ?g sincalide i.v. TECHNIQUE: Following intravenous administration of Tc-99m meprofenin, spot [place] images were obtained at 0 min, 10 min and 30 min. The patient was unable to tolerate continuous sequential imaging. To ev aluate the contractile response of the gallbladder in response to Cholecystokinin (CCK), 1.85 microgr am sincalide (0.02 ?g/kg) was administered by slow intravenous infusion approximately 30 minutes afte r the administration of the radiopharmaceutical. Additional imaging was obtained post CCK infusion. Gallbladder ejection fraction was calculated. COMPARISON: MRCP, 11/03/2020. Ultrasound abdomen, limited, 11/04/2020. FINDINGS: Biliary scan: There is normal tracer uptake and excretion by the liver. There is normal visualizati on of the intrahepatic ducts, common bile duct, and gallbladder. There is normal tracer transit into the duodenum. CCK stimulation: There is normal contractile response of the gallbladder to CCK infusion. The calcu lated gallbladder ejection fraction is 86%; normal values are above 35%. IMPRESSION: 1. Limited examination. 2. Normal filling of gallbladder. No scintigraphic findings to suggest acute cholecystitis. 3. Normal contractile response of gallbladder to CCK infusion.. Reviewed by: Allison Fung MD on 11/04/2020 2:58 PM PDT Approved by: Allison Fung MD on 11/04/2020 2:58 PM PDT Station ID: [id number]
== END 2020-11-04 15:31 | disposition home or self-care (01) ==
LOC: ED 12:19 → MS2 17:42
PROVIDERS: ADMIT Specialist; ATTEND Internal Medicine
DX: R10.13 Epigastric pain (principal); E87.6 Hypokalemia; R11.2 Nausea with vomiting, unspecified; E10.42 Type 1 diabetes mellitus with diabetic polyneuropathy; E10.319 Type 1 diabetes mellitus with unspecified diabetic retinopathy without macular edema; E10.22 Type 1 diabetes mellitus with diabetic chronic kidney disease; N18.30 Chronic kidney disease, stage 3 unspecified; I13.0 Hypertensive heart and chronic kidney disease with heart failure and stage 1 through stage 4 chronic kidney disease, or unspecified chronic kidney disease; I50.9 Heart failure, unspecified; I20.9 Angina pectoris, unspecified; F41.1 Generalized anxiety disorder; F32.9 Major depressive disorder, single episode, unspecified; I48.21 Permanent atrial fibrillation; F12.988 Cannabis use, unspecified with other cannabis-induced disorder; K76.0 Fatty (change of) liver, not elsewhere classified; K82.8 Other specified diseases of gallbladder; K57.30 Diverticulosis of large intestine without perforation or abscess without bleeding; T44.7X6A Underdosing of beta-adrenoreceptor antagonists, initial encounter; B37.2 Candidiasis of skin and nail; Z20.822 Contact with and (suspected) exposure to COVID-19; Z72.89 Other problems related to lifestyle; Z79.01 Long term (current) use of anticoagulants; Z79.4 Long term (current) use of insulin; Z79.899 Other long term (current) drug therapy; I25.2 Old myocardial infarction
CPT/HCPCS: 0202U; 36415; 74176; 74181; 76705; 78227; 80048; 80053; 81003; 83036; 83690; 83735; 84484; 85025; 93005; 96361; 96365; 96375; 96376; 99285; A9270; A9585; G0378; J1170; J1815; J2060; J2765; J7040; J7120; 81001; 87086

== ENCOUNTER 2021-01-13 09:12 | Emergency (ER) | payer MEDICAID ==
--- NOTE | 2021-01-13 09:26 | ED Physician Documentation ---
PD HPI NVD - Stated complaint Stated Complaint: BLOOD SUGARS,VOMITTING - History obtained from History obtained from: Patient - History of Present Illness Timing - onset: How many days ago (2) Timing - duration: Days (2) Timing - details: Gradual onset, Still present Associated symptoms: Abdominal pain (Crampy upper abdominal pain associated with persistent nausea and vomiting for last 1-1/2 to 2 days. Similar to prior episodes of cyclic vomiting. Unclear diagnosis of possible gastroparesis versus cannabis related.), Loss of appetite, Other (States her sugars have been moderately high over the last 2 days as well. She had cut back on her Humalog insulin dose to compensate. Continued the Lantus.). No: Near syncope / syncope Contributing factors: Diabetes. No: Sick contact, Alcohol use Similar symptoms before: Diagnosis (Prior episodes with uncertain diagnosis with differential diabetic gastroparesis versus gastritis versus cannabis induced hyperemesis.) Review of Systems Constitutional: denies: Fever Nose: denies: Rhinorrhea / runny nose, Congestion Throat: denies: Sore throat Cardiac: denies: Chest pain / pressure Respiratory: denies: Cough GI: reports: Abdominal Pain, Nausea, Vomiting. denies: Diarrhea, Hematemesis Skin: denies: Rash, Lesions Neurologic: reports: Generalized weakness. denies: Near syncope Psychiatric: reports: Anxiety PD PAST MEDICAL HISTORY - Past Medical History Cardiovascular: Congestive heart failure (Echo 2017 normal, repeat echo with [place] 2018 now with EF 30 to 35%), Hypertension, Angina, [place] (2017 with normal cath, second [place] October 2017 with STEMI), Atrial fibrillation (With STEMI 2018, placed on Eliquis), Arrhythmia, Other (morbid obesity) Respiratory: None Neuro: Peripheral neuropathy, Other (retinopathy) Endocrine/Autoimmune: Type 1 diabetes (Diagnosed with [place]. By 2018 with neuropathy and retinopathy. 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, Other ( w twins) : None HEENT: Other (allergic rhinitis) Psych: Depression (with dysthmia, in past on Paxil.), Anxiety (Ever since her [place] with daily marijuana use to control her anxiety) Musculoskeletal: None Derm: Other (joby intertrigo under breasts) - Past Surgical History Past Surgical History: Yes /ACCOUNTS RECEIVABLE PROCESSOR: section HEENT: Tonsil/Adenoidectomy - Present Medications Home Medications: Ambulatory Orders Medication Instructions Recorded Confirmed Insulin Glargine [Lantus Solostar] 35 units SUBQ BID 05/28/17 01/13/21 Insulin Lispro [Humalog] 6 units SUBQ TIDWM 05/28/17 01/13/21 lisinopriL [Lisinopril] 40 mg PO DAILY 05/28/17 01/13/21 hydrOXYzine pamoate [Hydroxyzine 1 cap PO Q4H PRN 11/11/17 01/13/21 Pamoate] Apixaban [Eliquis] 5 mg PO BID 08/12/18 01/13/21 Chlorthalidone 25 mg PO DAILY 08/12/18 01/13/21 Fluticasone [Flonase] 1 sprays NEGRITA BID 08/12/18 01/13/21 PARoxetine HCL [Paroxetine HCl] 40 mg PO DAILY 08/12/18 01/13/21 HYDROcod/ACETAM 5/325 [[place] 5/325] 1 ea PO Q6H PRN #15 tablet 10/31/20 01/13/21 Nitroglycerin [Nitrostat] 0.4 mg SL PRN PRN 11/01/20 01/13/21 Nystatin [Nystop] 1 applic TOP BID 11/01/20 01/13/21 Omeprazole Magnesium 20 mg PO DAILY 11/01/20 01/13/21 metFORMIN [Glucophage] 500 mg PO BID 11/01/20 01/13/21 Famotidine [Pepcid] 20 mg PO DAILY #20 tablet 01/13/21 Ondansetron Odt [Zofran] 4 mg TL Q6H PRN #20 tablet 01/13/21 - Allergies Allergies/Adverse Reactions: Allergies Allergy/AdvReac Type Severity Reaction Status Date / Time No Known Drug Allergies Allergy Verified 01/13/21 09:21 - Social History Does the pt smoke?: No Smoking Status: Former smoker Does the pt drink ETOH?: Yes Does the pt have substance abuse?: Yes - Immunizations Immunizations are current?: No Immunizations: TDAP >10years/unknown - POLST Patient has POLST: No POLST Status: Full Code PD ED PE NORMAL - Vitals Vital signs reviewed: Yes - General General: Alert and oriented X 3, Well developed/nourished, Other (She appears considerably distressed with anxiety as well as apparent pain and repetitive nausea with dry heaving. She is holding an emesis bag tightly.) - HEENT HEENT: Pharynx benign. No: Moist mucous membranes - Neck Neck: Supple, no meningeal sign, No adenopathy - Cardiac Cardiac: RRR, No murmur - Respiratory Respiratory: Clear bilaterally (She is hyperventilating with clear lung sounds and good oxygenation but rapid respiratory rate.) - Abdomen Abdomen: Soft, Non distended, No organomegaly, Other (tender epigastric area with local guarding. ) - Back Back: No CVA TTP - Derm Derm: Normal color, Warm and dry - Extremities Extremities: No edema, No calf tenderness / cord - Neuro Neuro: Alert and oriented X 3, No motor deficit, Normal speech Results - Vitals Vitals: Vital Signs - 24 hr 01/13/21 01/13/21 01/13/21 09:21 09:56 10:00 Temperature 36 C L 37 C Heart Rate 100 77 72 Respiratory 36 H 14 20 Rate Blood Pressure 186/91 H 200/88 H O2 Saturation 100 96 87 L 01/13/21 01/13/21 01/13/21 10:10 11:00 13:00 Temperature Heart Rate 74 73 81 Respiratory 16 17 20 Rate Blood Pressure 133/70 H 125/79 O2 Saturation 100 97 100 Oxygen O2 Source Room air Oxygen Flow Rate 2 - Labs Labs: Laboratory Tests 01/13/21 01/13/21 01/13/21 09:23 09:35 09:35 WBC 21.6 H RBC 4.54 Hgb 12.9 Hct 37.2 MCV 81.9 MCH 28.4 MCHC 34.7 RDW 13.8 Plt Count 293 MPV 11.8 H Neut # (Auto) 15.7 H Lymph # (Auto) 4.0 H [place] # (Auto) 1.6 H Eos # (Auto) 0.0 Baso # (Auto) 0.1 Absolute Nucleated RBC 0.00 Nucleated RBC % 0.0 Manual Slide Review Indicated WBC Morphology NORMAL APPEARANCE Platelet Estimate NORMAL (130-450,000) Platelet Morphology NORMAL APPEARANCE RBC Morph Micro Appear NORMAL APPEARANCE VBG pH VBG pCO2 VBG pO2 VBG HCO3 VBG Total CO2 VBG O2 Saturation VBG Base Excess Sodium 135 Potassium 2.4 L* Chloride 94 L Carbon Dioxide 20 L Anion Gap 21.0 H BUN 44 H Creatinine 1.9 H Estimated GFR (MDRD) 27 L Glucose 287 H POC Whole Bld Glucose 290 H Calcium 9.7 Magnesium 1.4 L Total Bilirubin 1.2 H AST 38 ALT 28 Alkaline Phosphatase 63 Total Protein 8.3 H Albumin 4.3 Globulin 4.0 Albumin/Globulin Ratio 1.1 Lipase 23 Ethyl Alcohol < 5.0 Serum Ketones NEGATIVE 01/13/21 01/13/21 09:35 11:17 WBC RBC Hgb Hct MCV MCH MCHC RDW Plt Count MPV Neut # (Auto) Lymph # (Auto) [place] # (Auto) Eos # (Auto) Baso # (Auto) Absolute Nucleated RBC Nucleated RBC % Manual Slide Review WBC Morphology Platelet Estimate Platelet Morphology RBC Morph Micro Appear VBG pH 7.646 H VBG pCO2 20.5 L VBG pO2 29.5 VBG HCO3 21.9 L VBG Total CO2 22.5 L VBG O2 Saturation 67.9 VBG Base Excess 3.0 H Sodium Potassium Chloride Carbon Dioxide Anion Gap BUN Creatinine Estimated GFR (MDRD) Glucose POC Whole Bld Glucose 242 H Calcium Magnesium Total Bilirubin AST ALT Alkaline Phosphatase Total Protein Albumin Globulin Albumin/Globulin Ratio Lipase Ethyl Alcohol Serum Ketones PD MEDICAL DECISION MAKING - ED course Complexity details: reviewed results (Blood gas shows alkalosis consistent with hyperventilating. No signs of acidosis. Ketones are negative. Blood sugar is moderately elevated. Potassium is low at 2.4.), re-evaluated patient (She did feel improved with Inapsine for nausea and Dilaudid. She is given IV fluids. She does not seem to be ketotic nor acidotic. Her breathing is improved. She is able to tolerate some p.o. food and fluids after couple of doses of antiemetic.), considered differential, d/w patient Departure - Departure Disposition: 01 Home, Self Care Clinical Impression: Hyperglycemia, Hyperventilation, Hypokalemia Nausea and vomiting Qualifiers: Vomiting type: unspecified Vomiting Intractability: non-intractable Qualified Code(s): R11.2 - Nausea with vomiting, unspecified Diabetes Qualifiers: Diabetes mellitus type: type 2 Diabetes mellitus usp insulin use: with usp use Diabetes mellitus complication status: without complication Qualified Code(s): E11.9 - Type 2 diabetes mellitus without complications Condition: Stable Record reviewed to determine appropriate education?: Yes Instructions: Diet High Potassium Dc, ED Nausea Vomiting Follow-Up: Michaela Garsia ARNP [Primary Care Provider] - Prescriptions: Famotidine [Pepcid] 20 mg PO DAILY #20 tablet Ondansetron Odt [Zofran] 4 mg TL Q6H PRN #20 tablet PRN Reason: Nausea / Vomiting Comments: Dizziness reducing medicine daily for the next couple of weeks. Continue your other usual medications. Have potassium rich foods frequently over the next week or so. At ondansetron/Zofran if needed for nausea. Recheck if recurrent symptoms. Contact your primary care regarding medication refills since your current ones run out on the seventh. Return to the ER as needed. [place] food and frequent fluids today. I transmitted your prescriptions to [facility] in [place]. Discharge Date/Time: 01/13/21 13:25
[2021-01-13] MEDS ORDERED: SODIUM CHLORIDE 0.9% 1,000 ML IV STA (09:27)
[2021-01-13] MEDS ORDERED: HYDROmorphone 1 MG/ML CARPUJECT IVP STA (09:28)
[2021-01-13] MEDS ORDERED: DROPERIDOL 5 MG/2 ML VIAL IVP STA ×2 (09:28→11:33)
[2021-01-13 09:42] LABS: BASOPHILS # (AUTO) 0.1 10^3/uL (0.0-0.1); BASOPHILS % (AUTO) 0.5 %; EOSINOPHILS % (AUTO) 0.2 %; HCT - HEMATOCRIT 37.2 % (37.0-47.0); HGB - HEMOGLOBIN 12.9 g/dL (12.0-16.0); LYMPHOCYTES % (AUTO) 18.5 %; MEAN CORPUSCULAR HEMOGLOBIN 28.4 pg (27.0-31.0); MEAN CORPUSCULAR HGB CONC 34.7 g/dL (32.0-36.0); MEAN CORPUSCULAR VOLUME 81.9 fL (81.0-99.0); MEAN PLATELET VOLUME 11.8 fL (7.9-10.8); MONOCYTES # (AUTO) 1.6 10^3/uL (0.0-1.0); MONOCYTES % (AUTO) 7.3 %; NEUTROPHILS # (AUTO) 15.7 10^3/uL (1.5-6.6); NEUTROPHILS % (AUTO) 72.7 %; PLT - PLATELET COUNT 293 10^3/uL (130-450); RED BLOOD COUNT 4.54 10^6/uL (4.20-5.40); RED CELL DISTRIBUTION WIDTH 13.8 % (12.0-15.0); WHITE BLOOD COUNT 21.6 x10^3/uL (4.8-10.8)
[2021-01-13 09:48] LABS: SLIDE REVIEW? Indicated
[2021-01-13 09:49] LABS: VBG HCO3 21.9 mmol/L (23-28); VBG OXYGEN SATURATION 67.9 % (60-80); VBG PCO2 20.5 mmHg (41-51); VBG PH 7.646 (7.31-7.41); VBG PO2 29.5 mmHg (25-47); VBG TOTAL CO2 22.5 mmol/L (24-29)
[2021-01-13 10:00] LABS: ALBUMIN 4.3 g/dL (3.2-5.5); ALBUMIN/GLOBULIN RATIO 1.1 (1.0-2.2); ALKALINE PHOSPHATASE 63 IU/L (42-121); ALT ALANINE AMINOTRANSFERASE 28 IU/L (10-60); AST ASPARTATE AMINOTRANSFERASE 38 IU/L (10-42); BILIRUBIN,TOTAL 1.2 mg/dL (0.2-1.0); BUN - BLOOD UREA NITROGEN 44 mg/dL (6-20); CALCIUM 9.7 mg/dL (8.5-10.3); CARBON DIOXIDE - CO2 20 mmol/L (21-32); CHLORIDE 94 mmol/L (101-111); CREATININE 1.9 mg/dL (0.4-1.0); ETOH - ETHANOL < 5.0 mg/dL; GFR - MDRD 27 (>89); GLUCOSE 287 mg/dL (70-100); LIPASE 23 U/L (22-51); MAGNESIUM 1.4 mg/dL (1.7-2.8); SODIUM 135 mmol/L (135-145); TOTAL PROTEIN 8.3 g/dL (6.7-8.2)
[2021-01-13] MEDS ORDERED: POTASSIUM CHLOR 10 MEQ/100 ML 10 MEQ/100 ML BAG IV STA (10:02)
[2021-01-13 10:03] LABS: POTASSIUM 2.4 mmol/L (3.5-5.0)
[2021-01-13 10:05] LABS: KETONES, SERUM (ACETEST) NEGATIVE (NEGATIVE)
[2021-01-13 10:09] LABS: PLATELET ESTIMATE, MANUAL NORMAL (130-450,000) (NORMAL); PLATELET MORPHOLOGY NORMAL APPEARANCE (NORMAL); RBC MORPHOLOGY (MULTIPLE) NORMAL APPEARANCE (NORMAL); WBC MORPHOLOGY (MULTIPLE) NORMAL APPEARANCE (NORMAL)
[2021-01-13] MEDS ORDERED: MAG HYDROX/AL HYDROX/SIMETH 30 ML UDC PO STA (11:34)
[2021-01-13 13:25] VITALS: BP 125/79
== END 2021-01-13 13:25 | disposition home or self-care (01) ==
LOC: ED 09:12
DX: E87.6 Hypokalemia (principal); R06.4 Hyperventilation; I10 Essential (primary) hypertension; E10.65 Type 1 diabetes mellitus with hyperglycemia; E10.42 Type 1 diabetes mellitus with diabetic polyneuropathy; Z79.4 Long term (current) use of insulin; I48.91 Unspecified atrial fibrillation; Z79.01 Long term (current) use of anticoagulants; Z87.891 Personal history of nicotine dependence
CPT/HCPCS: 36415; 80053; 80320; 82009; 82803; 83690; 83735; 85025; 96361; 96374; 96375; 96376; 99284; A9270; J1170

== ENCOUNTER 2021-03-16 14:40 | Outpatient (CLI) | payer MEDICAID ==
[2021-03-16 20:04] LABS: BASOPHILS # (AUTO) 0.1 10^3/uL (0.0-0.1); BASOPHILS % (AUTO) 0.7 %; EOSINOPHILS # (AUTO) 0.4 10^3/uL (0.0-0.7); EOSINOPHILS % (AUTO) 4.1 %; HCT - HEMATOCRIT 36.9 % (37.0-47.0); LYMPHOCYTES # (AUTO) 3.5 10^3/uL (1.5-3.5); LYMPHOCYTES % (AUTO) 32.6 %; MEAN CORPUSCULAR HEMOGLOBIN 28.4 pg (27.0-31.0); MEAN CORPUSCULAR HGB CONC 32.5 g/dL (32.0-36.0); MEAN CORPUSCULAR VOLUME 87.2 fL (81.0-99.0); MEAN PLATELET VOLUME 12.9 fL (7.9-10.8); MONOCYTES # (AUTO) 0.6 10^3/uL (0.0-1.0); MONOCYTES % (AUTO) 5.9 %; NEUTROPHILS # (AUTO) 6.1 10^3/uL (1.5-6.6); PLT - PLATELET COUNT 241 10^3/uL (130-450); RED BLOOD COUNT 4.23 10^6/uL (4.20-5.40); RED CELL DISTRIBUTION WIDTH 12.9 % (12.0-15.0); WHITE BLOOD COUNT 10.8 x10^3/uL (4.8-10.8)
[2021-03-16 20:19] LABS: CHOL/HDL RATIO 4.8 (<4.4); CHOLESTEROL 235 mg/dL; HDL CHOLESTEROL 49 mg/dL; LDL CHOLESTEROL,CALCULATED 140 mg/dL; LDL/HDL RATIO 2.9 (<4.4); TRIGLYCERIDES 232 mg/dL; VLDL CHOLESTEROL 46 mg/dL
[2021-03-16 20:27] LABS: MICROALBUM/CREATININE RATIO,UR 5.7 ug/mg (<30.0); MICROALBUMIN,URINE 0.8 mg/dL (0-300.0)
[2021-03-16 20:50] LABS: THYROID STIMULATING HORMONE 4.22 uIU/mL (0.34-5.60)
== END 2021-03-16 14:41 | disposition home or self-care (01) ==
LOC: LAB.S 14:40
PROVIDERS: ATTEND Registered Nurse
DX: I48.21 Permanent atrial fibrillation (principal); E10.9 Type 1 diabetes mellitus without complications; I10 Essential (primary) hypertension; F41.9 Anxiety disorder, unspecified; Z79.01 Long term (current) use of anticoagulants
CPT/HCPCS: 36415; 80061; 82043; 82570; 83721; 84443; 85025

== ENCOUNTER 2021-11-16 10:48 | Emergency (ER) | payer MEDICAID ==
[2021-11-16] MEDS ORDERED: ONDANSETRON 4 MG/2 ML VIAL IVP STA (11:28)
[2021-11-16 11:31] LABS: BASOPHILS % (AUTO) 0.2 %; EOSINOPHILS % (AUTO) 0.1 %; HCT - HEMATOCRIT 38.1 % (37.0-47.0); HGB - HEMOGLOBIN 13.3 g/dL (12.0-16.0); LYMPHOCYTES # (AUTO) 4.2 10^3/uL (1.5-3.5); LYMPHOCYTES % (AUTO) 25.8 %; MEAN CORPUSCULAR HEMOGLOBIN 29.2 pg (27.0-31.0); MEAN CORPUSCULAR HGB CONC 34.9 g/dL (32.0-36.0); MEAN CORPUSCULAR VOLUME 83.6 fL (81.0-99.0); MEAN PLATELET VOLUME 12.1 fL (7.9-10.8); MONOCYTES # (AUTO) 1.4 10^3/uL (0.0-1.0); MONOCYTES % (AUTO) 8.6 %; NEUTROPHILS # (AUTO) 10.6 10^3/uL (1.5-6.6); NEUTROPHILS % (AUTO) 64.6 %; PLT - PLATELET COUNT 276 10^3/uL (130-450); RED BLOOD COUNT 4.56 10^6/uL (4.20-5.40); RED CELL DISTRIBUTION WIDTH 13.3 % (12.0-15.0); WHITE BLOOD COUNT 16.5 x10^3/uL (4.8-10.8)
[2021-11-16] MEDS ORDERED: HYDROmorphone 1 MG/ML CARPUJECT IVP STA (11:39)
[2021-11-16] MEDS ORDERED: SODIUM CHLORIDE 0.9% 1,000 ML IV STA ×2 (11:39→12:05)
--- NOTE | 2021-11-16 11:42 | XRAY Report ---
PROCEDURE: Chest 1 View X-Ray INDICATIONS: Chest Pain TECHNIQUE: One view of the chest was acquired. COMPARISON: Chest x-ray 10/31/2020 FINDINGS: Surgical changes and devices: None. Lungs and pleura: No pleural effusions or pneumothorax. Lungs are clear. Mediastinum: Mediastinal contours appear normal. Heart size is normal. Bones and chest wall: No suspicious bony lesions. Overlying soft tissues appear unremarkable. IMPRESSION: No acute pulmonary process. Reviewed by: Dunia Alonso MD on 11/16/2021 11:41 AM PDT Approved by: Dunia Alonso MD on 11/16/2021 11:41 AM PDT Station ID: [id number]
--- NOTE | 2021-11-16 11:43 | ED Physician Documentation ---
History of Present Illness - Stated complaint Stated Complaint: CHEST PX,NAUSEA - Chief complaint Chief Complaint: Cardiac - Additonal information Additional information: 66-year-old type I diabetic with a history of previous coronary artery disease, myocardial infarction and atrial fibrillation anticoagulated on Eliquis presents to the emergency department for evaluation of now 4 days nausea and vomiting. She reports epigastric pain that is radiating up into her chest. She has been unable to keep anything down for 2 to 3 days and as such has not been able to take any of her oral medications. She has had similar in the past. Unsure if she has had fevers. No cough. Vaccinated for COVID. Review of Systems Constitutional: reports: Reviewed and negative Cardiac: reports: Chest pain / pressure. denies: Calf pain Respiratory: denies: Dyspnea GI: reports: Abdominal Pain, Nausea, Vomiting : reports: Reviewed and negative Skin: reports: Reviewed and negative Musculoskeletal: reports: Reviewed and negative Neurologic: reports: Reviewed and negative PD PAST MEDICAL HISTORY - Past Medical History Cardiovascular: Congestive heart failure (Echo 2017 normal, repeat echo with [place] 2018 now with EF 30 to 35%), Hypertension, Angina, [place] (2017 with normal cath, second [place] October 2017 with STEMI), Atrial fibrillation (With STEMI 2018, placed on Eliquis), Arrhythmia, Other (morbid obesity) Respiratory: None Neuro: Peripheral neuropathy, Other (retinopathy) Endocrine/Autoimmune: Type 1 diabetes (Diagnosed with [place]. By 2018 with neuropathy and retinopathy. "Significantly limited by patient not following up with our offices to further adjust her medication") GI: None ARNP: None, Other ( w twins) : None HEENT: Other (allergic rhinitis) Psych: Depression (with dysthmia, in past on Paxil.), Anxiety (Ever since her [place] with daily marijuana use to control her anxiety) Musculoskeletal: None Derm: Other (joby intertrigo under breasts) - Past Surgical History Past Surgical History: Yes /ARNP: section HEENT: Tonsil/Adenoidectomy - Present Medications Home Medications: Ambulatory Orders Medication Instructions Recorded Confirmed Insulin Glargine [Lantus Solostar] 35 units SUBQ BID 05/28/17 01/13/21 Insulin Lispro [Humalog] 6 units SUBQ TIDWM 05/28/17 01/13/21 lisinopriL [Lisinopril] 40 mg PO DAILY 05/28/17 01/13/21 hydrOXYzine pamoate [Hydroxyzine 1 cap PO Q4H PRN 11/11/17 01/13/21 Pamoate] Apixaban [Eliquis] 5 mg PO BID 08/12/18 01/13/21 Chlorthalidone 25 mg PO DAILY 08/12/18 01/13/21 Fluticasone [Flonase] 1 sprays NEGRITA BID 08/12/18 01/13/21 PARoxetine HCL [Paroxetine HCl] 40 mg PO DAILY 08/12/18 01/13/21 HYDROcod/ACETAM 5/325 [[place] 5/325] 1 ea PO Q6H PRN #15 tablet 10/31/20 01/13/21 Nitroglycerin [Nitrostat] 0.4 mg SL PRN PRN 11/01/20 01/13/21 Nystatin [Nystop] 1 applic TOP BID 11/01/20 01/13/21 Omeprazole Magnesium 20 mg PO DAILY 11/01/20 01/13/21 metFORMIN [Glucophage] 500 mg PO BID 11/01/20 01/13/21 Famotidine [Pepcid] 20 mg PO DAILY #20 tablet 01/13/21 Ondansetron Odt [Zofran] 4 mg TL Q6H PRN #20 tablet 01/13/21 Ondansetron Odt [Zofran] 4 mg TL Q6H PRN #10 tablet 11/16/21 Potassium Chloride [K-Dur] 20 meq PO DAILY #7 tablet 11/16/21 - Allergies Allergies/Adverse Reactions: Allergies Allergy/AdvReac Type Severity Reaction Status Date / Time No Known Drug Allergies Allergy Verified 11/16/21 11:08 - Social History Does the pt smoke?: No Smoking Status: Former smoker Does the pt drink ETOH?: Yes Does the pt have substance abuse?: Yes - Immunizations Immunizations are current?: No Immunizations: TDAP >10years/unknown - POLST Patient has POLST: No POLST Status: Full Code PD ED PE EXPANDED - General General: Alert, No acute distress - Cardiac Cardiac: Regular Rate, Irregularly irregular, Murmur Present, Radial strong equal, Pedal strong equal, Cap refill < 2 sec - Respiratory Respiratory: Clear to ausultation beena. No: Distress - Abdomen Abdomen: Normal Bowel sounds, Tender to palpation (Epigastric tenderness without guarding rebound) - Derm Derm: Normal color, Warm and dry. No: Rash - Extremities Extremities: Normal. No: Deformity, Tenderness - Neuro Neuro: Alert and Oriented X 3, CNII-XII intact - GCS Eye Opening: Spontaneous Motor: Obeys Commands Verbal: Oriented Total: 15 Results - Vitals Vitals: Vital Signs - 24 hr 11/16/21 11/16/21 11/16/21 11:06 11:26 11:31 Temperature 36.3 C L Heart Rate 95 88 89 Respiratory 20 20 20 Rate Blood Pressure 151/119 H 188/107 H 190/98 H O2 Saturation 97 100 100 11/16/21 11/16/21 11/16/21 12:28 13:00 13:30 Temperature Heart Rate 83 81 82 Respiratory 24 16 17 Rate Blood Pressure 148/103 H O2 Saturation 100 100 99 11/16/21 11/16/21 11/16/21 14:00 14:30 15:00 Temperature Heart Rate 73 72 75 Respiratory 15 14 15 Rate Blood Pressure 154/93 H 128/88 H 104/70 O2 Saturation 94 95 96 11/16/21 16:42 Temperature 36.8 C Heart Rate 82 Respiratory 20 Rate Blood Pressure 137/78 H O2 Saturation 96 Oxygen O2 Source Room air - EKG (time done) 1057 Rate: Rate (enter#) (94) Rhythm: Other (ectopic atrial) [place]: Normal Intervals: Prolonged QT QRS: LVH Ischemia: Normal ST segments Compare to prior EKG: Unchanged from prior EKG Computer interpretation: Agree with computer - Labs Labs: Laboratory Tests 11/16/21 11/16/21 11/16/21 11:14 11:20 11:40 WBC 16.5 H RBC 4.56 Hgb 13.3 Hct 38.1 MCV 83.6 MCH 29.2 MCHC 34.9 RDW 13.3 Plt Count 276 MPV 12.1 H Neut # (Auto) 10.6 H Lymph # (Auto) 4.2 H [place] # (Auto) 1.4 H Eos # (Auto) 0.0 Baso # (Auto) 0.0 Absolute Nucleated RBC 0.00 Nucleated RBC % 0.0 Sodium 130 L Potassium 2.5 L* Chloride 91 L Carbon Dioxide 19 L Anion Gap 20.0 H BUN 33 H Creatinine 1.6 H Estimated GFR (MDRD) 32 L Glucose 203 H POC Whole Bld Glucose 228 H Lactic Acid Calcium 9.0 Phosphorus 3.2 Magnesium 1.7 Total Bilirubin 1.3 H AST 41 ALT 38 Alkaline Phosphatase 67 Total Protein 7.7 Albumin 4.1 Globulin 3.6 Albumin/Globulin Ratio 1.1 Lipase 26 Urine Color Urine Clarity Urine pH Ur Specific [place] Urine Protein Urine Glucose (UA) Urine Ketones Urine Occult Blood Urine Nitrite Urine Bilirubin Urine Urobilinogen Ur Leukocyte Esterase Ur Microscopic Review Urine Culture Comments Urine Opiates Screen Ur Oxycodone Screen Urine Methadone Screen Ur Propoxyphene Screen Ur Barbiturates Screen Ur Tricyclics Screen Ur Phencyclidine Scrn Ur Amphetamine Screen U Methamphetamines Scrn U Benzodiazepines Scrn Urine Cocaine Screen U Cannabinoids Screen Serum Ketones SMALL H 11/16/21 11/16/21 11/16/21 12:38 13:21 14:02 WBC RBC Hgb Hct MCV MCH MCHC RDW Plt Count MPV Neut # (Auto) Lymph # (Auto) [place] # (Auto) Eos # (Auto) Baso # (Auto) Absolute Nucleated RBC Nucleated RBC % Sodium Potassium Chloride Carbon Dioxide Anion Gap BUN Creatinine Estimated GFR (MDRD) Glucose POC Whole Bld Glucose 148 H Lactic Acid 1.7 Calcium Phosphorus Magnesium Total Bilirubin AST ALT Alkaline Phosphatase Total Protein Albumin Globulin Albumin/Globulin Ratio Lipase Urine Color YELLOW Urine Clarity CLEAR Urine pH 6.0 Ur Specific [place] 1.020 Urine Protein NEGATIVE Urine Glucose (UA) NEGATIVE Urine Ketones 15 H Urine Occult Blood NEGATIVE Urine Nitrite NEGATIVE Urine Bilirubin NEGATIVE Urine Urobilinogen 0.2 (NORMAL) Ur Leukocyte Esterase NEGATIVE Ur Microscopic Review NOT INDICATED Urine Culture Comments NOT INDICATED Urine Opiates Screen POSITIVE H Ur Oxycodone Screen NEGATIVE Urine Methadone Screen NEGATIVE Ur Propoxyphene Screen NEGATIVE Ur Barbiturates Screen NEGATIVE Ur Tricyclics Screen POSITIVE H Ur Phencyclidine Scrn NEGATIVE Ur Amphetamine Screen NEGATIVE U Methamphetamines Scrn NEGATIVE U Benzodiazepines Scrn NEGATIVE Urine Cocaine Screen NEGATIVE U Cannabinoids Screen POSITIVE H Serum Ketones 11/16/21 15:28 WBC RBC Hgb Hct MCV MCH MCHC RDW Plt Count MPV Neut # (Auto) Lymph # (Auto) [place] # (Auto) Eos # (Auto) Baso # (Auto) Absolute Nucleated RBC Nucleated RBC % Sodium 129 L Potassium 2.8 L Chloride 96 L Carbon Dioxide 22 Anion Gap 11.0 BUN 30 H Creatinine 1.3 H Estimated GFR (MDRD) 41 L Glucose 110 H POC Whole Bld Glucose Lactic Acid Calcium 7.8 L Phosphorus Magnesium Total Bilirubin AST ALT Alkaline Phosphatase Total Protein Albumin Globulin Albumin/Globulin Ratio Lipase Urine Color Urine Clarity Urine pH Ur Specific [place] Urine Protein Urine Glucose (UA) Urine Ketones Urine Occult Blood Urine Nitrite Urine Bilirubin Urine Urobilinogen Ur Leukocyte Esterase Ur Microscopic Review Urine Culture Comments Urine Opiates Screen Ur Oxycodone Screen Urine Methadone Screen Ur Propoxyphene Screen Ur Barbiturates Screen Ur Tricyclics Screen Ur Phencyclidine Scrn Ur Amphetamine Screen U Methamphetamines Scrn U Benzodiazepines Scrn Urine Cocaine Screen U Cannabinoids Screen Serum Ketones SMALL H - Rads (name of study) cxr Radiology: Final report received (No acute pulmonary process) CT abd Radiology: Final report received (Diverticulosis. Hepatic steatosis.) PD MEDICAL DECISION MAKING - ED course Complexity details: reviewed results, re-evaluated patient, considered differential, d/w patient ED course: 66-year-old type I diabetic presents emergency department for evaluation of 3 days uncontrolled nausea and vomiting. This follow cannabis use Tuesday evening. Patient reports she has been unable to keep any of her medicines down therefore she has not taken her insulins. On presentation she had a mildly elevated blood glucose in the 220s and her serum ketones were small. She did initially have an anion gap of 20 and a CO2 of 19. While here in the emergency department we did give her a total of 3 L of crystalloid as well as a total of 30 of potassium IV and 40 orally. She did receive droperidol and Zofran. Following these medications she was tolerating clear liquids. I did repeat her BMP and found that her gap had closed and her CO2 had risen to 22. I suspect she had a mild episode of DKA that has improved following fluids and antiemetic. Patient is requesting to be discharged home. A prescription for some Zofran and further doses of Potassium have been sent to her preferred pharmacy. She is advised to reconsider her use of cannabis moving forward. Otherwise emergent return precautions discussed. Departure - Departure Disposition: Home, Self Care Clinical Impression: Hypokalemia, Cannabis use disorder, Hyponatremia Nausea and vomiting Qualifiers: Vomiting type: unspecified Qualified Code(s): R11.2 - Nausea with vomiting, unspecified DKA (diabetic ketoacidosis) Qualifiers: Diabetes mellitus type: type 1 Diabetes mellitus complication detail: without coma Qualified Code(s): E10.10 - Type 1 diabetes mellitus with ketoacidosis without coma Condition: Serious Record reviewed to determine appropriate education?: Yes Follow-Up: Michaela Garsia ARNP [Primary Care Provider] - Prescriptions: Potassium Chloride [K-Dur] 20 meq PO DAILY #7 tablet Ondansetron Odt [Zofran] 4 mg TL Q6H PRN #10 tablet PRN Reason: Nausea / Vomiting Comments: Belinda you came into the emergency department because you have been vomiting for the last few days. Because of this he have not been able to take your insulins and you developed a very mild DKA. Here in the emergency department we did give you some IV fluids as well as potassium for your low potassium level. I have sent a prescription for some Zofran and potassium to the pharmacy. I suspect that the cause of your vomiting however may have been the cannabis use Tuesday night. You have had similar reactions to cannabis in the past. Uncontrolled vomiting can be very serious and diabetic so I encourage you to reconsider your use of cannabis moving forward. Please discuss this ED visit with your primary care provider. I would like you to be seen in follow-up within the next week.
[2021-11-16 11:56] LABS: KETONES, SERUM (ACETEST) SMALL (NEGATIVE)
[2021-11-16 12:06] LABS: ALBUMIN 4.1 g/dL (3.2-5.5); ALBUMIN/GLOBULIN RATIO 1.1 (1.0-2.2); ALKALINE PHOSPHATASE 67 IU/L (42-121); ALT ALANINE AMINOTRANSFERASE 38 IU/L (10-60); AST ASPARTATE AMINOTRANSFERASE 41 IU/L (10-42); BILIRUBIN,TOTAL 1.3 mg/dL (0.2-1.0); BUN - BLOOD UREA NITROGEN 33 mg/dL (6-20); CARBON DIOXIDE - CO2 19 mmol/L (21-32); CHLORIDE 91 mmol/L (101-111); CREATININE 1.6 mg/dL (0.4-1.0); GFR - MDRD 32 (>89); GLUCOSE 203 mg/dL (70-100); LIPASE 26 U/L (22-51); MAGNESIUM 1.7 mg/dL (1.7-2.8); PHOSPHORUS 3.2 mg/dL (2.5-4.6); SODIUM 130 mmol/L (135-145); TOTAL PROTEIN 7.7 g/dL (6.7-8.2)
[2021-11-16 12:10] LABS: POTASSIUM 2.5 mmol/L (3.5-5.0)
[2021-11-16] MEDS: POTASSIUM CHLOR 10 MEQ/100 ML 10 MEQ/100 ML BAG IV SCH ×4 (12:28→16:45)
--- NOTE | 2021-11-16 13:21 | CT Report ---
PROCEDURE: Abdomen/Pelvis WO INDICATIONS: n/v TECHNIQUE: Noncontrast 5 mm thick sections acquired from the diaphragms to the symphysis. 5 mm coronal and sagi ttal reformats were then performed. For radiation dose reduction, the following was used: automated exposure control, adjustment of mA and/or kV according to patient size. COMPARISON: CT abdomen pelvis 11/01/2020 FINDINGS: Image quality: Excellent. ABDOMEN: Lung bases: Lung bases are clear. Heart size is normal. Solid organs: Liver is mildly enlarged measuring 17.6 cm with steatosis. The spleen is unremarkable. Gallbladder is unremarkable. Pancreas is normal in contours. No adrenal nodules. Kidneys are norm al in size, without hydronephrosis or nephrolithiasis. Low-attenuation left renal foci are present m ost consistent with simple cysts. Peritoneum and bowel: Unenhanced bowel loops demonstrate normal wall thickness and caliber. No free fluid or air. Colonic diverticula are present without associated inflammatory change. Nodes and vessels: No retroperitoneal or mesenteric adenopathy by size criteria. Aorta and inferior vena cava are normal in caliber. Miscellaneous: No ventral hernias. PELVIS: Genitourinary: Bladder wall thickness is normal. Miscellaneous: No inguinal hernias or adenopathy. Bones: Pars defect is noted at L5. No vertebral body compression fractures. IMPRESSION: Diverticulosis. Hepatic steatosis. Reviewed by: Dunia Alonso MD on 11/16/2021 1:20 PM PDT Approved by: Dunia Alonso MD on 11/16/2021 1:20 PM PDT Station ID: [id number]
[2021-11-16 13:29] LABS: MUDS CUTOFF CONCENTRATIONS CUTOFF CONC BELOW:
[2021-11-16 13:38] LABS: GLUCOSE, URINE (UA) NEGATIVE (NEGATIVE); KETONES,URINE (UA) 15 mg/dL (NEGATIVE); LEUKOCYTE ESTERASE, URINE NEGATIVE (NEGATIVE); NITRITE,URINE NEGATIVE (NEGATIVE); OCCULT BLOOD,URINE NEGATIVE (NEGATIVE); PROTEIN,URINE NEGATIVE (NEGATIVE); UROBILINOGEN,URINE 0.2 (NORMAL) E.U./dL (NORMAL)
[2021-11-16 13:44] LABS: CLARITY,URINE CLEAR (CLEAR)
[2021-11-16 13:50] LABS: BILIRUBIN,URINE NEGATIVE (NEGATIVE); ICTOTEST,URINE NEGATIVE
[2021-11-16 13:51] LABS: AMPHETAMINE SCREEN,URINE NEGATIVE (NEGATIVE); BARBITURATE SCREEN,UR NEGATIVE (NEGATIVE); BENZODIAZEPINES SCREEN, URINE NEGATIVE (NEGATIVE); COCAINE SCREEN URINE NEGATIVE (NEGATIVE); METHADONE SCREEN, URINE NEGATIVE (NEGATIVE); METHAMPHETAMINES SCREEN, URINE NEGATIVE (NEGATIVE); OPIATE SCREEN, URINE POSITIVE (NEGATIVE); OXYCODONE SCREEN, URINE NEGATIVE (NEGATIVE); PROPOXYPHENE SCREEN, URINE NEGATIVE (NEGATIVE); THC CANNABINOID SCREEN, URINE POSITIVE (NEGATIVE); TRICYCLIC ANTIDEPRESSANT,URINE POSITIVE (NEGATIVE)
[2021-11-16] MEDS ORDERED: POTASSIUM CHLORIDE 20 MEQ TABLET PO STA ×2 (13:55→16:30)
[2021-11-16] MEDS ORDERED: INSULIN REGULAR HUMAN 100 UNIT/1 ML 10 ML MDV IVP STA (13:55)
[2021-11-16] MEDS ORDERED: SUCRALFATE 1 GM/10 ML UDC PO STA (13:59)
[2021-11-16] MEDS ORDERED: DROPERIDOL 5 MG/2 ML VIAL IVP STA (13:59)
[2021-11-16 15:40] LABS: KETONES, SERUM (ACETEST) SMALL (NEGATIVE)
[2021-11-16 15:42] LABS: BUN - BLOOD UREA NITROGEN 30 mg/dL (6-20); CALCIUM 7.8 mg/dL (8.5-10.3); CARBON DIOXIDE - CO2 22 mmol/L (21-32); CHLORIDE 96 mmol/L (101-111); CREATININE 1.3 mg/dL (0.4-1.0); GFR - MDRD 41 (>89); GLUCOSE 110 mg/dL (70-100); POTASSIUM 2.8 mmol/L (3.5-5.0); SODIUM 129 mmol/L (135-145)
[2021-11-16 16:43] VITALS: BP 137/78
== END 2021-11-16 17:02 | disposition home or self-care (01) ==
LOC: ED 10:48
DX: E10.10 Type 1 diabetes mellitus with ketoacidosis without coma (principal); E87.6 Hypokalemia; R11.2 Nausea with vomiting, unspecified; F32.A Depression, unspecified; I25.10 Atherosclerotic heart disease of native coronary artery without angina pectoris; I25.2 Old myocardial infarction; I48.91 Unspecified atrial fibrillation; E10.40 Type 1 diabetes mellitus with diabetic neuropathy, unspecified; E10.319 Type 1 diabetes mellitus with unspecified diabetic retinopathy without macular edema; I11.0 Hypertensive heart disease with heart failure; I50.9 Heart failure, unspecified
CPT/HCPCS: 36415; 71045; 74176; 80048; 80053; 80306; 81003; 82009; 83605; 83690; 83735; 84100; 85025; 93005; 96361; 96374; 96375; 99284; A9270; J1170; 81001; 84484; 87086

== ENCOUNTER 2021-11-17 18:13 | Emergency (ER) | payer MEDICAID ==
[2021-11-17] MEDS ORDERED: SODIUM CHLORIDE 0.9% 1,000 ML IV STA ×2 (18:35→21:20)
[2021-11-17] MEDS ORDERED: HYDROmorphone 1 MG/ML CARPUJECT IVP STA (18:58)
[2021-11-17] MEDS ORDERED: DROPERIDOL 5 MG/2 ML VIAL IVP STA (18:58)
--- NOTE | 2021-11-17 19:19 | ED Physician Documentation ---
History of Present Illness - Stated complaint Stated Complaint: DIABETIC ISSUE - Chief complaint Chief Complaint: Abd Pain - History obtained from History obtained from: Patient - History of Present Illness Timing: Yesterday Pain level max: 8 Pain level now: 8 - Additonal information Additional information: Patient is a 66-year-old female who presents to the emergency department with nausea, vomiting and abdominal pain. Was seen here yesterday for same. Symptoms have continued today. 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 She does use marijuana multiple times daily. She is diabetic. No fevers. No diarrhea. No blood in the stool or vomit. Complains of diffuse abdominal pain. Worse with vomiting. Nothing makes it better. 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, Other : None HEENT: Other Psych: Depression, Anxiety Musculoskeletal: None Derm: Other - Past Surgical History Past Surgical History: Yes /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 HEENT: Tonsil/Adenoidectomy - Present Medications Home Medications: Ambulatory Orders Medication Instructions Recorded Confirmed Insulin Glargine [Lantus Solostar] 35 units SUBQ BID 05/28/17 11/17/21 Insulin Lispro [Humalog] 6 units SUBQ TIDWM 05/28/17 11/17/21 lisinopriL [Lisinopril] 40 mg PO DAILY 05/28/17 11/17/21 hydrOXYzine pamoate [Hydroxyzine 1 cap PO Q4H PRN 11/11/17 01/13/21 Pamoate] Apixaban [Eliquis] 5 mg PO BID 08/12/18 11/17/21 Chlorthalidone 25 mg PO DAILY 08/12/18 11/17/21 Fluticasone [Flonase] 1 sprays NEGRITA BID 08/12/18 11/17/21 PARoxetine HCL [Paroxetine HCl] 40 mg PO DAILY 08/12/18 11/17/21 HYDROcod/ACETAM 5/325 [[place] 5/325] 1 ea PO Q6H PRN #15 tablet 10/31/20 11/17/21 Nitroglycerin [Nitrostat] 0.4 mg SL PRN PRN 11/01/20 11/17/21 Nystatin [Nystop] 1 applic TOP BID 11/01/20 11/17/21 Omeprazole Magnesium 20 mg PO DAILY 11/01/20 11/17/21 metFORMIN [Glucophage] 500 mg PO BID 11/01/20 11/17/21 Famotidine [Pepcid] 20 mg PO DAILY #20 tablet 01/13/21 11/17/21 Ondansetron Odt [Zofran] 4 mg TL Q6H PRN #10 tablet 11/16/21 11/17/21 Potassium Chloride [K-Dur] 20 meq PO DAILY #7 tablet 11/16/21 11/17/21 Oxycodone HCl [Roxicodone] 5 - 10 mg PO Q6H PRN #14 tablet 11/17/21 Promethazine [Phenergan] 25 mg PO Q6H PRN #10 tablet 11/17/21 - Allergies Allergies/Adverse Reactions: Allergies Allergy/AdvReac Type Severity Reaction Status Date / Time No Known Drug Allergies Allergy Verified 11/17/21 18:25 - Social History Does the pt smoke?: No Smoking Status: Never smoker Does the pt drink ETOH?: Yes Does the pt have substance abuse?: Yes - Immunizations Immunizations are current?: No Immunizations: TDAP >10years/unknown - POLST Patient has POLST: No POLST Status: Full Code PD ED PE NORMAL - Vitals Vital signs reviewed: Yes - General General: Alert and oriented X 3, No acute distress - HEENT HEENT: PERRL, Moist mucous membranes - Neck Neck: Supple, no meningeal sign - Cardiac Cardiac: RRR, Strong equal pulses - Respiratory Respiratory: No respiratory distress, Clear bilaterally - Abdomen Abdomen: Soft, Non distended, Other (Mild diffuse tenderness to palpation. No peritoneal signs) - Back Back: No CVA TTP, No spinal TTP - Derm Derm: Warm and dry, No rash - Extremities Extremities: No edema, No calf tenderness / cord - Neuro Neuro: Alert and oriented X 3 - Psych Psych: Normal mood, Normal affect Results - Vitals Vitals: Vital Signs - 24 hr 11/17/21 11/17/21 11/17/21 18:25 18:31 19:34 Temperature 36.3 C L 36.5 C Heart Rate 88 88 74 Respiratory 26 H 26 H 18 Rate Blood Pressure 211/92 H 211/92 H 137/66 H O2 Saturation 100 100 98 11/17/21 21:00 Temperature Heart Rate 90 Respiratory 22 Rate Blood Pressure 173/84 H O2 Saturation 98 Oxygen O2 Source Room air - Labs Labs: Laboratory Tests 11/17/21 11/17/21 11/17/21 18:30 21:11 21:11 WBC 11.7 H RBC 4.07 L Hgb 12.1 Hct 35.1 L MCV 86.2 MCH 29.7 MCHC 34.5 RDW 13.3 Plt Count 217 MPV 11.9 H Neut # (Auto) 7.4 H Lymph # (Auto) 3.2 [place] # (Auto) 0.9 Eos # (Auto) 0.1 Baso # (Auto) 0.0 Absolute Nucleated RBC 0.00 Nucleated RBC % 0.0 VBG pH VBG pCO2 VBG pO2 VBG HCO3 VBG Total CO2 VBG O2 Saturation VBG Base Excess Sodium 134 L Potassium 2.9 L Chloride 101 Carbon Dioxide 22 Anion Gap 11.0 BUN 23 H Creatinine 1.3 H Estimated GFR (MDRD) 41 L Glucose 94 POC Whole Bld Glucose 138 H Calcium 8.4 L Total Bilirubin 0.9 AST 35 ALT 38 Alkaline Phosphatase 69 Total Protein 6.5 L Albumin 3.6 Globulin 2.9 Albumin/Globulin Ratio 1.2 Lipase 27 Serum Ketones NEGATIVE 11/17/21 21:11 WBC RBC Hgb Hct MCV MCH MCHC RDW Plt Count MPV Neut # (Auto) Lymph # (Auto) [place] # (Auto) Eos # (Auto) Baso # (Auto) Absolute Nucleated RBC Nucleated RBC % VBG pH 7.422 H VBG pCO2 33.9 L VBG pO2 47.3 H VBG HCO3 21.6 L VBG Total CO2 22.6 L VBG O2 Saturation 83.4 H VBG Base Excess -2.2 L Sodium Potassium Chloride Carbon Dioxide Anion Gap BUN Creatinine Estimated GFR (MDRD) Glucose POC Whole Bld Glucose Calcium Total Bilirubin AST ALT Alkaline Phosphatase Total Protein Albumin Globulin Albumin/Globulin Ratio Lipase Serum Ketones PD MEDICAL DECISION MAKING - ED course Complexity details: reviewed results, re-evaluated patient (Abdomen is soft, nontender nondistended on serial exam), considered differential, d/w patient, d/w family ED course: 66-year-old female with likely cannabinoid induced hyperemesis complicating her diabetes. Given droperidol, Dilaudid, IV fluids. Oral potassium and oral hydromorphone. Pain well controlled. No longer vomiting. Tolerating p.o. with out difficulty here. Has Zofran for home. We will add Phenergan. We will have the patient follow-up with her doctor for further care. Patient slept for several hours in the emergency department. Patient counseled regarding signs and symptoms for which I believe and urgent re-evaluation would be necessary. Patient with good understanding of and agreement to plan and is comfortable going home at this time This document was made in part using voice recognition software. While efforts are made to proofread this document, sound alike and grammatical errors may occur. Patient was given a prepack of Percocet for home. Departure - Departure Disposition: Home, Self Care Clinical Impression: Nausea and vomiting Qualifiers: Vomiting type: unspecified Qualified Code(s): R11.2 - Nausea with vomiting, unspecified Abdominal pain Qualifiers: Abdominal location: generalized Qualified Code(s): R10.84 - Generalized abdominal pain Condition: Good Instructions: ED Nausea Vomiting Follow-Up: Michaela Garsia ARNP [Primary Care Provider] - Within 1 week Prescriptions: Promethazine [Phenergan] 25 mg PO Q6H PRN #10 tablet PRN Reason: Nausea / Vomiting Oxycodone HCl [Roxicodone] 5 - 10 mg PO Q6H PRN #14 tablet PRN Reason: Pain Comments: Your prescriptions were sent to [facility] in [place]. Please follow-up with your doctor for further care. Return if you worsen. Go home and rest tonight. I am prescribing a short course of narcotic pain medication for you. These are potentially dangerous and addictive medications that should be used carefully. These medications may constipate you. Take an issm-pyg-xbjkydt stool softener (docusate) twice daily with plenty of water while taking these medications. If you go 24 hours without a bowel movement, take [id number] miralax, per package instructions. Do not drink or drive while taking these medications. If you received narcotic or sedating medications while in the emergency department, do not drive for 24 hours. Store this medication in a safe, secure place and out of reach of children. It is a violation of federal law to give or sell this medication to another person or to use in a manner other than prescribed. The ED will not refill narcotic prescriptions, including prescriptions lost or stolen. To dispose of unwanted medications: 1. [facility] at [address] in [place] has a medication drop box. They accept prescription medications (in pill form) Tuesday through Tuesday 9:00 a.m. to 5:00 p.m. 2. The [facility] [employer] accepts prescription medications (in pill form only) for disposal year round. Call for more information. 3. Contact the [facility] for the next [facility] sponsored prescription drug collection event. , [phone], or [phone];
[2021-11-17 21:20] LABS: BASOPHILS % (AUTO) 0.3 %; EOSINOPHILS # (AUTO) 0.1 10^3/uL (0.0-0.7); EOSINOPHILS % (AUTO) 0.4 %; HCT - HEMATOCRIT 35.1 % (37.0-47.0); HGB - HEMOGLOBIN 12.1 g/dL (12.0-16.0); LYMPHOCYTES # (AUTO) 3.2 10^3/uL (1.5-3.5); LYMPHOCYTES % (AUTO) 27.5 %; MEAN CORPUSCULAR HEMOGLOBIN 29.7 pg (27.0-31.0); MEAN CORPUSCULAR HGB CONC 34.5 g/dL (32.0-36.0); MEAN CORPUSCULAR VOLUME 86.2 fL (81.0-99.0); MEAN PLATELET VOLUME 11.9 fL (7.9-10.8); MONOCYTES # (AUTO) 0.9 10^3/uL (0.0-1.0); NEUTROPHILS # (AUTO) 7.4 10^3/uL (1.5-6.6); NEUTROPHILS % (AUTO) 63.2 %; PLT - PLATELET COUNT 217 10^3/uL (130-450); RED BLOOD COUNT 4.07 10^6/uL (4.20-5.40); RED CELL DISTRIBUTION WIDTH 13.3 % (12.0-15.0); WHITE BLOOD COUNT 11.7 x10^3/uL (4.8-10.8)
[2021-11-17 21:25] LABS: VBG BASE EXCESS -2.2 mmol/L (-2 - +2); VBG HCO3 21.6 mmol/L (23-28); VBG OXYGEN SATURATION 83.4 % (60-80); VBG PCO2 33.9 mmHg (41-51); VBG PH 7.422 (7.31-7.41); VBG PO2 47.3 mmHg (25-47); VBG TOTAL CO2 22.6 mmol/L (24-29)
[2021-11-17 21:26] LABS: KETONES, SERUM (ACETEST) NEGATIVE (NEGATIVE)
[2021-11-17 21:36] LABS: ALBUMIN 3.6 g/dL (3.2-5.5); ALBUMIN/GLOBULIN RATIO 1.2 (1.0-2.2); ALKALINE PHOSPHATASE 69 IU/L (42-121); ALT ALANINE AMINOTRANSFERASE 38 IU/L (10-60); AST ASPARTATE AMINOTRANSFERASE 35 IU/L (10-42); BILIRUBIN,TOTAL 0.9 mg/dL (0.2-1.0); BUN - BLOOD UREA NITROGEN 23 mg/dL (6-20); CALCIUM 8.4 mg/dL (8.5-10.3); CARBON DIOXIDE - CO2 22 mmol/L (21-32); CHLORIDE 101 mmol/L (101-111); CREATININE 1.3 mg/dL (0.4-1.0); GFR - MDRD 41 (>89); GLUCOSE 94 mg/dL (70-100); LIPASE 27 U/L (22-51); POTASSIUM 2.9 mmol/L (3.5-5.0); SODIUM 134 mmol/L (135-145); TOTAL PROTEIN 6.5 g/dL (6.7-8.2)
[2021-11-17] MEDS ORDERED: POTASSIUM CHLORIDE 20 MEQ TABLET PO STA (21:36)
[2021-11-17] MEDS ORDERED: HYDROmorphone 2 MG TABLET PO STA (21:57)
[2021-11-17] MEDS ORDERED: oxyCODONE/ACET 5/325 Prepack 4 PO STA (21:57)
[2021-11-17 22:56] VITALS: BP 140/80
== END 2021-11-17 22:54 | disposition home or self-care (01) ==
LOC: ED 18:13
DX: R11.2 Nausea with vomiting, unspecified (principal); R10.84 Generalized abdominal pain; E10.42 Type 1 diabetes mellitus with diabetic polyneuropathy; Z79.4 Long term (current) use of insulin; I10 Essential (primary) hypertension; I48.91 Unspecified atrial fibrillation
CPT/HCPCS: 36415; 80053; 82009; 82803; 83690; 85025; 96374; 96375; 99283; 99284; A9270; J1170; 81001; 81003; 87086

== ENCOUNTER 2021-11-20 09:38 | Outpatient (CLI) | payer MEDICAID | END 2021-11-20 09:39 | disposition critical access hospital (66) | LOC: EMS 09:38 | DX: M62.831 Muscle spasm of calf (principal); F41.9 Anxiety disorder, unspecified; R46.89 Other symptoms and signs involving appearance and behavior | CPT/HCPCS: A0425; A0429 ==

== ENCOUNTER 2022-06-18 13:48 | Outpatient (CLI) | payer MEDICARE, MEDICAID ==
[2022-06-18 19:46] LABS: BASOPHILS # (AUTO) 0.1 10^3/uL (0.0-0.1); BASOPHILS % (AUTO) 0.7 %; EOSINOPHILS # (AUTO) 0.8 10^3/uL (0.0-0.7); EOSINOPHILS % (AUTO) 6.1 %; HCT - HEMATOCRIT 34.2 % (37.0-47.0); HGB - HEMOGLOBIN 10.6 g/dL (12.0-16.0); LYMPHOCYTES # (AUTO) 3.7 10^3/uL (1.5-3.5); LYMPHOCYTES % (AUTO) 28.9 %; MEAN CORPUSCULAR HEMOGLOBIN 28.1 pg (27.0-31.0); MEAN CORPUSCULAR VOLUME 90.7 fL (81.0-99.0); MEAN PLATELET VOLUME 12.8 fL (7.9-10.8); MONOCYTES # (AUTO) 0.9 10^3/uL (0.0-1.0); MONOCYTES % (AUTO) 6.8 %; NEUTROPHILS # (AUTO) 7.4 10^3/uL (1.5-6.6); NEUTROPHILS % (AUTO) 56.9 %; PLT - PLATELET COUNT 237 10^3/uL (130-450); RED BLOOD COUNT 3.77 10^6/uL (4.20-5.40); RED CELL DISTRIBUTION WIDTH 14.6 % (12.0-15.0)
[2022-06-18 19:58] LABS: ALBUMIN 3.5 g/dL (3.2-5.5); ALBUMIN/GLOBULIN RATIO 0.9 (1.0-2.2); ALKALINE PHOSPHATASE 61 IU/L (42-121); ALT ALANINE AMINOTRANSFERASE 25 IU/L (10-60); AST ASPARTATE AMINOTRANSFERASE 22 IU/L (10-42); BILIRUBIN,TOTAL 0.4 mg/dL (0.2-1.0); BUN - BLOOD UREA NITROGEN 24 mg/dL (6-20); CALCIUM 8.9 mg/dL (8.5-10.3); CARBON DIOXIDE - CO2 28 mmol/L (21-32); CHLORIDE 104 mmol/L (101-111); CHOL/HDL RATIO 2.4 (<4.4); CHOLESTEROL 102 mg/dL; GFR - MDRD 56 (>89); GLUCOSE 137 mg/dL (70-100); HDL CHOLESTEROL 42 mg/dL; LDL CHOLESTEROL,CALCULATED 36 mg/dL; LDL/HDL RATIO 0.9 (<4.4); POTASSIUM 3.8 mmol/L (3.5-5.0); SODIUM 143 mmol/L (135-145); TOTAL PROTEIN 7.4 g/dL (6.7-8.2); TRIGLYCERIDES 119 mg/dL; VLDL CHOLESTEROL 24 mg/dL
[2022-06-18 20:09] LABS: THYROID STIMULATING HORMONE 16.66 uIU/mL (0.34-5.60)
[2022-06-18 20:57] LABS: FREE T4 (FREE THYROXINE) 1.19 ng/dL (0.58-1.64)
[2022-06-18 21:09] LABS: ESTIMATED AVERAGE GLUCOSE 226 mg/dL (70-100); HEMOGLOBIN A1c% 9.5 % (4.27-6.07)
== END 2022-06-18 13:49 | disposition home or self-care (01) ==
LOC: LAB.S 13:48
PROVIDERS: ATTEND Registered Nurse
DX: I10 Essential (primary) hypertension (principal); E78.5 Hyperlipidemia, unspecified; E10.8 Type 1 diabetes mellitus with unspecified complications; Z79.899 Other long term (current) drug therapy
CPT/HCPCS: 36415; 80053; 80061; 83036; 83721; 84439; 84443; 85025

== ENCOUNTER 2022-09-20 14:16 | Outpatient (CLI) | payer MEDICARE, MEDICAID ==
[2022-09-20 21:27] LABS: THYROID STIMULATING HORMONE 1.05 uIU/mL (0.34-5.60)
== END 2022-09-20 14:17 | disposition home or self-care (01) ==
LOC: LAB.S 14:16
PROVIDERS: ATTEND Registered Nurse
DX: E03.9 Hypothyroidism, unspecified (principal)
CPT/HCPCS: 36415; 84443

== ENCOUNTER 2023-04-07 13:08 | Emergency (ER) | payer MEDICARE ==
--- NOTE | 2023-04-07 14:38 | XRAY Report ---
PROCEDURE: Chest 1V INDICATIONS: SOA/DIFF BREATHING TECHNIQUE: One view of the chest was acquired. COMPARISON: Chest radiograph 11/17/2019. FINDINGS: Surgical changes and devices: None. Lungs and pleura: No pleural effusions or pneumothorax. Lungs are clear. Mediastinum: Mediastinal contours appear normal. Heart size is mildly enlarged. Bones and chest wall: No suspicious bony lesions. Overlying soft tissues appear unremarkable. IMPRESSION: Cardiomegaly Reviewed by: Concepción Salcido MD on 04/07/2023 2:37 PM PST Approved by: Concepción Salcido MD on 04/07/2023 2:37 PM PST Station ID: [id number]
[2023-04-07 15:21] LABS: BASOPHILS # (AUTO) 0.1 10^3/uL (0.0-0.1); BASOPHILS % (AUTO) 0.9 %; EOSINOPHILS # (AUTO) 0.1 10^3/uL (0.0-0.7); EOSINOPHILS % (AUTO) 1.2 %; HCT - HEMATOCRIT 26.9 % (37.0-47.0); HGB - HEMOGLOBIN 7.8 g/dL (12.0-16.0); LYMPHOCYTES # (AUTO) 2.8 10^3/uL (1.5-3.5); LYMPHOCYTES % (AUTO) 24.5 %; MEAN CORPUSCULAR HEMOGLOBIN 23.4 pg (27.0-31.0); MEAN CORPUSCULAR VOLUME 80.5 fL (81.0-99.0); MEAN PLATELET VOLUME 11.3 fL (7.9-10.8); MONOCYTES # (AUTO) 1.1 10^3/uL (0.0-1.0); MONOCYTES % (AUTO) 10.1 %; NEUTROPHILS # (AUTO) 7.1 10^3/uL (1.5-6.6); NEUTROPHILS % (AUTO) 62.8 %; NRBC ABSOLUTE COUNT (AUTO) 0.03 x10^3/uL; NUCLEATED RED BLOOD CELLS AUTO 0.3 /100WBC; PLT - PLATELET COUNT 343 10^3/uL (130-450); RED BLOOD COUNT 3.34 10^6/uL (4.20-5.40); RED CELL DISTRIBUTION WIDTH 17.7 % (12.0-15.0); WHITE BLOOD COUNT 11.3 x10^3/uL (4.8-10.8)
[2023-04-07 15:22] LABS: MAGNESIUM 1.3 mg/dL (1.7-2.3)
[2023-04-07 15:28] LABS: ALBUMIN 3.6 g/dL (3.2-5.5); ALBUMIN/GLOBULIN RATIO 1.3 (1.0-2.2); BILIRUBIN,TOTAL 0.6 mg/dL (0.2-1.0); CALCIUM 9.4 mg/dL (8.5-10.3); CREATININE 1.3 mg/dL (0.6-1.3); TOTAL PROTEIN 6.4 g/dL (6.4-8.9)
--- NOTE | 2023-04-07 15:32 | ED Physician Documentation ---
PD HPI DYSPNEA - Stated complaint Stated Complaint: SOA - Chief complaint Chief Complaint: Resp - Additional information Additional information: 67-year-old female presents emergency department today for shortness of breath. Patient says that about 12 days ago she started feeling increased shortness of breath mostly at nighttime when she sleeping. She has type 1 diabetes and feels like her blood sugar overall has been well-controlled. She says when she wakes up in the [place] and tries to walk to the bathroom she feels like she is unable to fully expand her lungs. She said that she does have a history of [place] she did require 1 stent. This does not necessarily feel similar to that. Patient says she is worried about possible MS or asthma. She is able to speak in full sentences without any difficulty. PD PAST MEDICAL HISTORY - Past Medical History Past Medical History: Yes Cardiovascular: Congestive heart failure, Hypertension, Angina, [place], Atrial fibrillation, Arrhythmia, Other Respiratory: None Neuro: Peripheral neuropathy, Other Endocrine/Autoimmune: Type 1 diabetes GI: None RN MENTAL HEALTH: None, Other : None HEENT: Other Psych: Depression, Anxiety Musculoskeletal: None Derm: Other - Past Surgical History Past Surgical History: Yes /RN MENTAL HEALTH: section HEENT: Tonsil/Adenoidectomy - Present Medications Home Medications: Ambulatory Orders Medication Instructions Recorded Confirmed Insulin Glargine [Lantus Solostar] 35 units SUBQ BID 05/28/17 04/07/23 Insulin Lispro [Humalog] 6 units SUBQ TIDWM 05/28/17 04/07/23 lisinopriL [Lisinopril] 40 mg PO DAILY 05/28/17 04/07/23 hydrOXYzine pamoate [Hydroxyzine 1 cap PO Q4H PRN 11/11/17 04/07/23 Pamoate] Apixaban [Eliquis] 5 mg PO BID 08/12/18 04/07/23 Chlorthalidone 25 mg PO DAILY 08/12/18 04/07/23 Fluticasone [Flonase] 1 sprays NEGRITA BID 08/12/18 04/07/23 PARoxetine HCL [Paroxetine HCl] 40 mg PO DAILY 08/12/18 04/07/23 Nitroglycerin [Nitrostat] 0.4 mg SL PRN PRN 11/01/20 04/07/23 Nystatin [Nystop] 1 applic TOP BID 11/01/20 11/17/21 Omeprazole Magnesium 20 mg PO DAILY 11/01/20 04/07/23 metFORMIN [Glucophage] 500 mg PO BID 11/01/20 04/07/23 Famotidine [Pepcid] 20 mg PO DAILY #20 tablet 01/13/21 04/07/23 Potassium Chloride [K-Dur] 20 meq PO DAILY #7 tablet 11/16/21 04/07/23 Furosemide [Lasix] 20 mg PO DAILY #5 tablet 04/07/23 - Allergies Allergies/Adverse Reactions: Allergies Allergy/AdvReac Type Severity Reaction Status Date / Time No Known Drug Allergies Allergy Verified 04/07/23 13:20 - Social History Does the pt smoke?: No Smoking Status: Never smoker Does the pt drink ETOH?: Yes Does the pt have substance abuse?: Yes - Immunizations Immunizations are current?: No Immunizations: TDAP >10years/unknown - POLST Patient has POLST: No POLST Status: Full Code PD ED PE NORMAL - Vitals Vital signs reviewed: Yes - General General: Alert and oriented X 3, No acute distress, Well developed/nourished - HEENT HEENT: Atraumatic, PERRL - Neck Neck: Supple, no meningeal sign, No JVD - Cardiac Cardiac: RRR, No murmur, No gallop, Strong equal pulses - Respiratory Respiratory: No respiratory distress, Clear bilaterally - Abdomen Abdomen: Normal bowel sounds - Derm Derm: Normal color, Warm and dry, No rash - Extremities Extremities: No edema, No calf tenderness / cord - Neuro Neuro: Alert and oriented X 3, 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 Relevant findings are: Rate: Rate (enter#) (59) Rhythm: NSR [place]: LAD Intervals: Normal [place] QRS: Normal Ischemia: Normal ST segments Other comments: Other comments (Left atrial enlargement) Computer interpretation: Agree with computer - Labs Labs: Laboratory Tests 04/07/23 04/07/23 04/07/23 15:06 15:06 15:06 WBC 11.3 H RBC 3.34 L Hgb 7.8 L Hct 26.9 L MCV 80.5 L MCH 23.4 L MCHC 29.0 L RDW 17.7 H Plt Count 343 MPV 11.3 H Neut # (Auto) 7.1 H Lymph # (Auto) 2.8 [place] # (Auto) 1.1 H Eos # (Auto) 0.1 Baso # (Auto) 0.1 Absolute Nucleated RBC 0.03 Nucleated RBC % 0.3 Sodium 141 Potassium 4.0 Chloride 106 Carbon Dioxide 27 Anion Gap 8.0 BUN 34 H Creatinine 1.3 Estimated GFR (MDRD) 41 L Glucose 77 POC Whole Bld Glucose Calcium 9.4 Magnesium 1.3 L Total Bilirubin 0.6 AST 35 ALT 29 Alkaline Phosphatase 65 B-Natriuretic Peptide Total Protein 6.4 Albumin 3.6 Globulin 2.8 Albumin/Globulin Ratio 1.3 TSH 2.15 Nasal Adenovirus (PCR) Nasal B. parapertussis DNA (PCR) Nasal Coronavir 229E PCR Nasal Coronavir HKU1 PCR Nasal Coronavir NL63 PCR Nasal Coronavir OC43 PCR Nasal Enterovir/Rhinovir PCR Nasal Influenza B PCR Nasal Influenza A PCR Nasal Parainfluen 1 PCR Nasal Parainfluen 2 PCR Nasal Parainfluen 3 PCR Nasal Parainfluen 4 PCR Nasal RSV (PCR) Nasal B.pertussis DNA PCR Nasal C.pneumoniae (PCR) [place] Human Metapneumo PCR Nasal M.pneumoniae (PCR) Nasal SARS-CoV-2 (PCR) 04/07/23 04/07/23 04/07/23 15:06 15:19 20:35 WBC RBC Hgb Hct MCV MCH MCHC RDW Plt Count MPV Neut # (Auto) Lymph # (Auto) [place] # (Auto) Eos # (Auto) Baso # (Auto) Absolute Nucleated RBC Nucleated RBC % Sodium Potassium Chloride Carbon Dioxide Anion Gap BUN Creatinine Estimated GFR (MDRD) Glucose POC Whole Bld Glucose 30 L* Calcium Magnesium Total Bilirubin AST ALT Alkaline Phosphatase B-Natriuretic Peptide 1002 H Total Protein Albumin Globulin Albumin/Globulin Ratio TSH Nasal Adenovirus (PCR) NOT DETECTED Nasal B. parapertussis DNA (PCR) NOT DETECTED Nasal Coronavir 229E PCR NOT DETECTED Nasal Coronavir HKU1 PCR NOT DETECTED Nasal Coronavir NL63 PCR NOT DETECTED Nasal Coronavir OC43 PCR NOT DETECTED Nasal Enterovir/Rhinovir PCR NOT DETECTED Nasal Influenza B PCR NOT DETECTED Nasal Influenza A PCR NOT DETECTED Nasal Parainfluen 1 PCR NOT DETECTED Nasal Parainfluen 2 PCR NOT DETECTED Nasal Parainfluen 3 PCR NOT DETECTED Nasal Parainfluen 4 PCR NOT DETECTED Nasal RSV (PCR) NOT DETECTED Nasal B.pertussis DNA PCR NOT DETECTED Nasal C.pneumoniae (PCR) NOT DETECTED [place] Human Metapneumo PCR NOT DETECTED Nasal M.pneumoniae (PCR) NOT DETECTED Nasal SARS-CoV-2 (PCR) NOT DETECTED 04/07/23 04/07/23 21:13 21:26 WBC RBC Hgb Hct MCV MCH MCHC RDW Plt Count MPV Neut # (Auto) Lymph # (Auto) [place] # (Auto) Eos # (Auto) Baso # (Auto) Absolute Nucleated RBC Nucleated RBC % Sodium Potassium Chloride Carbon Dioxide Anion Gap BUN Creatinine Estimated GFR (MDRD) Glucose POC Whole Bld Glucose 41 L* 62 L Calcium Magnesium Total Bilirubin AST ALT Alkaline Phosphatase B-Natriuretic Peptide Total Protein Albumin Globulin Albumin/Globulin Ratio TSH Nasal Adenovirus (PCR) Nasal B. parapertussis DNA (PCR) Nasal Coronavir 229E PCR Nasal Coronavir HKU1 PCR Nasal Coronavir NL63 PCR Nasal Coronavir OC43 PCR Nasal Enterovir/Rhinovir PCR Nasal Influenza B PCR Nasal Influenza A PCR Nasal Parainfluen 1 PCR Nasal Parainfluen 2 PCR Nasal Parainfluen 3 PCR Nasal Parainfluen 4 PCR Nasal RSV (PCR) Nasal B.pertussis DNA PCR Nasal C.pneumoniae (PCR) [place] Human Metapneumo PCR Nasal M.pneumoniae (PCR) Nasal SARS-CoV-2 (PCR) - Rads (name of study) Chest x-ray Relevant Findings:: Final report received, EMP independent interpretation of test, Other (Cardiomegaly) PD Medical Decision Making - ED course ED course: 67-year-old female with type 1 diabetes here for increased shortness of breath. Chest x-ray does reveal that patient has cardiomegaly. She does not appear to be fluid volume overload no bilateral pitting edema I am unable to hear any fluid on the lungs chest x-ray does not show any fluid on the lungs. Labs were completed and she is quite anemic, hemoglobin is 7.8, hematocrit 26.9, MCV 80.5, MCH 23.4, RBCs 3.34 she does have slight leukocytosis, WBC 11.3. Viral swab negative. She does appear to have a slight PRINCE, GFR 41, BUN 34, normal creatinine. Magnesium 1.3, replaced. BNP is elevated at 1002 that in combination of her chest x-ray showing cardiomegaly I am concerned of some sort of heart failure high-output versus reduced ejection fraction. Patient also had an episode of hypoglycemia in the emergency department she had not had anything to eat while here she was able to bring her sugars back up to therapeutic range with p.o. intake. I attempted to call [facility] cardiology but unfortunately because she is not established with [facility]ology I was unable to get much help or support. We decided to go ahead and give patient a one-time dose of furosemide here in the emergency department to help with CHF. She was also given a couple days of additional Lasix and was told to follow-up with primary care provider tomorrow or within a couple days at the very latest for further evaluation. She was given very strict return precautions when to report back to the emergency department. Patient says that she is already feeling significantly better prior to discharge and she understands return precautions and understands the importance of having her labs reevaluated with her primary care provider Departure - Departure Disposition: Home, Self Care Clinical Impression: Elevated brain natriuretic peptide (BNP) level CHF (congestive heart failure) Qualifiers: Heart failure type: unspecified Heart failure chronicity: unspecified Qualified Code(s): I50.9 - Heart failure, unspecified Anemia Qualifiers: Anemia type: unspecified type Qualified Code(s): D64.9 - Anemia, unspecified Instructions: Heart Failure Dc Prescriptions: Furosemide [Lasix] 20 mg PO DAILY #5 tablet Comments: Thank you for trusting us with your care. I suspect that you have something called congestive heart failure this is very important that you have evaluated by your primary care provider and get something called an echocardiogram outpa tient. Make sure that you are avoiding salty foods to help with your heart failure. We also found that you have some anemia your hemoglobin is 7.8 you need to have your labs reevaluated in a couple days to make sure that this is not trending down. Please come back to the emergency department for having any chest pain, worsening shortness of breath, worsening dizziness, or any other concerning symptoms. Forms: PCP List Discharge Date/Time: 04/07/23 22:05
[2023-04-07 16:19] LABS: B. PARAPERTUSSIS- RESP PCR PAN NOT DETECTED; B. PERTUSSIS- RESP PCR PANEL NOT DETECTED; C. PNEUMONIAE- RESP PCR PANEL NOT DETECTED; CORONAVIRUS 229E-RESP PCR NOT DETECTED; CORONAVIRUS HKU1-RESP PCR NOT DETECTED; CORONAVIRUS NL63-RESP PCR NOT DETECTED; CORONAVIRUS OC43-RESP PCR NOT DETECTED; HUMAN METAPNEUMOVIRUS NOT DETECTED; INFLUENZA A- RESP PCR PANEL NOT DETECTED; INFLUENZA B - RESP PCR PANEL NOT DETECTED; M. PNEUMONIAE- RESP PCR PANEL NOT DETECTED; PARAINFLUENZA VIRUS 1 NOT DETECTED; PARAINFLUENZA VIRUS 2 NOT DETECTED; PARAINFLUENZA VIRUS 3 NOT DETECTED; PARAINFLUENZA VIRUS 4 NOT DETECTED; RHINOVIRUS/ENTEROVIRUS NOT DETECTED; RSV- RESP PCR PANEL NOT DETECTED; SARS-CoV-2 -RESP PCR PANEL NOT DETECTED
[2023-04-07] MEDS: FUROSEMIDE 20 MG TABLET PO STA (19:44)
[2023-04-07] MEDS: lisinopriL 20 MG TABLET PO STA (19:44)
[2023-04-07] MEDS: METOPROLOL TARTRATE 50 MG TABLET PO STA (19:45)
[2023-04-07 22:11] VITALS: BP 157/83; O2SAT 97
== END 2023-04-07 22:05 | disposition home or self-care (01) ==
LOC: ED 13:08
DX: I12.9 Hypertensive chronic kidney disease with stage 1 through stage 4 chronic kidney disease, or unspecified chronic kidney disease (principal); I50.9 Heart failure, unspecified; D64.9 Anemia, unspecified; R94.8 Abnormal results of function studies of other organs and systems; E10.42 Type 1 diabetes mellitus with diabetic polyneuropathy; I25.2 Old myocardial infarction; I48.91 Unspecified atrial fibrillation; I49.9 Cardiac arrhythmia, unspecified; Z79.4 Long term (current) use of insulin; Z79.01 Long term (current) use of anticoagulants; Z79.84 Long term (current) use of oral hypoglycemic drugs; Z79.899 Other long term (current) drug therapy
CPT/HCPCS: 36415; 71045; 80053; 83735; 83880; 84443; 85025; 87633; 93005; 99283; 99284; A9270

== ENCOUNTER 2023-05-13 14:17 | Outpatient (CLI) | payer MEDICARE ==
[2023-05-13 20:00] LABS: BASOPHILS # (AUTO) 0.1 10^3/uL (0.0-0.1); BASOPHILS % (AUTO) 0.6 %; EOSINOPHILS # (AUTO) 0.6 10^3/uL (0.0-0.7); EOSINOPHILS % (AUTO) 4.5 %; HCT - HEMATOCRIT 34.8 % (37.0-47.0); HGB - HEMOGLOBIN 9.5 g/dL (12.0-16.0); LYMPHOCYTES # (AUTO) 2.4 10^3/uL (1.5-3.5); LYMPHOCYTES % (AUTO) 18.2 %; MEAN CORPUSCULAR HEMOGLOBIN 24.2 pg (27.0-31.0); MEAN CORPUSCULAR HGB CONC 27.3 g/dL (32.0-36.0); MEAN CORPUSCULAR VOLUME 88.8 fL (81.0-99.0); MEAN PLATELET VOLUME 12.3 fL (7.9-10.8); MONOCYTES % (AUTO) 7.5 %; NEUTROPHILS % (AUTO) 68.4 %; PLT - PLATELET COUNT 300 10^3/uL (130-450); RED BLOOD COUNT 3.92 10^6/uL (4.20-5.40); RED CELL DISTRIBUTION WIDTH 23.4 % (12.0-15.0); WHITE BLOOD COUNT 13.1 x10^3/uL (4.8-10.8)
[2023-05-13 20:05] LABS: SLIDE REVIEW? Indicated
[2023-05-13 20:15] LABS: ESTIMATED AVERAGE GLUCOSE 154 mg/dL (70-100)
[2023-05-13 20:19] LABS: CHOL/HDL RATIO 2.8 (<4.4); CHOLESTEROL 105 mg/dL; HDL CHOLESTEROL 38 mg/dL; LDL CHOLESTEROL,CALCULATED 33 mg/dL; LDL/HDL RATIO 0.9 (<4.4); TRIGLYCERIDES 169 mg/dL (48-352); VLDL CHOLESTEROL 34 mg/dL
[2023-05-13 20:23] LABS: CREATININE,URINE 129.3 mg/dL
[2023-05-13 20:33] LABS: MICROALBUM/CREATININE RATIO,UR 740.9 ug/mg (<30.0); MICROALBUMIN,URINE 95.8 mg/dL
[2023-05-13 20:39] LABS: PLATELET ESTIMATE, MANUAL NORMAL (130-450,000) (NORMAL); PLATELET MORPHOLOGY NORMAL APPEARANCE (NORMAL)
== END 2023-05-13 14:18 | disposition home or self-care (01) ==
LOC: LAB.S 14:17
PROVIDERS: ATTEND Registered Nurse
DX: D64.9 Anemia, unspecified (principal); I51.7 Cardiomegaly; I48.20 Chronic atrial fibrillation, unspecified; E61.1 Iron deficiency; E10.9 Type 1 diabetes mellitus without complications; Z13.220 Encounter for screening for lipoid disorders
CPT/HCPCS: 36415; 80061; 82043; 82570; 82607; 83036; 83721; 85025

== ENCOUNTER 2023-06-24 13:52 | Outpatient (CLI) | payer MEDICARE ==
[2023-06-24 19:56] LABS: BASOPHILS # (AUTO) 0.1 10^3/uL (0.0-0.1); BASOPHILS % (AUTO) 0.8 %; EOSINOPHILS # (AUTO) 0.6 10^3/uL (0.0-0.7); HCT - HEMATOCRIT 35.2 % (37.0-47.0); HGB - HEMOGLOBIN 11.1 g/dL (12.0-16.0); LYMPHOCYTES # (AUTO) 3.4 10^3/uL (1.5-3.5); LYMPHOCYTES % (AUTO) 29.4 %; MEAN CORPUSCULAR HEMOGLOBIN 26.6 pg (27.0-31.0); MEAN CORPUSCULAR HGB CONC 31.5 g/dL (32.0-36.0); MEAN CORPUSCULAR VOLUME 84.2 fL (81.0-99.0); MEAN PLATELET VOLUME 11.6 fL (7.9-10.8); MONOCYTES # (AUTO) 0.8 10^3/uL (0.0-1.0); MONOCYTES % (AUTO) 7.2 %; NEUTROPHILS # (AUTO) 6.7 10^3/uL (1.5-6.6); NEUTROPHILS % (AUTO) 57.2 %; PLT - PLATELET COUNT 239 10^3/uL (130-450); RED BLOOD COUNT 4.18 10^6/uL (4.20-5.40); RED CELL DISTRIBUTION WIDTH 20.3 % (12.0-15.0); WHITE BLOOD COUNT 11.7 x10^3/uL (4.8-10.8)
[2023-06-24 20:06] LABS: CALCIUM 9.7 mg/dL (8.5-10.3); CREATININE 1.1 mg/dL (0.6-1.3)
[2023-06-24 20:28] LABS: FERRITIN 67.7 ng/mL (11.0-306.8)
[2023-06-24 22:08] LABS: ESTIMATED AVERAGE GLUCOSE 186 mg/dL (70-100); HEMOGLOBIN A1c% 8.1 % (4.27-6.07)
== END 2023-06-24 13:53 | disposition home or self-care (01) ==
LOC: LAB.S 13:52
PROVIDERS: ATTEND Registered Nurse
DX: E10.9 Type 1 diabetes mellitus without complications (principal); E61.1 Iron deficiency; D64.9 Anemia, unspecified
CPT/HCPCS: 36415; 80048; 80053; 82728; 83036; 83540; 84466; 85025

== ENCOUNTER 2023-07-12 06:20 | Day surgery (SDC) | payer MEDICARE ==
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
[2023-07-12] MEDS: LACTATED RINGERS 1,000 ML IV ONE (06:30)
--- NOTE | 2023-07-12 07:34 | CONSULTATION NOTE ---
Consultation Report: Called by pre op nurses to see this patient this morning. Her heart rate was 145-160,(SVT v. AFIB) bp 150s/90s, denies chest pain; has some shortness of breath. 12 lead ekg done, iv started, labs drawn; fsbs 317. I spoke with Dr. Lambert in the ER, and the patient was transferred to the ER about 0700 for evaluation. I spoke with Dr Cameron, and the patient's EGD and colonoscopy were cancelled for today.
== END 2023-07-12 06:21 | disposition home or self-care (01) ==
LOC: SDS 06:20
PROVIDERS: ATTEND Surgery
DX: Z12.11 Encounter for screening for malignant neoplasm of colon (principal); D64.9 Anemia, unspecified; Z53.09 Procedure and treatment not carried out because of other contraindication; I11.0 Hypertensive heart disease with heart failure; I50.9 Heart failure, unspecified; I48.20 Chronic atrial fibrillation, unspecified; E10.42 Type 1 diabetes mellitus with diabetic polyneuropathy; E66.9 Obesity, unspecified; Z68.35 Body mass index [BMI] 35.0-35.9, adult; Z79.01 Long term (current) use of anticoagulants; Z79.4 Long term (current) use of insulin; Z79.84 Long term (current) use of oral hypoglycemic drugs; Z87.891 Personal history of nicotine dependence
CPT/HCPCS: 36415; 93005; J7120

== ENCOUNTER 2023-07-12 07:10 | Emergency (ER) | payer MEDICARE ==
--- NOTE | 2023-07-12 07:23 | ED Physician Documentation ---
PD HPI DYSPNEA - Stated complaint Stated Complaint: AFIB - Chief complaint Chief Complaint: Cardiac - History obtained from History obtained from: Patient, Other (anesthesia) - History of Present Illness Timing - onset: Last night Timing - onset during: Rest Timing - duration: Hours Timing - details: Abrupt onset (not sure exactly onset but noted heart rate feeling fast when up during the night going to bathroom. [place] okay last evening at normal heart rate.), Still present Inciting event(s): Other (history of atrial fib intermittently. Is on metoprolol and eliquis and BP med. Stopped all 3 days ago at direction of colonoscopy prep directions.). No: Out of meds Worsened by: No: Exertion Associated symptoms: No: Fever, Cough Similar symptoms before: Diagnosis (went to pre-op for her scope and was noted to be in fast rate atrial fib. She could feel heart faster. No chest pain nor lightheaded. She has had atrial fib in the past in episodes.) Recently seen: No: Surgery (she was scheduled for colonoscopy today and was there at Preop for it.) Review of Systems Constitutional: denies: Fever, Chills Nose: denies: Rhinorrhea / runny nose, Congestion Throat: denies: Sore throat Respiratory: denies: Cough GI: denies: Vomiting Neurologic: denies: Generalized weakness, Near syncope PD PAST MEDICAL HISTORY - Past Medical History Past Medical History: Yes Cardiovascular: Congestive heart failure, Hypertension, Angina, PR, Atrial fibrillation, Arrhythmia, Other Respiratory: None Neuro: Peripheral neuropathy, Other Endocrine/Autoimmune: Type 1 diabetes GI: None MOBILE UI DEVELOPER: None, Other : None HEENT: Other Psych: Depression, Anxiety Musculoskeletal: None Derm: Other - Past Surgical History Past Surgical History: Yes /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 HEENT: Tonsil/Adenoidectomy - Present Medications Home Medications: Ambulatory Orders Medication Instructions Recorded Confirmed Insulin Glargine [Lantus Solostar] 35 units SUBQ BID 05/28/17 05/02/23 Insulin Lispro [Humalog] 6 units SUBQ TIDWM 05/28/17 05/02/23 lisinopriL [Lisinopril] 40 mg PO DAILY 05/28/17 05/02/23 Apixaban [Eliquis] 5 mg PO BID 08/12/18 05/02/23 Chlorthalidone 25 mg PO DAILY 08/12/18 05/02/23 Fluticasone [Flonase] 1 sprays NEGRITA BID 08/12/18 05/02/23 PARoxetine HCL [Paroxetine HCl] 40 mg PO DAILY 08/12/18 05/02/23 Nitroglycerin [Nitrostat] 0.4 mg SL PRN PRN 11/01/20 05/02/23 Nystatin [Nystop] 1 applic TOP BID 11/01/20 05/02/23 Omeprazole Magnesium 20 mg PO DAILY 11/01/20 05/02/23 metFORMIN [Glucophage] 1,000 mg PO BID 11/01/20 05/02/23 Famotidine [Pepcid] 20 mg PO DAILY #20 tablet 01/13/21 05/02/23 Cyclobenzaprine [Flexeril] 10 mg PO TID 05/02/23 05/02/23 - Allergies Allergies/Adverse Reactions: Allergies Allergy/AdvReac Type Severity Reaction Status Date / Time No Known Drug Allergies Allergy Verified 07/12/23 07:18 - Social History Does the pt smoke?: No Smoking Status: Never smoker Does the pt drink ETOH?: Yes Does the pt have substance abuse?: Yes - Immunizations Immunizations are current?: No Immunizations: TDAP >10years/unknown - POLST Patient has POLST: No POLST Status: Full Code PD ED PE NORMAL - Vitals Vital signs reviewed: Yes - General General: Alert and oriented X 3, No acute distress, Well developed/nourished - Neck Neck: Supple, no meningeal sign, No adenopathy - Cardiac Cardiac: No murmur. No: RRR (irregular though at faster rate is hard to tell regularity of it. ) - Abdomen Abdomen: Soft, Non tender - Back Back: No CVA TTP - Derm Derm: Normal color, Warm and dry - Extremities Extremities: No edema, No calf tenderness / cord Results - Vitals Vitals: Vital Signs - 24 hr 07/12/23 07/12/23 07/12/23 07:14 07:40 07:45 Temperature 36.0 C L Heart Rate 126 H 134 H 112 H Respiratory 15 15 15 Rate Blood Pressure 173/97 H 173/124 H 154/102 H O2 Saturation 94 93 94 07/12/23 07/12/23 07/12/23 07:50 07:55 08:10 Temperature Heart Rate 128 H 130 H 74 Respiratory Rate Blood Pressure 154/102 H 148/102 H 133/100 H O2 Saturation 07/12/23 07/12/23 07/12/23 08:40 08:57 10:39 Temperature Heart Rate 74 69 73 Respiratory 15 15 20 Rate Blood Pressure 156/127 H 130/100 H 177/118 H O2 Saturation 93 94 93 Oxygen O2 Source Room air - EKG (time done) 07:01 EKG releavant findings:: EKG personally interpreted by author of this note. Relevant findings are: Rate: Rate (enter#) (151) Rhythm: Atrial fibrillation Ischemia: Normal ST segments, ST depression (diffusely c/w rate related ischemia.) - Labs Labs: Laboratory Tests 07/12/23 07/12/23 07/12/23 06:58 06:58 06:58 WBC 19.5 H RBC 4.66 Hgb 12.2 Hct 38.9 MCV 83.5 MCH 26.2 L MCHC 31.4 L RDW 19.6 H Plt Count 297 MPV 11.7 H Neut # (Auto) 14.3 H Lymph # (Auto) 3.2 [place] # (Auto) 1.2 H Eos # (Auto) 0.5 Baso # (Auto) 0.1 Absolute Nucleated RBC 0.00 Nucleated RBC % 0.0 Sodium 138 Potassium 3.4 L Chloride 97 L Carbon Dioxide 28 Anion Gap 13.0 BUN 25 H Creatinine 1.2 Estimated GFR (MDRD) 45 L Glucose 318 H Calcium 9.6 Magnesium 1.1 L Iron 74 TIBC 363 % Saturation 20 Transferrin 259 Total Bilirubin 0.5 AST 20 ALT 24 Alkaline Phosphatase 65 B-Natriuretic Peptide Total Protein 7.1 Albumin 4.1 Globulin 3.0 Albumin/Globulin Ratio 1.4 Lipase 17 07/12/23 06:58 WBC RBC Hgb Hct MCV MCH MCHC RDW Plt Count MPV Neut # (Auto) Lymph # (Auto) [place] # (Auto) Eos # (Auto) Baso # (Auto) Absolute Nucleated RBC Nucleated RBC % Sodium Potassium Chloride Carbon Dioxide Anion Gap BUN Creatinine Estimated GFR (MDRD) Glucose Calcium Magnesium Iron TIBC % Saturation Transferrin Total Bilirubin AST ALT Alkaline Phosphatase B-Natriuretic Peptide 204 H Total Protein Albumin Globulin Albumin/Globulin Ratio Lipase - Rads (name of study) chest xray Relevant Findings:: Prelim report reviewed (no acute cardiopumonary process.), EMP independent interpretation of test PD Medical Decision Making - ED course Complexity details: reviewed results (wbc elevated but nonspecific. Mag low at 1.1 K at 3.4. Sugar and renal function okay. ), re-evaluated patient (pt given dose of metoprolol IV and also IV fluids. Heart rate slowed. She still felt okay. After HR around 100, it did then convert to NSR. She is still feeling okay. ), considered differential (history of occasional atrial fib. In it in pre-op for colonoscpy. No sympotms. Referred toER for eval/treatment. Pt had bee n without her metoprolol and Eliquis for 3 days in prep for scope. Also did the fluish. Will give beta bonnie IV, check lytes and give fluids. ), d/w patient ED course: Pt given IV fluids and metoprolol, then Mag as that was low from prep presumedly. She converted to NSR. Feels okay still. Checked with OR to see if pt could be done subsequently this morning/afternoon for her scope but reply was she would not be scopedtoday due the the irregularlity and will need to reschedule. Departure - Departure Disposition: 01 Home, Self Care Clinical Impression: Paroxysmal atrial fibrillation, Hypomagnesemia, Volume depletion Condition: Stable Follow-Up: Michaela Garsia ARNP [Primary Care Provider] - Comments: You were given some IV fluids here and a dose of metoprolol. You are given a partial dose of your usual oral metoprolol. I would go ahead and take your usual dose later today and your other usual medicines as well and then resume your normal pattern of medications tomorrow. Your magnesium level is a bit low, probably from the prep. I would suggest magnesium supplement just [id number] daily for a week or so. Follow-up with your primary care. Talk with your the surgeon or your primary care about rescheduling the colonoscopy if so indicated. We checked with the OR and they were not able to accommodate you back to get the scope today and were concerned about it until your electrolytes were better and your heart rate is more regular. Subsequently if you reschedule for the scope, continue with your usual medicines in particular the metoprolol and certainly hold the blood thinners for prior to the procedure. Continuing with your metoprolol with just a sip of water or so we will try to keep from having the A-fib again. Forms: PCP List Discharge Date/Time: 07/12/23 10:41
[2023-07-12] MEDS: SODIUM CHLORIDE 0.9% 1,000 ML IV STA (07:28)
[2023-07-12 07:33] LABS: BASOPHILS # (AUTO) 0.1 10^3/uL (0.0-0.1); BASOPHILS % (AUTO) 0.6 %; EOSINOPHILS # (AUTO) 0.5 10^3/uL (0.0-0.7); EOSINOPHILS % (AUTO) 2.5 %; HCT - HEMATOCRIT 38.9 % (37.0-47.0); HGB - HEMOGLOBIN 12.2 g/dL (12.0-16.0); LYMPHOCYTES # (AUTO) 3.2 10^3/uL (1.5-3.5); LYMPHOCYTES % (AUTO) 16.2 %; MEAN CORPUSCULAR HEMOGLOBIN 26.2 pg (27.0-31.0); MEAN CORPUSCULAR HGB CONC 31.4 g/dL (32.0-36.0); MEAN CORPUSCULAR VOLUME 83.5 fL (81.0-99.0); MEAN PLATELET VOLUME 11.7 fL (7.9-10.8); MONOCYTES # (AUTO) 1.2 10^3/uL (0.0-1.0); MONOCYTES % (AUTO) 6.3 %; NEUTROPHILS # (AUTO) 14.3 10^3/uL (1.5-6.6); NEUTROPHILS % (AUTO) 73.7 %; PLT - PLATELET COUNT 297 10^3/uL (130-450); RED BLOOD COUNT 4.66 10^6/uL (4.20-5.40); RED CELL DISTRIBUTION WIDTH 19.6 % (12.0-15.0); WHITE BLOOD COUNT 19.5 x10^3/uL (4.8-10.8)
[2023-07-12 07:38] LABS: MAGNESIUM 1.1 mg/dL (1.7-2.3)
[2023-07-12] MEDS: METOPROLOL 5 MG/5 ML VIAL IVP STA (07:39)
[2023-07-12 07:44] LABS: % IRON SATURATION 20 % (20-50); ALBUMIN 4.1 g/dL (3.2-5.5); ALBUMIN/GLOBULIN RATIO 1.4 (1.0-2.2); BILIRUBIN,TOTAL 0.5 mg/dL (0.2-1.0); CALCIUM 9.6 mg/dL (8.5-10.3); CREATININE 1.2 mg/dL (0.6-1.3); IRON 74 ug/dL (50-212); POTASSIUM 3.4 mmol/L (3.5-4.5); TOTAL IRON BINDING CAPACITY 363 ug/dL (250-450); TOTAL PROTEIN 7.1 g/dL (6.4-8.9); TRANSFERRIN 259 mg/dL (203-362)
--- NOTE | 2023-07-12 08:37 | XRAY Report ---
PROCEDURE: Chest 1V INDICATIONS: fast heart rate TECHNIQUE: One view of the chest was acquired. COMPARISON: None. FINDINGS: Surgical changes and devices: None. Lungs and pleura: No pleural effusions or pneumothorax. Lungs are clear. Mediastinum: Mediastinal contours appear normal. Heart size is mildly enlarged. Bones and chest wall: No suspicious bony lesions. Overlying soft tissues appear unremarkable. IMPRESSION: No acute cardiopulmonary process. Reviewed by: Sanchez Merino MD on 07/12/2023 8:35 AM PDT Approved by: Sanchez Merino MD on 07/12/2023 8:35 AM PDT Station ID: [id number]
[2023-07-12] MEDS: METOPROLOL SUCCINATE 50 MG TABLET PO SCH (09:00)
[2023-07-12] MEDS: MAGNESIUM SULFATE 2 GRAM 2 GM/50 ML BAG IV ONE (09:00)
[2023-07-12 10:48] VITALS: BP 177/118; O2SAT 93
== END 2023-07-12 10:41 | disposition home or self-care (01) ==
LOC: ED 07:10
DX: I48.0 Paroxysmal atrial fibrillation (principal); Z79.01 Long term (current) use of anticoagulants; E83.42 Hypomagnesemia; E86.9 Volume depletion, unspecified; T45.516A Underdosing of anticoagulants, initial encounter; T44.7X6A Underdosing of beta-adrenoreceptor antagonists, initial encounter; Z91.128 Patient's intentional underdosing of medication regimen for other reason; Z12.11 Encounter for screening for malignant neoplasm of colon; D64.9 Anemia, unspecified; Z53.09 Procedure and treatment not carried out because of other contraindication; I11.0 Hypertensive heart disease with heart failure; I50.9 Heart failure, unspecified; I48.20 Chronic atrial fibrillation, unspecified; E10.42 Type 1 diabetes mellitus with diabetic polyneuropathy; E66.9 Obesity, unspecified; Z68.35 Body mass index [BMI] 35.0-35.9, adult; Z79.4 Long term (current) use of insulin; Z79.84 Long term (current) use of oral hypoglycemic drugs; Z87.891 Personal history of nicotine dependence
CPT/HCPCS: 36415; 71045; 80053; 83540; 83690; 83735; 83880; 84466; 85025; 93005; 96361; 96365; 96366; 96375; 99284; A9270; J7120

== ENCOUNTER 2023-08-25 15:06 | Outpatient (CLI) | payer MEDICARE | END 2023-08-25 15:07 | disposition home or self-care (01) | LOC: DI 15:06 | PROVIDERS: ATTEND Registered Nurse | DX: I07.1 Rheumatic tricuspid insufficiency (principal); D63.8 Anemia in other chronic diseases classified elsewhere | CPT/HCPCS: 93307 ==